=== PATIENT | male | born 1935 | race Caucasian/White ===

== ENCOUNTER 2017-07-07 09:18 | Observation (INO) | payer MEDICARE, BC, OTHER ==
[~2017-07-07] VITALS: Ht 172.7 cm; Wt 76.0 kg
[2017-07-07 09:20] VITALS: BP 142/67; PULSE 92; RESP 17; TEMP 97.3; O2SAT 100
[2017-07-07] MEDS ORDERED: SODIUM CHLORIDE 0.9% FLUSH 10 ML FLUSH IVF PRN (09:30)
[2017-07-07] MEDS ORDERED: TETANUS/DIPHTHERIA TOXOID ADULT 0.5 ML VIAL IM ONE (09:30)
[2017-07-07] MEDS ORDERED: LIDOCAINE 1%/EPINEPHrine 1:100,000 SOLN 20 ML VIAL INFIL ONE (09:30)
[2017-07-07 09:44] LABS: AUTOMATED NEUTROPHIL # 3.1 TH/MM3 (1.8-7.7); BASOPHIL # 0.1 TH/MM3 (0-0.2); BASOPHIL % 1.6 % (0.0-2.0); EOSINOPHIL # 0.8 TH/MM3 (0-0.4); EOSINOPHIL % 15.2 % (0.0-4.0); HEMATOCRIT 30.7 % (39.0-51.0); HEMOGLOBIN 10.2 GM/DL (13.0-17.0); LYMPH % 18.9 % (9.0-44.0); MEAN CELL VOLUME 89.8 FL (80.0-100.0); MEAN CORPUSCULAR HEMOGLOBIN 29.8 PG (27.0-34.0); MEAN CORPUSCULAR HGB CONC 33.2 % (32.0-36.0); MEAN PLATELET VOLUME 7.2 FL (7.0-11.0); MONO % 6.1 % (0.0-8.0); MONOCYTE # 0.3 TH/MM3 (0-0.9); NEUT % 58.2 % (16.0-70.0); PLATELET COUNT 244 TH/MM3 (150-450); RED BLOOD COUNT 3.42 MIL/MM3 (4.50-5.90); RED CELL DISTRIBUTION WIDTH 14.6 % (11.6-17.2); WHITE BLOOD COUNT 5.3 TH/MM3 (4.0-11.0)
[2017-07-07] MEDS ORDERED: LIDOCAINE 1%/EPINEPHrine 1:100,000 SOLN 30 ML VIAL INFIL ONE (09:45)
[2017-07-07 09:59] LABS: BICARBONATE 25.6 MEQ/L (21.0-32.0); CALCIUM 8.9 MG/DL (8.5-10.1); CREATININE 1.71 MG/DL (0.60-1.30)
--- NOTE | 2017-07-07 09:59 | PD ---
HPI Chief Complaint: Fall Time Seen by Provider: 09:29 Travel History International Travel<30 days: No Contact w/Intl Traveler<30days: No Traveled to known affect area: No History of Present Illness HPI The patient's 82 years old and arrives by EMS after a fall. He tripped on the street striking the right supraorbital ridge causing a laceration. Passersby reported a mechanical fall. The patient reports a brief loss of consciousness. EMS notes loss as well. In the ER he denies chest pain shortness of breath nausea vomiting dizziness and diaphoresis. The onset was sudden. Application of a dressing stopped the bleeding. He denies the usage of any medication specifically anticoagulants. PFSH Past Medical History Diabetes: Yes Patient Takes Glucophage: Yes Medical other: Yes (POOR HISTORIAN) Tetanus Vaccination: Unknown Influenza Vaccination: Yes Past Surgical History Cardiac Surgery: Yes Social History Alcohol Use: No Tobacco Use: No Substance Use: No Allergies-Medications (Allergen,Severity, Reaction): Coded Allergies: No Known Allergies (Unverified , 07/07/17) Reported Meds & Prescriptions Reported Meds & Active Scripts Active Active Prescriptions or Reported Medications Unobtainable Review of Systems Except as stated in HPI: all other systems reviewed are Neg General / Constitutional: Positive: Fever HENT: No: Headaches Physical Exam Narrative GENERAL: 82-year-old male mild distress well-nourished well-developed cooperative Vital Signs Date Time Temp Pulse Resp B/P (MAP) Pulse Ox O2 Delivery O2 Flow Rate FiO2 07/07/17 09:20 97.3 92 17 142/67 (92) 100 Room Air SKIN: Warm and dry. Trace contusion overlying the right patella without tenderness. HEAD: Atraumatic. Normocephalic. Overlying the right supraorbital ridge there is a 3 cm laceration linear about 2 mm wide. EYES: Pupils equal and round. No scleral icterus. No injection or drainage. ENT: No nasal bleeding or discharge. Mucous membranes pink and moist. NECK: Trachea midline. No JVD. CARDIOVASCULAR: Heart rate approximately 90. Her rhythm is regular. RESPIRATORY: No accessory muscle use. Clear to auscultation. Breath sounds equal bilaterally. GASTROINTESTINAL: Abdomen soft, non-tender, nondistended. Hepatic and splenic margins not palpable. MUSCULOSKELETAL: Extremities without clubbing, cyanosis, or edema. No obvious deformities. NEUROLOGICAL: Awake and alert. No obvious cranial nerve deficits. Motor grossly within normal limits. Five out of 5 muscle strength in the arms and legs. Normal speech. PSYCHIATRIC: Appropriate mood and affect; insight and judgment normal. Data Data Last Documented VS Vital Signs Date Time Temp Pulse Resp B/P (MAP) Pulse Ox O2 Delivery O2 Flow Rate FiO2 07/07/17 09:20 97.3 92 17 142/67 (92) 100 Room Air Orders Orders Electrocardiogram (07/07/17:29) Basic Metabolic Panel (Bmp) (07/07/17:29) Complete Blood Count With Diff (07/07/17:29) Act Partial Throm Time (Ptt) (07/07/17:29) Prothrombin Time / Inr (Pt) (07/07/17:29) Ct Brain W/O Iv Contrast(Rout) (07/07/17:29) Ct Cerv Spine W/O Contrast (07/07/17:29) Ecg Monitoring (07/07/17:29) Iv Access Insert/Monitor (07/07/17:29) Oximetry (07/07/17 09:29) Sodium Chloride 0.9% Flush (Ns Flush) (07/07/17 09:30) Tetanus/Diphtheria Tox Adult (Tetanus/Di (07/07/17 09:30) Lidocai-Epi 1%-1:100,000 Inj (Xylocaine- (07/07/17 09:30) Lidocai-Epi 1%-1:100,000 Inj (Xylocaine- (07/07/17 09:45) Place In Observation (07/07/17 ) Vital Signs (Adult) Q4H (07/07/17 11:31) Activity Oob Ad Gail (07/07/17 11:31) Division Supervisor / Telemetry MONY.Q8H (07/07/17 11:31) Intake + Output MONY.QSHIFT (07/07/17 11:31) Neuro Checks Q4H (07/07/17 11:31) Diet Heart Healthy (07/07/17 Lunch) Sodium Chloride 0.9% Flush (Ns Flush) (07/07/17 11:45) Sodium Chloride 0.9% Flush (Ns Flush) (07/07/17 21:00) Complete Blood Count With Diff (07/08/17 06:00) Basic Metabolic Panel (Bmp) (07/08/17 06:00) Troponin I (07/07/17 11:31) Troponin I (07/07/17 17:31) Echo 2d Comp With Doppler (07/07/17 ) Us Carotid Arteries Comp Bilat (07/07/17 ) Admit Order (Ed Use Only) (07/07/17 ) Division Supervisor / Telemetry MONY.Q8H (07/07/17 11:33) Vital Signs (Adult) Q4H (07/07/17 11:33) Activity Bed Rest (07/07/17 11:33) Labs Laboratory Tests Test 07/07/17 09:36 White Blood Count 5.3 TH/MM3 Red Blood Count 3.42 MIL/MM3 Hemoglobin 10.2 GM/DL Hematocrit 30.7 % Mean Corpuscular Volume 89.8 FL Mean Corpuscular Hemoglobin 29.8 PG Mean Corpuscular Hemoglobin Concent 33.2 % Red Cell Distribution Width 14.6 % Platelet Count 244 TH/MM3 Mean Platelet Volume 7.2 FL Neutrophils (%) (Auto) 58.2 % Lymphocytes (%) (Auto) 18.9 % Monocytes (%) (Auto) 6.1 % Eosinophils (%) (Auto) 15.2 % Basophils (%) (Auto) 1.6 % Neutrophils # (Auto) 3.1 TH/MM3 Lymphocytes # (Auto) 1.0 TH/MM3 Monocytes # (Auto) 0.3 TH/MM3 Eosinophils # (Auto) 0.8 TH/MM3 Basophils # (Auto) 0.1 TH/MM3 CBC Comment DIFF FINAL Differential Comment Prothrombin Time 11.1 SEC Prothromb Time International Ratio 1.1 RATIO Activated Partial Thromboplast Time 22.9 SEC Blood Urea Nitrogen 34 MG/DL Creatinine 1.71 MG/DL Random Glucose 269 MG/DL Calcium Level 8.9 MG/DL Sodium Level 136 MEQ/L Potassium Level 4.9 MEQ/L Chloride Level 102 MEQ/L Carbon Dioxide Level 25.6 MEQ/L Anion Gap 8 MEQ/L Estimat Glomerular Filtration Rate 38 ML/MIN [facility] Medical Decision Making Medical Screen Exam Complete: Yes Emergency Medical Condition: Yes Medical Record Reviewed: Yes Differential Diagnosis ICH, scalp laceration, contusion, skull fracture, c-spine fracture, syncope, arrhythmia, electrolyte imbalance, metabolic disarray Narrative Course CBC & BMP Diagram 3/22/18 09:36 Calcium Level 8.9 EKG shows a sinus rhythm with a rate of 91 right 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 d/w Dr Whittaker Diagnosis Primary Impression: Fall Qualified Codes: W19.XXXA - Unspecified fall, initial encounter Additional Impressions: Laceration of forehead Qualified Codes: S01.81XA - Laceration without foreign body of other part of head, initial encounter Syncope and collapse Admitting Information Admitting Physician Requests: Observation Scripts Unable to Obtain Active Prescriptions or Reported Meds Tito Foster MD Jul 07, 2017 09:59
[2017-07-07 10:00] LABS: INTERNATIONAL NORMALIZED RATIO 1.1 RATIO; PROTHROMBIN TIME - PATIENT 11.1 SEC (9.8-11.6)
--- NOTE | 2017-07-07 10:13 | RADRPT ---
EXAM DATE/TIME: 07/07/2017 09:56 [facility] COMPARISON: No previous studies available for comparison. INDICATIONS : Fall, laceration to right side of head. RADIATION DOSE: 34.73 CTDIvol (mGy) MEDICAL HISTORY : Cardiovascular disease. Diabetes mellitus type 2. SURGICAL HISTORY : None. ENCOUNTER: Initial ACUITY: 1 day PAIN SCALE: 4/10 LOCATION: Right parietal TECHNIQUE: Multiple contiguous axial images were obtained of the head. Using automated exposure control and adj ustment of the mA and/or kV according to patient size, radiation dose was kept as low as reasonably a chievable to obtain optimal diagnostic quality images. DICOM format image data is available electro nically for review and comparison. FINDINGS: There is diminished white matter attenuation in the left frontal region which appears remote. Small b polina ganglia lacunar infarcts bilaterally. No evidence of intracranial mass or hemorrhage. Nothing to suggest acute infarction. Ventricles are symmetric and normal. There is mild scalp swelling in the right frontal region. No evidence of underlying skull fracture. S inuses mastoids are clear. CONCLUSION: No acute intracranial injury Zachary Tracy MD on July 07, 2017 at 10:09 Board Certified Radiologist. This report was verified electronically.
--- NOTE | 2017-07-07 10:20 | RADRPT ---
EXAM DATE/TIME: 07/07/2017 09:56 [facility] COMPARISON: No previous studies available for comparison. INDICATIONS : Fall, neck pain. RADIATION DOSE: 13.73 CTDIvol (mGy) MEDICAL HISTORY : Cardiovascular disease. Diabetes mellitus type 2. SURGICAL HISTORY : None. ENCOUNTER: Initial ACUITY: 1 day PAIN SCALE: 4/10 LOCATION: neck TECHNIQUE: Volumetric scanning of the cervical spine was performed. Multiplanar reconstructions in the sagittal, coronal and oblique axial planes were performed. Using automated exposure control and adjustment o f the mA and/or kV according to patient size, radiation dose was kept as low as reasonably achievable to obtain optimal diagnostic quality images. DICOM format image data is available electronically f or review and comparison. FINDINGS: Cervical spine alignment is satisfactory. There is no evidence of cervical spine fracture. There is p rominent degenerative spondylosis present throughout. There is no evidence of paraspinal hematoma. At C3-4, there is broad dorsal disc protrusion. Mild endplate and bilateral uncovertebral joint osteo phytic spurring with a slight degree of bilateral bony foraminal stenosis. At C4-5, small broad central disc protrusion is present. Moderate bilateral posterior facet arthropat hy, slightly worse on the left than the right. Mild degree of bilateral bony foraminal stenosis. At C5-6, broad dorsal disc osteophyte is present. Mild bilateral uncovertebral last occurring with sl ight asymmetrically left-sided bony foraminal stenosis. Tiny nodules are present in the thyroid bilaterally. CONCLUSION: No acute bony injury in the cervical spine Zachary Tracy MD on July 07, 2017 at 10:13 Board Certified Radiologist. This report was verified electronically.
[2017-07-07] MEDS ORDERED: SODIUM CHLORIDE 0.9% FLUSH 10 ML FLUSH IV FLUSH PRN (11:45)
[2017-07-07] MEDS ORDERED: TAMS0.4C4 PO (12:50)
[2017-07-07] MEDS ORDERED: VALS1TAB63 PO (12:50)
[2017-07-07] MEDS ORDERED: METF500T PO (12:50)
[2017-07-07] MEDS ORDERED: GLIM1TAB PO (12:50)
--- NOTE | 2017-07-07 12:52 | RADRPT ---
EXAM DATE/TIME: 07/07/2017 11:56 [facility] COMPARISON: No previous studies available for comparison. INDICATIONS : Syncope. MEDICAL HISTORY : Diabetes. SURGICAL HISTORY : ENCOUNTER: Initial ACUITY: 1 day PAIN SCORE: 2/10 LOCATION: Bilateral Carotids. PEAK SYSTOLIC VELOCITIES (cm/sec): ICA/CCA RATIO: Right: 0.9 Left: 1.4 ICA: Right: 71 Left: 100 CCA: Right: 75 Left: 74 ECA: Right: 97 Left: 55 VERTEBRAL: Right: 30 antegrade Left: 49 antegrade Elevated flow velocities and ICA/CCA ratios have been found to correlate with increased degrees of vessel stenosis, calculated as percentage of diameter relative to a normal segment of distal ICA/CCA FINDINGS: RIGHT CAROTID: Mild calcified atherosclerotic plaquing at the bifurcation. No significant stenosis is visualized. T he waveforms are within normal limits. LEFT CAROTID: Mild soft atherosclerotic plaquing at the bifurcation. No significant stenosis is visualized. The wa veforms are within normal limits. VERTEBRAL ARTERIES: Antegrade flow is seen in both vertebral arteries. MISCELLANEOUS: None. CONCLUSION: Mild atherosclerotic plaquing at both carotid bifurcations. No focal high grade or hemodynamically si gnificant stenosis is demonstrated. Sylvain Doss MD on July 07, 2017 at 12:49 Board Certified Radiologist. This report was verified electronically.
--- NOTE | 2017-07-07 13:41 | EKG ---
Date Performed: 07/07/2017 Time Performed: 09:33:08 PTAGE: 82 years EKG: Marked baseline artifact PROBABLE Sinus rhythm RIGHT BUNDLE BRANCH BLOCK LEFT ANTERIOR FASCICULAR BLOCK LEFT VENTRICULAR HYPERTROPHY AND ST-T FOY E POSSIBLE SEPTAL MYOCARDIAL INFARCTION ABNORMAL ECG NO PREVIOUS TRACING DOCTOR: Yifan Ericksno Interpretating Date/Time 07/07/2017 13:22:06
[2017-07-07 14:00] VITALS: BP 136/76; PULSE 88; RESP 18; TEMP 97.7; O2SAT 96
[2017-07-07 15:32] VITALS: PULSE 82
--- NOTE | 2017-07-07 16:33 | HHI.HP ---
[facility] Service [facility] Primary Care Physician Unknown Admission Diagnosis Syncope, Fall, Laceration Diagnoses: Chief Complaint: fall, syncope Travel History International Travel<30 Days: No Contact w/Intl Traveler <30 Da: No Traveled to Known Affected Are: No History of Present Illness Written by Lacey Aguilar, acting as scribe for Dr. Whittaker on 07/07/17 at 16:28. 82-year-old male with history of DM, HTN, nocturia, presents after fall and syncope today. 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 He states he hit his head, arms, and all over. He believes he may have lost consciousness for a brief moment but remembers bystanders standing over him. He denies ever having any chest pain, shortness of breath, diaphoresis, nausea/vomiting, or any other medical complaints. He sustained laceration to his right eyebrow and multiple abrasions at his right cheek, right hand, and right knee. He denies any headache , lightheadedness, dizziness. He denies any other medical complaints at this time. When asked about chest pain, he does report 2 months ago he started having right breast/nipple pain with touch. He states his primary care physician plans to get imaging studies of his breast. 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 Hoyt in [place], [place]. He states he has a pacemaker. He denies being on any blood thinners. He has no other medical complaints at this time. Review of Systems Except as stated in HPI: all other systems reviewed are Neg Past Family Social History Past Medical History DM HTN Nocturia Past Surgical History pacemaker placement, 1 year ago Reported Medications Glimepiride 1 Mg Tab 0.5 Mg PO DAILY Take with breakfast or first main meal Valsartan 40 Mg Tab 40 Mg PO DAILY Tamsulosin (Tamsulosin HCl) 0.4 Mg Cap 0.4 Mg PO HS Metformin (Metformin HCl) 500 Mg Tab 500 Mg PO TID Allergies: Coded Allergies: No Known Allergies (Unverified , 07/07/17) Active Ordered Medications Current Medications Medications (Trade) Dose Ordered Sig/Aki Route Start Time Stop Time Status Last Admin (NS Flush) 2 ml UNSCH PRN IV FLUSH 07/07/17 11:45 (NS Flush) 2 ml BID IV FLUSH 07/07/17 21:00 (Bactroban 2% Oint) 1 applic Q12HR TOPICAL 07/07/17 21:00 Family History mother with cancer, unknown type father with alcoholism, around age 27-28 Social History Denies tobacco, alcohol, or illicit drug use. . From [place], speaks Armenian well Physical Exam Vital Signs Vital Signs Date Time Temp Pulse Resp B/P (MAP) Pulse Ox O2 Delivery O2 Flow Rate FiO2 07/07/17 15:32 82 07/07/17 14:00 97.7 88 18 136/76 (96) 96 07/07/17 13:21 07/07/17 09:20 97.3 92 17 142/67 (92) 100 Room Air Physical Exam GENERAL: Well-nourished, well-developed pleasant elderly male patient in [facility]. SKIN: Warm and dry. Abrasion on right knee, right cheek, right palm, right 4 fingertip, right distal finger, right cheek. Laceration of right eyebrow s/p suture repair. HEAD: Normocephalic. EYES: Pupils equal and round. No scleral icterus. No injection or drainage. ENT: No nasal bleeding or discharge. Mucous membranes pink and moist. NECK: Supple. Trachea midline. CARDIOVASCULAR: Regular rate and rhythm. No murmur appreciated. TTP at right nipple. RESPIRATORY: No accessory muscle use. Clear to auscultation. Breath sounds equal bilaterally. GASTROINTESTINAL: Abdomen soft, non-tender, nondistended. Normoactive bowel sounds x4. MUSCULOSKELETAL: No obvious deformities. Extremities without clubbing, cyanosis , or edema. Contractures of fingers. NEUROLOGICAL: Awake and alert. No obvious cranial nerve deficits. Motor grossly within normal limits. 5/5 muscle strength in bilateral upper and lower extremities. Normal speech. PSYCHIATRIC: Appropriate mood and affect; insight and judgment normal. Laboratory Laboratory Tests Test 07/07/17 09:36 07/07/17 14:12 White Blood Count 5.3 Red Blood Count 3.42 Hemoglobin 10.2 Hematocrit 30.7 Mean Corpuscular Volume 89.8 Mean Corpuscular Hemoglobin 29.8 Mean Corpuscular Hemoglobin Concent 33.2 Red Cell Distribution Width 14.6 Platelet Count 244 Mean Platelet Volume 7.2 Neutrophils (%) (Auto) 58.2 Lymphocytes (%) (Auto) 18.9 Monocytes (%) (Auto) 6.1 Eosinophils (%) (Auto) 15.2 Basophils (%) (Auto) 1.6 Neutrophils # (Auto) 3.1 Lymphocytes # (Auto) 1.0 Monocytes # (Auto) 0.3 Eosinophils # (Auto) 0.8 Basophils # (Auto) 0.1 CBC Comment DIFF FINAL Differential Comment Prothrombin Time 11.1 Prothromb Time International Ratio 1.1 Activated Partial Thromboplast Time 22.9 Blood Urea Nitrogen 34 Creatinine 1.71 Random Glucose 269 Calcium Level 8.9 Sodium Level 136 Potassium Level 4.9 Chloride Level 102 Carbon Dioxide Level 25.6 Anion Gap 8 Estimat Glomerular Filtration Rate 38 Troponin I 0.02 Result Diagram: 07/07/1793507/07/17935 Imaging Last Impressions Head CT 07/07/17928 Signed Impressions: Service Date/Time: June 09:56 - CONCLUSION: No acute intracranial injury Zachary Tracy MD Cervical Spine CT 07/07/17928 Signed Impressions: Service Date/Time: June 09:56 - CONCLUSION: No acute bony injury in the cervical spine Zachary Tracy MD Carotid Artery Ultrasound 07/07/17 0000 Signed Impressions: Service Date/Time: June 11:56 - CONCLUSION: Mild atherosclerotic plaquing at both carotid bifurcations. No focal high grade or hemodynamically significant stenosis is demonstrated. Sylvain Doss MD Caprini VTE Risk Assessment Caprini VTE Risk Assessment: Mod/High Risk (score >= 2) Caprini Risk Assessment Model Point Value = 1 Point Value = 2 Point Value = 3 Point Value = 5 Age 41-60 Minor surgery BMI > 25 kg/m2 Swollen legs Varicose veins or History of unexplained or recurrent spontaneous Oral contraceptives or hormone replacement Sepsis (< 1 month) Serious lung disease, including pneumonia (< 1 month) Abnormal pulmonary function Acute myocardial infarction Congestive heart failure (< 1 month) History of inflammatory bowel disease Medical patient at bed rest Age 61-74 Arthroscopic surgery Major open surgery (> 45 min) Laparoscopic surgery (> 45 min) Malignancy Confined to bed (> 72 hours) Immobilizing plaster cast Central venous access Age >= 75 History of VTE Family history of VTE Factor V Leiden Prothrombin [id number] Lupus anticoagulant Anticardiolipin antibodies Elevated serum homocysteine Heparin-induced thrombocytopenia Other congenital or acquired thrombophilia Stroke (< 1 month) Elective arthroplasty Hip, pelvis, or leg fracture Acute spinal cord injury (< 1 month) Prophylaxis Regimen Total Risk Factor Score Risk Level Prophylaxis Regimen 0-1 Low Early ambulation 2 Moderate Order ONE of the following: *Sequential Compression Device (SCD) *Heparin 5000 units SQ BID 3-4 Higher Order ONE of the following medications: *Heparin 5000 units SQ TID *Enoxaparin/Lovenox 40 mg SQ daily (WT < 150 kg, CrCl > 30 mL/min) *Enoxaparin/Lovenox 30 mg SQ daily (WT < 150 kg, CrCl > 10-29 mL/min) *Enoxaparin/Lovenox 30 mg SQ BID (WT < 150 kg, CrCl > 30 mL/min) AND/OR *Sequential Compression Device (SCD) 5 or more Highest Order ONE of the following medications: *Heparin 5000 units SQ TID (Preferred with Epidurals) *Enoxaparin/Lovenox 40 mg SQ daily (WT < 150 kg, CrCl > 30 mL/min) *Enoxaparin/Lovenox 30 mg SQ daily (WT < 150 kg, CrCl > 10-29 mL/min) *Enoxaparin/Lovenox 30 mg SQ BID (WT < 150 kg, CrCl > 30 mL/min) AND *Sequential Compression Device (SCD) Assessment and Plan Problem List: (1) ZULEMA (acute kidney injury) ICD Code: N17.9 - Acute kidney failure, unspecified (2) Fall ICD Code: W19.XXXA - Unspecified fall, initial encounter Status: Acute (3) Syncope and collapse ICD Code: R55 - Syncope and collapse Status: Acute (4) Laceration of forehead ICD Code: S01.81XA - Laceration without foreign body of other part of head, initial encounter Status: Acute Assessment and Plan 82-year-old male with history of DM, HTN, nocturia, presents after fall and syncope today 07/07. Fall/Syncope: suspect mechanical trip/fall, however reported possible loss of consciousness. -Head CT and C-spine CT images reviewed, no acute findings -Carotid U/S with mild atherosclerotic plaquing at both carotid bifurcations without any focal high grade or hemodynamically significant stenosis -Check echocardiogram -Check orthostatic vital signs -Check serial cardiac enzymes, first set negative -EKG reviewed, shows RBBB, LAFB, LVH -Check chest xray -Monitor on telemetry -Consult PT Diabetes Mellitus: chronic -BG elevated at 269 upon arrival, however possible stress reaction -monitor Accu-checks and cover with SSI -continue patient's glimepiride, hold patient's metformin for now ZULEMA: Cr 1.71, no previous labs to compare however no reported kidney disease -give IVF hydration with NS at 100cc/hr x1L -avoid nephrotoxins -repeat BMP in am HTN: chronic, BP currently well controlled -hold patient's valsartan for now with ZULEMA and suspected syncope -monitor BP, adjust antihypertensives as needed Nocturia: chronic -continue patient's flomax Eyebrow Laceration and Multiple Abrasion: Eyebrow lac s/p repair in the ED -local wound care with NS and mupirocin ointment -have sutures removed in 5 days (07/12) DVT Prophylaxis: teds/SCDs for now, hold chemoprophylaxis with recent head injury This note was transcribed by radha Aguilar. I, Dr. Gloria Whittaker personally performed the history, physical exam, and medical decision making; and confirmed the accuracy of the information in the transcribed note. Authenticated by Dr. Gloria Whittaker on 07/07/17 at 16:28. Update at 6:54 pm: RN notified me (Dr. Whittaker) that ECHO was called by Dr. Gandara and notified her that EF was 25%. I have placed a cardiology consult for further eval. Code Status Full Code, "patient states of course, I want to live as long as I can" Discussed Condition With Patient, ER MD Problem Qualifiers (1) Fall: Qualified Codes: W19.XXXA - Unspecified fall, initial encounter (2) Laceration of forehead: Qualified Codes: S01.81XA - Laceration without foreign body of other part of head, initial encounter Lacey Aguilar PA-C Jul 07, 2017 16:33 Gloria Whittaker MD Jul 07, 2017 18:55
[2017-07-07 17:31] VITALS: BP 137/71; PULSE 86; RESP 18; TEMP 98.2; O2SAT 95
[2017-07-07] MEDS ORDERED: SODIUM CHLOR 0.9% 1000 ML INJ 1,000 ML IV SCH (17:45)
[2017-07-07] MEDS ORDERED: PILL SPLITTER OTHER PRN (18:15)
--- NOTE | 2017-07-07 18:20 | RADRPT ---
EXAM DATE/TIME: 07/07/2017 17:56 [facility] COMPARISON: No previous studies available for comparison. INDICATIONS : Chest pain post fall. MEDICAL HISTORY : Cardiovascular disease. Diabetes mellitus type 2. SURGICAL HISTORY : None. ENCOUNTER: Initial ACUITY: 1 day PAIN SCORE: 5/10 LOCATION: Left chest FINDINGS: A single view of the chest demonstrates the lungs to be symmetrically aerated without evidence of mas s, infiltrate or effusion. Minimal basilar atelectasis or scarring. The cardiomediastinal contours ar e unremarkable. Osseous structures are intact. Advanced osteoarthritis left shoulder.. CONCLUSION: 1. Mild basilar atelectasis or scarring. Advanced osteoarthritis of the shoulders, left greater than right. Sumanth Barriga MD on July 07, 2017 at 18:17 Board Certified Radiologist. This report was verified electronically.
[2017-07-07 20:56] VITALS: BP 113/54; PULSE 75; RESP 16; TEMP 98.1; O2SAT 99
[2017-07-07] MEDS: SODIUM CHLORIDE 0.9% FLUSH 10 ML FLUSH IV FLUSH SCH (21:00)
[2017-07-07] MEDS: TAMSULOSIN HCL 0.4 MG CAP PO SCH (22:37)
[2017-07-08] VITALS (10 sets, daily range): BP systolic 91–116; BP diastolic 51–59; PULSE 68–84; RESP 16–20; TEMP 97.6–99.4; O2SAT 93–100
[2017-07-08] MEDS: MUPIROCIN 2% OINT 22 GM TUBE TOPICAL SCH ×3 (00:29→22:48)
[2017-07-08 07:54] LABS: AUTOMATED NEUTROPHIL # 4.2 TH/MM3 (1.8-7.7); BASOPHIL # 0.1 TH/MM3 (0-0.2); BASOPHIL % 1.2 % (0.0-2.0); EOSINOPHIL % 14.5 % (0.0-4.0); HEMATOCRIT 26.8 % (39.0-51.0); HEMOGLOBIN 9.2 GM/DL (13.0-17.0); LYMPH % 16.5 % (9.0-44.0); LYMPHOCYTE # 1.2 TH/MM3 (1.0-4.8); MEAN CELL VOLUME 88.1 FL (80.0-100.0); MEAN CORPUSCULAR HEMOGLOBIN 30.1 PG (27.0-34.0); MEAN CORPUSCULAR HGB CONC 34.2 % (32.0-36.0); MEAN PLATELET VOLUME 7.4 FL (7.0-11.0); MONO % 9.4 % (0.0-8.0); MONOCYTE # 0.7 TH/MM3 (0-0.9); NEUT % 58.4 % (16.0-70.0); PLATELET COUNT 219 TH/MM3 (150-450); RED BLOOD COUNT 3.04 MIL/MM3 (4.50-5.90); RED CELL DISTRIBUTION WIDTH 14.5 % (11.6-17.2); WHITE BLOOD COUNT 7.1 TH/MM3 (4.0-11.0)
[2017-07-08] MEDS: SODIUM CHLORIDE 0.9% FLUSH 10 ML FLUSH IV FLUSH SCH ×2 (08:15→21:00)
[2017-07-08] MEDS: GLIMEPIRIDE 1 MG TAB PO SCH (08:16)
[2017-07-08 08:21] LABS: BICARBONATE 29.3 MEQ/L (21.0-32.0); BLOOD UREA NITROGEN 26 MG/DL (7-18); CALCIUM 8.4 MG/DL (8.5-10.1); CHLORIDE 105 MEQ/L (98-107); CREATININE 1.42 MG/DL (0.60-1.30); GLOMERULAR FILTRATION RATE 47 ML/MIN (>89); GLUCOSE,RANDOM 111 MG/DL (74-106); IRON (FE) 43 MCG/DL (65-175); SODIUM (NA) 140 MEQ/L (136-145)
[2017-07-08 08:42] LABS: % SATURATION IRON PROFILE 13.9 % (20-50); FERRITIN 24 NG/ML (26-388); TOTAL IRON BINDING CAPACITY 309 MCG/DL (250-450)
--- NOTE | 2017-07-08 10:51 | HHI.PR ---
Subjective Remarks Follow up for fall, syncope. The patient reports feeling well today. He is ambulating his room and to the bathroom without difficulty. He denies any headache, lightheadedness, dizziness, chest pain, palpitations, shortness of breath, abdominal pain, nausea/vomiting, or diarrhea. Discussed with the patient's daughter over the phone while in the room with the patient. Patient' s daughter reports she received a phone call from [facility] reported the patient did pass out. [facility] reportedly stated when they tried to stand him up from the ground, he blacked out. The patient denies any syncopal event. Last night the echo report was called to my attending Dr. Whittaker, reportedly showed ejection fraction of 25%, no report available yet. The patient denies any prior history of CHF. He does report that he followed with a press puller Dr. Hoyt in [place], [place], but does not have any local press puller. The patient's daughter confirms this. The patient denies any shortness of breath, dyspnea on exertion, lower extremity edema, or weight gain. He states he can usually ambulate fair distances without any difficulty. The patient again tries to tell me that he has a pacemaker, however on chest x -ray, no pacemaker identified. Discussed with RN to obtain records from press puller. Objective Vitals Vital Signs Date Time Temp Pulse Resp B/P (MAP) Pulse Ox O2 Delivery O2 Flow Rate FiO2 07/08/17 09:02 97.6 78 18 91/54 (66) 100 07/08/17 07:11 79 07/08/17 04:15 84 07/08/17 04:06 98.0 76 16 97/56 (70) 99 07/08/17 00:07 98.2 75 16 116/56 (76) 99 107/54 (71) 106/55 (72) 07/07/17 20:56 98.1 75 16 113/54 (73) 99 07/07/17 17:31 98.2 86 18 137/71 (93) 95 07/07/17 15:32 82 07/07/17 14:00 97.7 88 18 136/76 (96) 96 07/07/17 13:21 I/O 07/07/17 07/07/17 07/07/17 07/08/17 07/08/17 07/08/17 07:00 15:00 23:00 07:00 15:00 23:00 Intake Total 990 ml Output Total 670 ml Balance 320 ml Intake IV Total 990 ml Output Urine Total 670 ml Result Diagram: 07/08/1770407/08/17704 Imaging Last Impressions Head CT 07/07/17928 Signed Impressions: Service Date/Time: June 09:56 - CONCLUSION: No acute intracranial injury Zachary Tracy MD Cervical Spine CT 07/07/17928 Signed Impressions: Service Date/Time: June 09:56 - CONCLUSION: No acute bony injury in the cervical spine Zachary Tracy MD Chest X-Ray 07/07/17 0000 Signed Impressions: Service Date/Time: June 17:56 - CONCLUSION: 1. Mild basilar atelectasis or scarring. Advanced osteoarthritis of the shoulders, left greater than right. Sumanth Barriga MD Carotid Artery Ultrasound 07/07/17 0000 Signed Impressions: Service Date/Time: June 11:56 - CONCLUSION: Mild atherosclerotic plaquing at both carotid bifurcations. No focal high grade or hemodynamically significant stenosis is demonstrated. Sylvain Doss MD Objective Remarks GENERAL: Well-nourished, well-developed pleasant elderly male patient in [facility]. SKIN: Warm and dry. Abrasion on right knee, right cheek, right palm, right 4 fingertip, right distal finger, right cheek. Laceration of right eyebrow s/p suture repair. HEENT: Normocephalic. Pupils equal and round. Mucous membranes pink and moist. NECK: Supple. Trachea midline. CARDIOVASCULAR: Regular rate and rhythm. No murmur appreciated. TTP at right nipple. RESPIRATORY: No accessory muscle use. Clear to auscultation. Breath sounds equal bilaterally. GASTROINTESTINAL: Abdomen soft, non-tender, nondistended. Normoactive bowel sounds x4. MUSCULOSKELETAL: No obvious deformities. Extremities without clubbing, cyanosis , or edema. Contractures of fingers. NEUROLOGICAL: Awake and alert. No obvious cranial nerve deficits. Motor grossly within normal limits. 5/5 muscle strength in bilateral upper and lower extremities. Normal speech. PSYCHIATRIC: Appropriate mood and affect; insight and judgment normal. Medications and IVs Current Medications Medications (Trade) Dose Ordered Sig/Aki Route Start Time Stop Time Status Last Admin (NS Flush) 2 ml UNSCH PRN IV FLUSH 07/07/17 11:45 (NS Flush) 2 ml BID IV FLUSH 07/07/17 21:00 07/08/17 08:15 (Bactroban 2% Oint) 1 applic Q12HR TOPICAL 07/07/17 21:00 07/08/17 08:18 (Amaryl) 0.5 mg DAILY PO 07/08/17 09:00 07/08/17 08:16 (Flomax) 0.4 mg HS PO 07/07/17 21:00 07/07/17 22:37 (Pill Splitter) 1 ea UNSCH PRN OTHER 07/07/17 18:15 A/P Problem List: (1) ZULEMA (acute kidney injury) ICD Code: N17.9 - Acute kidney failure, unspecified (2) Fall ICD Code: W19.XXXA - Unspecified fall, initial encounter Status: Acute (3) Syncope and collapse ICD Code: R55 - Syncope and collapse Status: Acute (4) Laceration of forehead ICD Code: S01.81XA - Laceration without foreign body of other part of head, initial encounter Status: Acute Assessment and Plan 82-year-old male with history of DM, HTN, nocturia, presents after fall and syncope today 07/07. Fall/Syncope: suspect mechanical trip/fall, however reported loss of consciousness by [facility]. -Head CT and C-spine CT images reviewed, no acute findings -Carotid U/S with mild atherosclerotic plaquing at both carotid bifurcations without any focal high grade or hemodynamically significant stenosis -Echocardiogram with reported EF 25%, no official report available yet -Orthostatic vital signs negative -Troponins negative x2, EKG reviewed, shows RBBB, LAFB, LVH - no previous EKG to compare -Chest xray reviewed, shows mild basilar atelectasis or scarring; otherwise no acute cardiopulmonary findings; NO PACER PRESENT -Monitor on telemetry -Consult PT, no PT needed at discharge Cardiomyopathy?: wet read on echocardiogram reportedly with EF 25%. Patient is not aware of CHF diagnosis, claiming he has Pacer however CXR does not show any pacer -request records from patient's previous press puller Dr. Hoyt in [place], [place] -consult cardiology Diabetes Mellitus: chronic -BG elevated at 269 upon arrival, however suspect stress reaction -monitor Accu-checks and cover with SSI -continue patient's glimepiride, hold patient's metformin for now -BG improved ZULEMA: Cr 1.71, no previous labs to compare however no reported kidney disease -given IVF hydration with NS x1L -avoid nephrotoxins -renal function improving, repeat Cr 1.4, will give additional IVF with NS at 84cc/hr x1L -repeat BMP in am HTN: chronic, BP currently well controlled -hold patient's valsartan for now with ZULEMA and suspected syncope -monitor BP, adjust antihypertensives as needed Nocturia: chronic -continue patient's flomax Eyebrow Laceration and Multiple Abrasions: Eyebrow lac s/p repair in the ED -local wound care with NS and mupirocin ointment -have sutures removed in 5 days (07/12) DVT Prophylaxis: teds/SCDs for now, hold chemoprophylaxis with recent head injury Discharge Planning Discharge pending cardiology evaluation and clearance. Problem Qualifiers (1) Fall: Qualified Codes: W19.XXXA - Unspecified fall, initial encounter (2) Laceration of forehead: Qualified Codes: S01.81XA - Laceration without foreign body of other part of head, initial encounter Lacey Aguilar PA-C Jul 08, 2017 10:51 am
[2017-07-08] MEDS ORDERED: SODIUM CHLOR 0.9% 1000 ML INJ 1,000 ML IV SCH (15:45)
--- NOTE | 2017-07-08 15:56 | ECHRPT ---
Indication: SYNCOPE CONCLUSIONS The left ventricular systolic function is severely reduced with an estimated ejection fraction in th e range of 20-25%. Wall thickness is normal. There is diffuse global hypokinesis with distinct regional wall motion abnormalities. The left atrial size is moderately dilated. Moderate thickening of the mitral valve leaflets. Moderate mitral valve regurgitation. Trace aortic valve regurgitation. There is mild tricuspid valve regurgitation. The estimated pulmonary arterial pressure is 36.4 mmHg. Mild pulmonary valve regurgitation. BP: 142 / 67 HR: 76 Rhythm: MEASUREMENTS (Male / Female) Normal Values Technical Quality:Fair 2D ECHO LV Diastolic Diameter PLAX 5.5 cm 4.2 - 5.9 / 3.9 - 5.3 cm LV Systolic Diameter PLAX 5.1 cm IVS Diastolic Thickness 1.0 cm 0.6 - 1.0 / 0.6 - 0.9 cm LVPW Diastolic Thickness 1.0 cm 0.6 - 1.0 / 0.6 - 0.9 cm LV Relative Wall Thickness 0.4 RV Internal Dim ED PLAX 2.5 cm LVOT Diameter 2.3 cm LA Systolic Diameter LX 3.9 cm 3.0 - 4.0 / 2.7 - 3.8 cm LV Ejection Fraction MOD BP 26.8 % >= 55 % LV Cardiac Index MOD BP 2378.9 cm/minm LV Ejection Fraction MOD 4C 23.6 % LV Cardiac Index MOD 4C 1942.8 cm/minm LV Ejection Fraction 4C AL 26.4 % LV Cardiac Index 4C AL 2298.2 cm/minm LV Ejection Fraction MOD 2C 29.7 % LV Cardiac Index MOD 2C 2696.1 cm/minm LV Ejection Fraction 2C AL 30.5 % LV Cardiac Index 2C AL 2737.1 cm/minm LA Volume Index 49.8 cm/m 16 - 28 cm/m M-MODE Aortic Root Diameter MM 2.8 cm LA Systolic Diameter MM 3.8 cm LA Ao Ratio MM 1.4 MV E Point Septal Separation 2.7 cm AV Cusp Separation MM 2.0 cm DOPPLER AV Peak Velocity 122.0 cm/s AV Peak Gradient 6.0 mmHg LVOT Peak Velocity 74.5 cm/s LVOT Peak Gradient 2.2 mmHg AV Area Cont Eq pk 2.5 cm MV Area PHT 4.7 cm Mitral E Point Velocity 90.8 cm/s Mitral A Point Velocity 103.0 cm/s Mitral E to A Ratio 0.9 LV E' Lateral Velocity 7.0 cm/s Mitral E to LV E' Lateral Ratio 12.9 LV E' Septal Velocity 6.5 cm/s Mitral E to LV E' Septal Ratio 13.9 TR Peak Velocity 257.0 cm/s TR Peak Gradient 26.4 mmHg Right Atrial Pressure 10.0 mmHg Pulmonary Artery Systolic Pressu 36.4 mmHg Right Ventricular Systolic Press 36.4 mmHg FINDINGS LEFT VENTRICLE The left ventricular systolic function is severely reduced with an estimated ejection fraction in th e range of 20-25%. Wall thickness is normal. There is diffuse global hypokinesis with distinct regional wall motion abnormalities. RIGHT VENTRICLE Normal right ventricular size and systolic function. LEFT ATRIUM The left atrial size is moderately dilated. RIGHT ATRIUM The right atrial size is normal. ATRIAL SEPTUM Normal atrial septal thickness without atrial level shunting by limited color doppler interrogation. AORTA The aortic root and proximal ascending aorta are normal in size on limited imaging. MITRAL VALVE Moderate thickening of the mitral valve leaflets. Moderate mitral valve regurgitation. AORTIC VALVE Trileaflet aortic valve. Trace aortic valve regurgitation. TRICUSPID VALVE Structurally normal tricuspid valve. There is mild tricuspid valve regurgitation. The estimated pulmonary arterial pressure is 36.4 mmHg. PULMONARY VALVE Mild pulmonary valve regurgitation. VESSELS The inferior vena cava is normal in size. PERICARDIUM No pericardial effusion. Edi Gandara MD, FACC, [facility] [place] (Electronically Signed) Final Date:08 July 2017 15:56
[2017-07-08] MEDS ORDERED: ASPIRIN EC 81 MG TABEC PO ONE (17:15)
[2017-07-08] MEDS ORDERED: CARVEDILOL 3.125 MG TAB PO ONE (17:15)
--- NOTE | 2017-07-08 19:59 | MB ---
cc: Edi Gandara MD, Arthur W MD DATE: 07/08/2017 HISTORY OF PRESENT ILLNESS: Zachary is a very pleasant 82-year-old gentleman who presented to the ER after a syncopal event. He has trauma to his right periorbital area and right maxillary area. He states he did have some shortness of breath prior to that event. The ER note notes, however, he tripped on the street. Brief loss of consciousness was reported. Otherwise, he denies any fevers, chills, cough, GI or bleeding, PND or orthopnea. PAST MEDICAL HISTORY: Per history of present illness. He has a history of diabetes. He has a history of cardiac surgery. SOCIAL HISTORY: He denies tobacco or alcohol use. ALLERGIES: NONE. MEDICATIONS: In the hospital, glimepiride 0.5 mg daily, tamsulosin 0.4 mg at bedtime. PHYSICAL EXAMINATION: VITAL SIGNS: Blood pressure 104/56, pulse 68, respiratory rate 18, temperature 97.6. GENERAL: He is alert and oriented x3, in no acute distress. NECK: Supple. No JVD. No bruit. CARDIOVASCULAR: S1, S2. No murmurs, rubs or gallops. LUNGS: Clear to auscultation bilaterally. ABDOMEN: Soft, nontender, nondistended, with positive bowel sounds. EXTREMITIES: No lower extremity edema. DATA: Chest x-ray shows mild basilar atelectasis or scarring, advanced osteoarthritis of the shoulders, left greater than right. Carotid ultrasound: Mild atherosclerotic plaquing at both carotid bifurcations. Head CT: No acute intracranial injury. Cervical spine CT: No acute bony injury in the cervical spine. EKG: Normal sinus rhythm at 91 beats per minute, right bundle branch block, left anterior fascicular block, nonspecific ST-T wave changes. Corrected QT interval was 425 milliseconds. Echocardiogram read by myself shows PA pressure 36.4 mmHg, moderate MR, EF 20% to 25%, global hypokinesis, moderate mitral valve regurgitation. The left ventricle appears to be at least mildly to moderately dilated, moderately dilated left atrium. White count 7.1, hemoglobin 9.2, hematocrit 26.8, platelet count 219. Sodium 140, potassium 4.5, chloride 105, bicarbonate 29.3, BUN 26, creatinine 1.42, glucose 111. Troponin is 0.02 and 0.03. INR is 1.1. DIAGNOSES: 1. Cardiomyopathy. 2. Moderate mitral regurgitation. 3. Chronic renal insufficiency. 4. Diabetes. 5. Fall. 6. Loss of consciousness. 7. Carotid stenosis. 8. Anemia. DISCUSSION: The patient is essentially asymptomatic. It appears that his loss of consciousness was after the fall and the trauma. Cardiomyopathy was determined serendipitously. Nevertheless, the patient should be treated with optimal medical therapy, including beta anya, STEPHANIE inhibitor. He appears to be euvolemic by exam. I do think he could be discharged from a cardiovascular standpoint with followup in my office for further evaluation and management. We will also add baby aspirin 81 mg a day. Statin is also indicated given his carotid stenosis; however, we will need to check his liver function tests, CK and baseline lipids. MD SNEHA Kelly/SA/ , 05:12 PM , 06:36 PM
[2017-07-08] MEDS: CARVEDILOL 3.125 MG TAB PO SCH (21:00)
[2017-07-08] MEDS: TAMSULOSIN HCL 0.4 MG CAP PO SCH (22:48)
[2017-07-09 03:42] VITALS: BP 116/57; PULSE 70; RESP 16; TEMP 97.9; O2SAT 96
[2017-07-09 07:00] VITALS: PULSE 99
[2017-07-09] MEDS ORDERED: DEXTROSE 50% IN WATER 50 ML VIAL(D50) IV PUSH PRN (07:45)
[2017-07-09] MEDS ORDERED: GLUCAGON 1 MG/ML VIAL OTHER PRN (07:45)
[2017-07-09] MEDS ORDERED: Mupirocin 2% Oint TOPICAL (07:48)
[2017-07-09] MEDS ORDERED: ECASA81 PO (07:48)
[2017-07-09] MEDS ORDERED: CARV3.125 PO (07:48)
[2017-07-09 07:50] VITALS: BP 113/66; PULSE 76; RESP 16; TEMP 97.8; O2SAT 96
[2017-07-09] MEDS ORDERED: LIPI20TA PO (07:50)
--- NOTE | 2017-07-09 07:50 | HHI.DCPOC ---
Discharge Care Plan Diagnosis: (1) Syncope and collapse (2) Fall (3) CHF (congestive heart failure) (4) Laceration of forehead (5) ZULEMA (acute kidney injury) Goals to Promote Your Health * To prevent worsening of your condition and complications * To maintain your health at the optimal level Directions to Meet Your Goals Take your medications as prescribed Follow your dietary instruction Follow activity as directed Keep your appointments as scheduled Take your immunizations and boosters as scheduled If your symptoms worsen call your PCP, if no PCP go to Urgent Care Center or Emergency Room Smoking is Dangerous to Your Health. Avoid second hand smoke Call the 24-hour hour crisis hotline for domestic abuse at Lacey Aguilar PA-C Jul 09, 2017 7:50 am
[2017-07-09] MEDS ORDERED: INSULIN ASPART SUPPLEMENTAL SCALE SQ SCH (08:00)
--- NOTE | 2017-07-09 08:53 | HHI.DS ---
cc: Edi Gandara MD Discharge Summary Admission Date Jul 07, 2017 at 11:35 am Discharge Date: Jul 09, 2017 Admitting Diagnosis Syncope, Fall, Laceration (1) Fall ICD Code: W19.XXXA - Unspecified fall, initial encounter Diagnosis: Principal Status: Acute (2) Syncope and collapse ICD Code: R55 - Syncope and collapse Diagnosis: Principal Status: Acute (3) ZULEMA (acute kidney injury) ICD Code: N17.9 - Acute kidney failure, unspecified Diagnosis: Secondary (4) Laceration of forehead ICD Code: S01.81XA - Laceration without foreign body of other part of head, initial encounter Diagnosis: Secondary Status: Acute Procedures Eyebrow laceration repair in the ED on 07/07 Brief History - From Admission 82-year-old male with history of DM, HTN, nocturia, presents after fall and syncope today. 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 He states he hit his head, arms, and all over. He believes he may have lost consciousness for a brief moment but remembers bystanders standing over him. He denies ever having any chest pain, shortness of breath, diaphoresis, nausea/vomiting, or any other medical complaints. He sustained laceration to his right eyebrow and multiple abrasions at his right cheek, right hand, and right knee. He denies any headache , lightheadedness, dizziness. He denies any other medical complaints at this time. When asked about chest pain, he does report 2 months ago he started having right breast/nipple pain with touch. He states his primary care physician plans to get imaging studies of his breast. He previously saw alteration worker Dr. Hoyt in [place], [place]. He states he has a pacemaker. He denies being on any blood thinners. He has no other medical complaints at this time. CBC/BMP: 07/08/17 0705 07/08/17 0705 Significant Findings Laboratory Tests Test 07/07/17 09:36 07/07/17 14:12 07/07/17 20:51 07/08/17 07:05 Red Blood Count 3.42 MIL/MM3 (4.50-5.90) 3.04 MIL/MM3 (4.50-5.90) Hemoglobin 10.2 GM/DL (13.0-17.0) 9.2 GM/DL (13.0-17.0) Hematocrit 30.7 % (39.0-51.0) 26.8 % (39.0-51.0) Eosinophils (%) (Auto) 15.2 % (0.0-4.0) 14.5 % (0.0-4.0) Eosinophils # (Auto) 0.8 TH/MM3 (0-0.4) 1.0 TH/MM3 (0-0.4) Activated Partial Thromboplast Time 22.9 SEC (24.3-30.1) Blood Urea Nitrogen 34 MG/DL (7-18) 26 MG/DL (7-18) Creatinine 1.71 MG/DL (0.60-1.30) 1.42 MG/DL (0.60-1.30) Random Glucose 269 MG/DL (74-106) 111 MG/DL (74-106) Estimat Glomerular Filtration Rate 38 ML/MIN (>89) 47 ML/MIN (>89) Monocytes (%) (Auto) 9.4 % (0.0-8.0) Calcium Level 8.4 MG/DL (8.5-10.1) Iron Level 43 MCG/DL (65-175) Percent Iron Saturation 13.9 % (20-50) Ferritin 24 NG/ML (26-388) Imaging Last Impressions Head CT 07/07/17928 Signed Impressions: Service Date/Time: June 09:56 - CONCLUSION: No acute intracranial injury Zachary Tracy MD Cervical Spine CT 07/07/17928 Signed Impressions: Service Date/Time: June 09:56 - CONCLUSION: No acute bony injury in the cervical spine Zachary Tracy MD Chest X-Ray 07/07/17 0000 Signed Impressions: Service Date/Time: June 17:56 - CONCLUSION: 1. Mild basilar atelectasis or scarring. Advanced osteoarthritis of the shoulders, left greater than right. Sumanth Barriga MD Carotid Artery Ultrasound 07/07/17 0000 Signed Impressions: Service Date/Time: June 11:56 - CONCLUSION: Mild atherosclerotic plaquing at both carotid bifurcations. No focal high grade or hemodynamically significant stenosis is demonstrated. Sylvain Doss MD PE at Discharge GENERAL: Well-nourished, well-developed pleasant elderly male patient in [facility]. SKIN: Warm and dry. Abrasion on right knee, right cheek, right palm, right 4 fingertip, right distal finger, right cheek. Laceration of right eyebrow s/p suture repair. HEENT: Normocephalic. Pupils equal and round. Mucous membranes pink and moist. NECK: Supple. Trachea midline. CARDIOVASCULAR: Regular rate and rhythm. No murmur appreciated. TTP at right nipple. RESPIRATORY: No accessory muscle use. Clear to auscultation. Breath sounds equal bilaterally. GASTROINTESTINAL: Abdomen soft, non-tender, nondistended. Normoactive bowel sounds x4. MUSCULOSKELETAL: No obvious deformities. Extremities without clubbing, cyanosis , or edema. Contractures of fingers. NEUROLOGICAL: Awake and alert. No obvious cranial nerve deficits. Motor grossly within normal limits. 5/5 muscle strength in bilateral upper and lower extremities. Normal speech. PSYCHIATRIC: Appropriate mood and affect; insight and judgment normal. Pt update on day of discharge The patient reports feeling well again today. Ambulating the hallway without difficulty. He wants to go home. Denies any headache, lightheadedness, dizziness , chest pain, palpitations, shortness of breath, or abdominal complaints. Hospital Course 82-year-old male with history of DM, HTN, nocturia, presents after fall and syncope today 07/07. Fall/Syncope: suspect mechanical trip/fall, however reported loss of consciousness by [facility]. Head CT and C-spine CT images reviewed, no acute findings. Carotid U/S with mild atherosclerotic plaquing at both carotid bifurcations without any focal high grade or hemodynamically significant stenosis. Echocardiogram with reported EF 25%, patient unaware of any hx of CHF , see below. Orthostatic vital signs negative. Troponins negative x2, EKG reviewed, shows RBBB, LAFB, LVH - no previous EKG to compare. Chest xray reviewed, shows mild basilar atelectasis or scarring; otherwise no acute cardiopulmonary findings; NO PACER PRESENT (was previously reported by patient) . Monitor on telemetry, no acute findings. Consult PT, no PT needed at discharge. No further symptoms throughout admission. Stable for discharge. Cardiomyopathy: echocardiogram showed EF 25%. Patient is not aware of CHF diagnosis, claiming he has Pacer however CXR does not show any pacer/AICD. Requested records from patient's previous alteration worker Dr. Hoyt in [place], [place]. Consulted cardiology, seen by Dr. Gandara, recommended optimal medical therapy, started on coreg, unable to start STEPHANIE due to soft blood pressures and ZULEMA. Started on aspirin 81mg daily. LDL 41 therefore no statin indicated. Diabetes Mellitus: chronic. BG elevated at 269 upon arrival, however suspect stress reaction. Monitored Accu-checks and cover with SSI. Continued patient's glimepiride, hold patient's metformin while in hospital. BG improved. ZULEMA: Cr 1.71, no previous labs to compare however no reported kidney disease. Given IVF hydration with NS x2L total. Avoid nephrotoxins. Renal function improving, Cr. 1.71 --> 1.4. Awaiting repeat labs today. HTN: chronic, BP currently well controlled. Discontinued patient's valsartan for now with ZULEMA and suspected syncope; patient was started on coreg instead with CHF as above. BP soft but stable. Nocturia: chronic. Continue patient's flomax. Eyebrow Laceration and Multiple Abrasions: Eyebrow lac s/p repair in the ED . Local wound care with NS and mupirocin ointment. Have sutures removed in 5 days (07/12). Pt Condition on Discharge: Stable Discharge Disposition: Discharge Home Discharge Time: <= 30 minutes Discharge Instructions DIET: Follow Instructions for: Heart Healthy Diet Activities you can perform: Regular-No Restrictions Follow up Referrals: Cardiology - 1 Week with Edi Gandara MD PCP Follow-up - 1 Week New Medications: Aspirin DR (Aspirin DR) 81 Mg Tabdr 81 MG PO DAILY for Blood Clot Prevention, #30 TAB Carvedilol (Coreg) 3.125 Mg Tab 3.125 MG PO Q12HR for CHF, #60 TAB Check blood pressure every morning, do not take this medication if BP less than 110 [Mupirocin 2% Oint] () 22 APPLIC/22 GM OINT 1 APPLIC TOPICAL Q12HR for wounds, #1 TUBE Apply to eyebrow laceration and abrasions on cheek, hands, knee. Continued Medications: Glimepiride (Glimepiride) 1 Mg Tab 0.5 MG PO DAILY for Blood Sugar Management, #30 TAB 0 Refills Take with breakfast or first main meal Metformin (Metformin) 500 Mg Tab 500 MG PO TID for Blood Sugar Management, #90 TAB 0 Refills Tamsulosin (Tamsulosin) 0.4 Mg Cap 0.4 MG PO HS for Manage Prostate Problems, #30 CAP 0 Refills Discontinued Medications: Valsartan (Valsartan) 40 Mg Tab 40 MG PO DAILY, #60 TAB 0 Refills Lacey Aguilar PA-C Jul 09, 2017 08:53
[2017-07-09] MEDS: SODIUM CHLORIDE 0.9% FLUSH 10 ML FLUSH IV FLUSH SCH (09:00)
[2017-07-09] MEDS: MUPIROCIN 2% OINT 22 GM TUBE TOPICAL SCH (09:00)
[2017-07-09] MEDS ORDERED: ASPIRIN EC 81 MG TABEC PO SCH (09:00)
[2017-07-09] MEDS: GLIMEPIRIDE 1 MG TAB PO SCH (09:00)
[2017-07-09] MEDS: CARVEDILOL 3.125 MG TAB PO SCH (09:00)
[2017-07-09 11:06] LABS: AUTOMATED NEUTROPHIL # 4.2 TH/MM3 (1.8-7.7); BASOPHIL # 0.1 TH/MM3 (0-0.2); BASOPHIL % 1.4 % (0.0-2.0); EOSINOPHIL % 15.2 % (0.0-4.0); HEMOGLOBIN 9.9 GM/DL (13.0-17.0); LYMPH % 14.2 % (9.0-44.0); MEAN CELL VOLUME 89.6 FL (80.0-100.0); MEAN CORPUSCULAR HEMOGLOBIN 30.5 PG (27.0-34.0); MEAN CORPUSCULAR HGB CONC 34.1 % (32.0-36.0); MEAN PLATELET VOLUME 7.7 FL (7.0-11.0); MONO % 7.5 % (0.0-8.0); MONOCYTE # 0.5 TH/MM3 (0-0.9); NEUT % 61.7 % (16.0-70.0); PLATELET COUNT 230 TH/MM3 (150-450); RED BLOOD COUNT 3.24 MIL/MM3 (4.50-5.90); RED CELL DISTRIBUTION WIDTH 14.5 % (11.6-17.2); WHITE BLOOD COUNT 6.8 TH/MM3 (4.0-11.0)
[2017-07-09 11:22] LABS: ALBUMIN 3.8 GM/DL (3.4-5.0); BICARBONATE 25.8 MEQ/L (21.0-32.0); CALCIUM 8.8 MG/DL (8.5-10.1); DIRECT BILIRUBIN ADULT 0.1 MG/DL (0.0-0.2)
[2017-07-09 11:23] LABS: CREATININE 1.31 MG/DL (0.60-1.30)
[2017-07-09 11:29] LABS: CHOLESTEROL/ HDL RATIO 1.64 RATIO; HDL CHOLESTEROL 80.3 MG/DL (40.0-60.0); INDIRECT BILIRUBIN 0.4 MG/DL (0.0-0.8); TOTAL BILIRUBIN ADULT 0.5 MG/DL (0.2-1.0); TOTAL PROTEIN 7.8 GM/DL (6.4-8.2)
[2017-07-09 12:05] VITALS: BP 108/59; PULSE 72; RESP 18; TEMP 97.4; O2SAT 96
--- NOTE | 2017-07-09 12:36 | PD.CARD.PN ---
Subjective Subjective Remarks alert in nad, assymptomatic Objective Medications Current Medications Medications (Trade) Dose Ordered Sig/Aki Route Start Time Stop Time Status Last Admin (NS Flush) 2 ml UNSCH PRN IV FLUSH 07/07/17 11:45 (NS Flush) 2 ml BID IV FLUSH 07/07/17 21:00 07/09/17 09:00 (Bactroban 2% Oint) 1 applic Q12HR TOPICAL 07/07/17 21:00 07/09/17 09:00 (Amaryl) 0.5 mg DAILY PO 07/08/17 09:00 07/09/17 09:00 (Flomax) 0.4 mg HS PO 07/07/17 21:00 07/08/17 22:48 (Pill Splitter) 1 ea UNSCH PRN OTHER 07/07/17 18:15 (Coreg) 3.125 mg Q12HR PO 07/08/17 21:00 07/09/17 09:00 (Ecotrin Ec) 81 mg DAILY PO 07/09/17 09:00 07/09/17 09:00 (D50w (Vial) Inj) 50 ml UNSCH PRN IV PUSH 07/09/17 07:45 (Glucagon Inj) 1 mg UNSCH PRN OTHER 07/09/17 07:45 (NovoLOG SUPPLEMENTAL SCALE) 1 ACHS SLIDING SCALE SQ 07/09/17 08:00 Vital Signs / I&O Vital Signs Date Time Temp Pulse Resp B/P (MAP) Pulse Ox O2 Delivery O2 Flow Rate FiO2 07/09/17 12:05 97.4 72 18 108/59 (75) 96 07/09/17 07:50 97.8 76 16 113/66 (82) 96 07/09/17 03:42 97.9 70 16 116/57 (76) 96 07/08/17 23:32 98.7 70 16 101/59 (73) 96 07/08/17 23:10 70 07/08/17 20:35 99.4 71 20 101/51 (68) 95 07/08/17 15:44 97.6 68 18 104/56 (72) 97 07/08/17 13:10 97.8 68 18 102/57 (72) 93 I/O 07/08/17 07/08/17 07/08/17 07/09/17 07/09/17 07/09/17 07:00 15:00 23:00 07:00 15:00 23:00 Intake Total 990 ml 990 ml Output Total 670 ml Balance 320 ml 990 ml Intake IV Total 990 ml 990 ml Output Urine Total 670 ml # Voids 5 Physical Exam GENERAL: SKIN: Warm and dry. HEAD: Normocephalic. EYES: No scleral icterus. No injection or drainage. NECK: Supple, trachea midline. No JVD or lymphadenopathy. CARDIOVASCULAR: Regular rate and rhythm without murmurs, gallops, or rubs. RESPIRATORY: Breath sounds equal bilaterally. No accessory muscle use. GASTROINTESTINAL: Abdomen soft, non-tender, nondistended. MUSCULOSKELETAL: No cyanosis, or edema. BACK: Nontender without obvious deformity. No CVA tenderness. Laboratory Laboratory Tests Test 07/09/17 09:15 White Blood Count 6.8 TH/MM3 Red Blood Count 3.24 MIL/MM3 Hemoglobin 9.9 GM/DL Hematocrit 29.0 % Mean Corpuscular Volume 89.6 FL Mean Corpuscular Hemoglobin 30.5 PG Mean Corpuscular Hemoglobin Concent 34.1 % Red Cell Distribution Width 14.5 % Platelet Count 230 TH/MM3 Mean Platelet Volume 7.7 FL Neutrophils (%) (Auto) 61.7 % Lymphocytes (%) (Auto) 14.2 % Monocytes (%) (Auto) 7.5 % Eosinophils (%) (Auto) 15.2 % Basophils (%) (Auto) 1.4 % Neutrophils # (Auto) 4.2 TH/MM3 Lymphocytes # (Auto) 1.0 TH/MM3 Monocytes # (Auto) 0.5 TH/MM3 Eosinophils # (Auto) 1.0 TH/MM3 Basophils # (Auto) 0.1 TH/MM3 CBC Comment DIFF FINAL Differential Comment Blood Urea Nitrogen 30 MG/DL Creatinine 1.31 MG/DL Random Glucose 158 MG/DL Total Protein 7.8 GM/DL Albumin 3.8 GM/DL Calcium Level 8.8 MG/DL Magnesium Level 2.0 MG/DL Alkaline Phosphatase 59 U/L Aspartate Amino Transf (AST/SGOT) 16 U/L Alanine Aminotransferase (ALT/SGPT) 14 U/L Total Bilirubin 0.5 MG/DL Direct Bilirubin 0.1 MG/DL Sodium Level 138 MEQ/L Potassium Level 4.6 MEQ/L Chloride Level 103 MEQ/L Carbon Dioxide Level 25.8 MEQ/L Anion Gap 9 MEQ/L Estimat Glomerular Filtration Rate 52 ML/MIN Indirect Bilirubin 0.4 MG/DL Total Creatine Kinase 145 U/L B-Type Natriuretic Peptide 221 PG/ML Triglycerides Level 57 MG/DL Cholesterol Level 132 MG/DL LDL Cholesterol 40 MG/DL HDL Cholesterol 80.3 MG/DL Cholesterol/HDL Ratio 1.64 RATIO Assessment and Plan Problem List: (1) Cardiomyopathy ICD Codes: I42.9 - Cardiomyopathy, unspecified (2) Mitral regurgitation ICD Codes: I34.0 - Nonrheumatic mitral (valve) insufficiency (3) Fall ICD Codes: W19.XXXA - Unspecified fall, initial encounter Status: Acute (4) Laceration of forehead ICD Codes: S01.81XA - Laceration without foreign body of other part of head, initial encounter Status: Acute (5) ZULEMA (acute kidney injury) ICD Codes: N17.9 - Acute kidney failure, unspecified (6) CHF (congestive heart failure) ICD Codes: I50.9 - Heart failure, unspecified Assessment and Plan 1.) Cardiomyopathy - continue coreg, dae held due to arf, assymptomatic, euvolemic, nyha class 1 2.) Carotid stenosis - assymptomatic, continue aspirin 81 mg qd, ldl=41 off meds , therefore statin held 3.) MR - moderate, assymptomatic, further workup as outpatient 4.) Patient repeatedly advised to f/u with me in my office 07/11/17 Problem Qualifiers (1) Fall: Qualified Codes: W19.XXXA - Unspecified fall, initial encounter (2) Laceration of forehead: Qualified Codes: S01.81XA - Laceration without foreign body of other part of head, initial encounter (3) CHF (congestive heart failure): Qualified Codes: I50.22 - Chronic systolic (congestive) heart failure Edi Gandara MD Jul 09, 2017 12:36
== END 2017-07-09 19:58 | disposition home or self-care (01) ==
LOC: NEPE 09:18 → NEDA 11:35 → NEPHCDU 14:02
PROVIDERS: ADMIT Hospitalist; ATTEND Hospitalist
DX: R55 Syncope and collapse (principal); I50.9 Heart failure, unspecified; S01.81XA Laceration without foreign body of other part of head, initial encounter; S01.111A Laceration without foreign body of right eyelid and periocular area, initial encounter; S80.211A Abrasion, right knee, initial encounter; N17.9 Acute kidney failure, unspecified; I42.9 Cardiomyopathy, unspecified; D64.9 Anemia, unspecified; E11.22 Type 2 diabetes mellitus with diabetic chronic kidney disease; I13.0 Hypertensive heart and chronic kidney disease with heart failure and stage 1 through stage 4 chronic kidney disease, or unspecified chronic kidney disease; I34.0 Nonrheumatic mitral (valve) insufficiency; I45.2 Bifascicular block; R35.1 Nocturia; W01.0XXA Fall on same level from slipping, tripping and stumbling without subsequent striking against object, initial encounter; Y93.01 Activity, walking, marching and hiking; Y92.410 Unspecified street and highway as the place of occurrence of the external cause; Z23 Encounter for immunization
CPT/HCPCS: 12013; 70450; 71045; 72125; 80048; 80061; 80076; 82550; 82728; 82948; 83540; 83550; 83735; 83880; 84484; 85025; 85610; 85730; 90471; 90714; 93005; 93306; 93880; 96360; 96361; 97161; 99285; G0378; G8987; G8988; J7030

== ENCOUNTER 2017-07-12 07:47 | Emergency (ER) | payer MEDICARE, BC, OTHER ==
[~2017-07-12] VITALS: Ht 170.2 cm; Wt 67.0 kg
[~2017-07-12 07:47] MED LIST: CARV3.125 PO; ECASA81 PO; GLIM1TAB PO; METF500T PO; Mupirocin 2% Oint TOPICAL; TAMS0.4C4 PO
[2017-07-12 07:50] VITALS: BP 156/70; PULSE 91; RESP 20; TEMP 98.1; O2SAT 100
--- NOTE | 2017-07-12 08:21 | PD ---
HPI Chief Complaint: Wound/Suture/Staple Re-Check Time Seen by Provider: 08:07 Travel History International Travel<30 days: No Contact w/Intl Traveler<30days: No Traveled to known affect area: No History of Present Illness HPI 82-year-old male presents to the emergency department requesting suture removal from his right eyebrow. Sutures were placed on July 07. Denies drainage from the wound site. Says he is taking antibiotics. Denies fever, vomiting. Symptoms are mild in severity. No known aggravating or relieving factors. Has no other medical complaints. No other modifying factors or associated signs and symptoms. PFSH Past Medical History Anxiety: No Depression: Yes Cancer: Yes Cardiovascular Problems: Yes High Cholesterol: No Chest Pain: No Congestive Heart Failure: No Diabetes: Yes Genitourinary: No Immune Disorder: No Musculoskeletal: No Neurologic: No Reproductive: No Respiratory: No Past Surgical History Cardiac Surgery: Yes Social History Alcohol Use: No Tobacco Use: No Substance Use: No Allergies-Medications (Allergen,Severity, Reaction): Coded Allergies: No Known Allergies (Unverified , 07/12/17) Reported Meds & Prescriptions Reported Meds & Active Scripts Active Aspirin DR (Aspirin) 81 Mg Tabdr 81 Mg PO DAILY Coreg (Carvedilol) 3.125 Mg Tab 3.125 Mg PO Q12HR Check blood pressure every morning, do not take this medication if BP less than 110 Reported Glimepiride 1 Mg Tab 0.5 Mg PO DAILY Take with breakfast or first main meal Tamsulosin (Tamsulosin HCl) 0.4 Mg Cap 0.4 Mg PO HS Metformin (Metformin HCl) 500 Mg Tab 500 Mg PO TID Review of Systems Except as stated in HPI: all other systems reviewed are Neg Physical Exam Narrative GENERAL: Well-nourished, well-developed elderly, male patient, in no acute distress SKIN: Warm and dry. Right eyebrow with wound that is well approximated and sutures intact; without erythema, edema, drainage. No signs of infection. HEAD: Atraumatic. Normocephalic. EYES: Pupils equal and round. No scleral icterus. No injection or drainage. ENT: Mucosa pink and moist. Airway patent. NECK: Trachea midline. CARDIOVASCULAR: Regular rate. RESPIRATORY: No accessory muscle use. GASTROINTESTINAL: Flat. MUSCULOSKELETAL: No obvious deformities. No clubbing. No cyanosis. No edema. NEUROLOGICAL: Awake and alert. Oriented 3. No obvious cranial nerve deficits. Motor grossly within normal limits. Normal speech. PSYCHIATRIC: Appropriate mood and affect; insight and judgment normal. Data Data Last Documented VS Vital Signs Date Time Temp Pulse Resp B/P (MAP) Pulse Ox O2 Delivery O2 Flow Rate FiO2 07/12/17 07:50 98.1 91 20 156/70 (98) 100 Orders Orders Ed Discharge Order (07/12/17 08:21) MDM Medical Decision Making Medical Screen Exam Complete: Yes Emergency Medical Condition: Yes Medical Record Reviewed: Yes Differential Diagnosis Encounter for suture removal, wound recheck, medical clearance Narrative Course 82-year-old male presents for suture removal of the right eyebrow. Well approximated and no signs of infection. Sutures removed. Patient tolerated well. Instructed patient to follow up with primary care provider. Patient verbalizes understanding and agreement with treatment plan. Patient is medically cleared and stable for discharge. Discussed reasons to return to the emergency department. Patient agrees with treatment plan. The patients vital signs are stable and the patient is stable for outpatient follow-up and treatment. Patient discharged home, stable and in no acute distress. Diagnosis Primary Impression: Encounter for removal of sutures Referrals: Primary Care Physician Patient Instructions: Care For Your Stitches (ED), General Instructions Additional Instructions: Apply Vaseline or Aquaphor and keep the wound moist for continued healing Follow-up with primary care provider Return to the emergency department immediately with worsening of symptoms Med/Other Pt SpecificInfo: No Change to Meds, No Meds Exist/No RX given Disposition: 01 DISCHARGE HOME Condition: Stable Kristen Charles Jul 12, 2017 08:21
== END 2017-07-12 08:37 | disposition home or self-care (01) ==
LOC: NEPD 07:47
DX: Z48.02 Encounter for removal of sutures (principal); F32.9 Major depressive disorder, single episode, unspecified; E11.9 Type 2 diabetes mellitus without complications; Z79.82 Long term (current) use of aspirin; Z79.899 Other long term (current) drug therapy
CPT/HCPCS: 99281

== ENCOUNTER 2017-08-20 06:22 | Inpatient (IN) | payer MEDICARE, BC, OTHER ==
[2017-08-20] VITALS (9 sets, daily range): BP systolic 111–126; BP diastolic 54–58; PULSE 77–104; RESP 16–32; TEMP 98.4–100; O2SAT 90–98
[~2017-08-20] VITALS: Ht 170.2 cm; Wt 63.2 kg
[~2017-08-20 06:22] MED LIST changes: -Mupirocin 2% Oint TOPICAL
[2017-08-20] MEDS ORDERED: ACETAMINOPHEN 325 MG TAB PO ONE (06:45)
--- NOTE | 2017-08-20 06:58 | RADRPT ---
EXAM DATE/TIME: 08/20/2017 06:42 [facility] COMPARISON: CHEST SINGLE AP, July 07, 2017, 17:56. INDICATIONS : Chest pain, diffculty breathing post fall today MEDICAL HISTORY : Cardiovascular disease. Diabetes mellitus type 2. SURGICAL HISTORY : None. ENCOUNTER: Initial ACUITY: 1 day PAIN SCORE: 5/10 LOCATION: Bilateral chest FINDINGS: There is left suprahilar infiltrate, contusion or mass. The right lung is stable and clear. No signif icant effusion suspected. Cardiac contours are stable and satisfactory. CONCLUSION: Left suprahilar parenchymal opacity. Zachary Tracy MD on August 20, 2017 at 6:54 Board Certified Radiologist. This report was verified electronically.
[2017-08-20 07:06] LABS: AUTOMATED NEUTROPHIL # 9.6 TH/MM3 (1.8-7.7); BASOPHIL % 0.3 % (0.0-2.0); EOSINOPHIL # 0.1 TH/MM3 (0-0.4); EOSINOPHIL % 0.5 % (0.0-4.0); HEMATOCRIT 24.6 % (39.0-51.0); HEMOGLOBIN 8.5 GM/DL (13.0-17.0); LYMPH % 4.5 % (9.0-44.0); LYMPHOCYTE # 0.5 TH/MM3 (1.0-4.8); MEAN CELL VOLUME 88.8 FL (80.0-100.0); MEAN CORPUSCULAR HEMOGLOBIN 30.7 PG (27.0-34.0); MEAN CORPUSCULAR HGB CONC 34.6 % (32.0-36.0); MEAN PLATELET VOLUME 7.4 FL (7.0-11.0); MONO % 7.2 % (0.0-8.0); MONOCYTE # 0.8 TH/MM3 (0-0.9); NEUT % 87.5 % (16.0-70.0); PLATELET COUNT 198 TH/MM3 (150-450); RED BLOOD COUNT 2.77 MIL/MM3 (4.50-5.90); RED CELL DISTRIBUTION WIDTH 14.3 % (11.6-17.2); WHITE BLOOD COUNT 10.9 TH/MM3 (4.0-11.0)
[2017-08-20 07:15] LABS: BILIRUBIN, URINE NEG (NEG); BLOOD, URINE SMALL (NEG); GLUCOSE,URINE NEG (NEG); KETONE, URINE NEG (NEG); NITRITE,URINE NEG (NEG); URINE COLOR YELLOW (YELLW/STRAW); URINE LEUKOCYTE ESTERASE NEG (NEG)
[2017-08-20 07:23] LABS: HYALINE CAST, URINE 2 /lpf (RARE); MUCUS URINE FEW /lpf (OCC); SQUAMOUS EPITHELIAL CELL URINE <1 /hpf (0-5)
[2017-08-20 07:24] LABS: ALBUMIN 3.3 GM/DL (3.4-5.0); ALT (GPT) 14 U/L (12-78); AST (GOT) 13 U/L (15-37); BICARBONATE 26.6 MEQ/L (21.0-32.0); BLOOD UREA NITROGEN 25 MG/DL (7-18); CALCIUM 8.1 MG/DL (8.5-10.1); CHLORIDE 106 MEQ/L (98-107); GLOMERULAR FILTRATION RATE 45 ML/MIN (>89); GLUCOSE,RANDOM 175 MG/DL (74-106); SODIUM (NA) 141 MEQ/L (136-145)
[2017-08-20 07:27] LABS: ALKALINE PHOSPHATASE 63 U/L (45-117); TOTAL BILIRUBIN ADULT 0.8 MG/DL (0.2-1.0); TOTAL PROTEIN 6.8 GM/DL (6.4-8.2)
--- NOTE | 2017-08-20 07:32 | PD ---
HPI Chief Complaint: Complaint Time Seen by Provider: 07:26 Travel History International Travel<30 days: No Contact w/Intl Traveler<30days: No Traveled to known affect area: No History of Present Illness HPI 82-year-old male patient with history of diabetes, presents to the ER today brought in by his daughter because he apparently fell while getting into bed in the dark hitting the back of his head. He apparently he was lodged between the bed and the drawer, and he had to be helped up by daughter's . He is not sure whether he lost consciousness. He complains of neck pain, and back pains, but denies any other injuries. He is a poor historian and is unclear whether he is a reliable historian. Daughter states that he has been running low-grade fevers, urinating more. Modifying Factors: None Associated Signs & Symptoms: Fall, possible head injury, possible urinary symptoms, fevers Risk Factors: Recent UTIs PFSH Past Medical History Anxiety: No Depression: Yes Cancer: Yes Cardiovascular Problems: Yes High Cholesterol: No Chest Pain: No Congestive Heart Failure: No Diabetes: Yes Patient Takes Glucophage: Yes Genitourinary: No Immune Disorder: No Musculoskeletal: No Neurologic: No Reproductive: No Respiratory: No Influenza Vaccination: Yes Past Surgical History Cardiac Surgery: Yes Social History Alcohol Use: No Tobacco Use: No Substance Use: No Allergies-Medications (Allergen,Severity, Reaction): Coded Allergies: No Known Allergies (Unverified , 08/20/17) Reported Meds & Prescriptions Reported Meds & Active Scripts Active Aspirin DR (Aspirin) 81 Mg Tabdr 81 Mg PO DAILY Coreg (Carvedilol) 3.125 Mg Tab 3.125 Mg PO Q12HR Check blood pressure every morning, do not take this medication if BP less than 110 Reported Glimepiride 1 Mg Tab 0.5 Mg PO DAILY Take with breakfast or first main meal Tamsulosin (Tamsulosin HCl) 0.4 Mg Cap 0.4 Mg PO HS Metformin (Metformin HCl) 500 Mg Tab 500 Mg PO TID Review of Systems ROS Limitations: Poor Historian Except as stated in HPI: all other systems reviewed are Neg Physical Exam Narrative GENERAL: Well-developed elderly. Awake and oriented 3. Very hard of hearing. Male patient currently in mild distress SKIN: Focused skin assessment warm/dry. HEAD: Atraumatic. Normocephalic. EYES: Pupils equal and round. No scleral icterus. No injection or drainage. ENT: No nasal bleeding or discharge. Mucous membranes pink and moist. NECK: Trachea midline. No JVD. CARDIOVASCULAR: Regular rate and rhythm. No murmur appreciated. RESPIRATORY: No accessory muscle use. Clear to auscultation. Breath sounds equal bilaterally. GASTROINTESTINAL: Abdomen soft, non-tender, nondistended. Hepatic and splenic margins not palpable. MUSCULOSKELETAL: No obvious deformities. No clubbing. No cyanosis. No edema. NEUROLOGICAL: Awake and alert. No obvious cranial nerve deficits. Motor grossly within normal limits. Normal speech. PSYCHIATRIC: Appropriate mood and affect; insight and judgment normal. Data Data Last Documented VS Vital Signs Date Time Temp Pulse Resp B/P (MAP) Pulse Ox O2 Delivery O2 Flow Rate FiO2 08/20/17 06:29 100.0 103 18 126/58 (80) 97 Orders Orders Complete Blood Count With Diff (08/20/17 06:38) Comprehensive Metabolic Panel (08/20/17 06:38) Lipase (08/20/17 06:38) Urinalysis - C+S If Indicated (08/20/17 06:38) Chest, Single Ap (08/20/17 06:38) Acetaminophen (Tylenol) (08/20/17 06:45) Ct Brain W/O Iv Contrast(Rout) (08/20/17 07:26) Ct Cerv Spine W/O Contrast (08/20/17 07:26) Apply Cervical Collar (08/20/17 07:33) Admit Order (Ed Use Only) (08/20/17 08:47) Labs Laboratory Tests Test 08/20/17 06:45 08/20/17 06:55 White Blood Count 10.9 TH/MM3 Red Blood Count 2.77 MIL/MM3 Hemoglobin 8.5 GM/DL Hematocrit 24.6 % Mean Corpuscular Volume 88.8 FL Mean Corpuscular Hemoglobin 30.7 PG Mean Corpuscular Hemoglobin Concent 34.6 % Red Cell Distribution Width 14.3 % Platelet Count 198 TH/MM3 Mean Platelet Volume 7.4 FL Neutrophils (%) (Auto) 87.5 % Lymphocytes (%) (Auto) 4.5 % Monocytes (%) (Auto) 7.2 % Eosinophils (%) (Auto) 0.5 % Basophils (%) (Auto) 0.3 % Neutrophils # (Auto) 9.6 TH/MM3 Lymphocytes # (Auto) 0.5 TH/MM3 Monocytes # (Auto) 0.8 TH/MM3 Eosinophils # (Auto) 0.1 TH/MM3 Basophils # (Auto) 0.0 TH/MM3 CBC Comment DIFF FINAL Differential Comment Blood Urea Nitrogen 25 MG/DL Creatinine 1.50 MG/DL Random Glucose 175 MG/DL Total Protein 6.8 GM/DL Albumin 3.3 GM/DL Calcium Level 8.1 MG/DL Alkaline Phosphatase 63 U/L Aspartate Amino Transf (AST/SGOT) 13 U/L Alanine Aminotransferase (ALT/SGPT) 14 U/L Total Bilirubin 0.8 MG/DL Sodium Level 141 MEQ/L Potassium Level 3.9 MEQ/L Chloride Level 106 MEQ/L Carbon Dioxide Level 26.6 MEQ/L Anion Gap 8 MEQ/L Estimat Glomerular Filtration Rate 45 ML/MIN Lipase 58 U/L Urine Color YELLOW Urine Turbidity CLEAR Urine pH 6.0 Urine Specific [place] 1.015 Urine Protein 30 mg/dL Urine Glucose (UA) NEG mg/dL Urine Ketones NEG mg/dL Urine Occult Blood SMALL Urine Nitrite NEG Urine Bilirubin NEG Urine Urobilinogen 1.0 MG/DL Urine Leukocyte Esterase NEG Urine RBC 2 /hpf Urine WBC 1 /hpf Urine Squamous Epithelial Cells <1 /hpf Urine Hyaline Casts 2 /lpf Urine Mucus FEW /lpf Microscopic Urinalysis Comment CULT NOT INDICATED MDM Medical Decision Making Medical Screen Exam Complete: Yes Emergency Medical Condition: Yes Medical Record Reviewed: Yes Interpretation(s) Laboratory Tests Test 08/20/17 06:45 08/20/17 06:55 Red Blood Count 2.77 MIL/MM3 (4.50-5.90) Hemoglobin 8.5 GM/DL (13.0-17.0) Hematocrit 24.6 % (39.0-51.0) Neutrophils (%) (Auto) 87.5 % (16.0-70.0) Lymphocytes (%) (Auto) 4.5 % (9.0-44.0) Neutrophils # (Auto) 9.6 TH/MM3 (1.8-7.7) Lymphocytes # (Auto) 0.5 TH/MM3 (1.0-4.8) Blood Urea Nitrogen 25 MG/DL (7-18) Creatinine 1.50 MG/DL (0.60-1.30) Random Glucose 175 MG/DL (74-106) Albumin 3.3 GM/DL (3.4-5.0) Calcium Level 8.1 MG/DL (8.5-10.1) Aspartate Amino Transf (AST/SGOT) 13 U/L (15-37) Estimat Glomerular Filtration Rate 45 ML/MIN (>89) Lipase 58 U/L (73-393) Urine Protein 30 mg/dL (NEG-TRACE) Urine Mucus FEW /lpf (OCC) Last [address] 08/20/17725 Signed Impressions: Service Date/Time: Sunday, August 20, 2017 07:36 - CONCLUSION: 1. There is an acute left frontal subdural hematoma measuring up to 7 mm in maximal thickness. There is minimal local mass effect without midline shift. No fracture is present. 2. Chronic findings include mild generalized atrophy, chronic white matter changes, and old bilateral lacunaes. Zachary Minaya MD Cervical Spine CT 08/20/17725 Signed Impressions: Service Date/Time: Sunday, August 20, 2017 07:36 - CONCLUSION: 1. No acute cervical spine abnormality is identified. 2. Stable degenerative changes, as above. Zachary Minaya MD Chest X-Ray 08/20/17637 Signed Impressions: Service Date/Time: Sunday, August 20, 2017 06:42 - CONCLUSION: Left suprahilar parenchymal opacity. Zachary Tracy MD Differential Diagnosis Contusions versus intracranial injuries versus UTI versus sepsis Narrative Course Patient is afebrile in the ER. UA did not show any signs of UTI. Lab work was fairly unremarkable. CT does show signs of a 7 mm subdural without midline shift. Case was discussed with Dr. Diaz who would like the patient to be admitted to ICU for further observation. I have discussed findings with the patient's family and they state understanding as well. Aggregate critical care time was 30 minutes. Time to perform other separately billable procedures was not included in the critical care time. My time did not include minutes spent treating any other patients simultaneously or on activities that did not directly contribute to the patient's treatment. The services I provided to this patient were to treat and/or prevent clinically significant deterioration that could result in: Worsening ICH, mass-effect, herniation, I provided critical care services requiring my management, as noted below: Chart data review, documentation time, medication orders and management, vital sign assessments/reviewing monitor data, ordering and reviewing lab tests, ordering and interpreting/reviewing x-rays and diagnostic studies, care of the patient and discussion of the patient with the admitting physicians. Diagnosis Primary Impression: Subdural hematoma Admitting Information Admitting Physician Requests: Admit Ish Wyatt MD August 20, 2017 07:32
--- NOTE | 2017-08-20 08:04 | RADRPT ---
EXAM DATE/TIME: 08/20/2017 07:36 [facility] COMPARISON: CT BRAIN W/O CONTRAST, July 07, 2017, 9:56. INDICATIONS : Trauma, fall last night. RADIATION DOSE: 56.35 CTDIvol (mGy) MEDICAL HISTORY : Cardiovascular disease. diabetes SURGICAL HISTORY : None. ENCOUNTER: Initial ACUITY: 1 day PAIN SCALE: 3/10 LOCATION: Bilateral head TECHNIQUE: Multiple contiguous axial images were obtained of the head. Using automated exposure control and adj ustment of the mA and/or kV according to patient size, radiation dose was kept as low as reasonably a chievable to obtain optimal diagnostic quality images. DICOM format image data is available electro nically for review and comparison. FINDINGS: CEREBRUM: There is mild generalized atrophy. Ventricles are normal. There is periventricular white matter low-a ttenuation, stable from the prior study with stable bilateral in the basal ganglia region. There is a new left frontal subdural hematoma measuring 7 mm in maximal thickness. Minimal local mass effect is present but there is no midline shift. POSTERIOR FOSSA: The cerebellum and brainstem are intact. The 4th ventricle is midline. The cerebellopontine angle i s unremarkable. EXTRACRANIAL: There is mild mucoperiosteal thickening within the left maxillary sinus. SKULL: The calvaria is intact. No evidence of skull fracture. CONCLUSION: 1. There is an acute left frontal subdural hematoma measuring up to 7 mm in maximal thickness. There is minimal local mass effect without midline shift. No fracture is present. 2. Chronic findings include mild generalized atrophy, chronic white matter changes, and old bilateral lacunaes. Zachary Minaya MD on August 20, 2017 at 7:57 Board Certified Radiologist. This report was verified electronically.
--- NOTE | 2017-08-20 08:09 | RADRPT ---
EXAM DATE/TIME: 08/20/2017 07:36 [facility] COMPARISON: CT CERVICAL SPINE W/O CONTRAST, July 07, 2017, 9:56. INDICATIONS : Trauma, fall last night. RADIATION DOSE: 18.33 CTDIvol (mGy) MEDICAL HISTORY : Cardiovascular disease. diabetes SURGICAL HISTORY : None. ENCOUNTER: Initial ACUITY: 1 day PAIN SCALE: 7/10 LOCATION: Bilateral neck TECHNIQUE: Volumetric scanning of the cervical spine was performed. Multiplanar reconstructions in the sagittal, coronal and oblique axial planes were performed. Using automated exposure control and adjustment o f the mA and/or kV according to patient size, radiation dose was kept as low as reasonably achievable to obtain optimal diagnostic quality images. DICOM format image data is available electronically f or review and comparison. FINDINGS: There is normal sagittal spine alignment of the cervical spine. Stable minimal anterolisthesis is pre sent at C7 on T1. The atlantoaxial relationship is within normal limits. There is no prevertebral sof t tissue swelling present. No fracture or dislocation is identified. There are stable large bulky end plate osteophytes anteriorly. Degenerative disc disease is present at C5-C6 and C6-C7. Facet arthrosi s is present at multiple levels. Posterior disc osteophyte complex is present at C3-C4, C5-C6, and C6 -C7. There is a stable 5 mm left thyroid nodule. Otherwise, the visualized portions of the posterior fossa , paraspinous soft tissues, and upper lung zones demonstrate no acute abnormality. CONCLUSION: 1. No acute cervical spine abnormality is identified. 2. Stable degenerative changes, as above. Zachary Minaya MD on August 20, 2017 at 8:03 Board Certified Radiologist. This report was verified electronically.
[2017-08-20] MEDS ORDERED: ALUMINUM/MAGNESIUM/SIMETH 30 ML CUP PO PRN (10:15)
[2017-08-20] MEDS ORDERED: SODIUM CHLORIDE 0.9% FLUSH 10 ML FLUSH IV FLUSH PRN (10:15)
[2017-08-20] MEDS ORDERED: BISACODYL 10 MG SUPP RECTAL PRN (10:15)
[2017-08-20] MEDS ORDERED: niCARdipine INJ 25 MG in SODIUM CHLOR 0.9% 250 ML INJ 240 ML IV PRN (10:15)
[2017-08-20] MEDS ORDERED: ACETAMINOPHEN/HYDROcodone 325 MG/10 MG TAB PO PRN ×2 (10:15)
[2017-08-20] MEDS ORDERED: MAGNESIUM SULFATE INJ 2 GM in SODIUM CHLORIDE 0.9% INJ 100 ML IV PRN (10:15)
[2017-08-20] MEDS ORDERED: GLUCAGON 1 MG/ML VIAL OTHER PRN (10:15)
[2017-08-20] MEDS ORDERED: MAGNESIUM HYDROXIDE SUSP 30 ML CUP PO PRN (10:15)
[2017-08-20] MEDS ORDERED: LABETALOL HCL 100 MG/20 ML VIAL IV PUSH PRN (10:15)
[2017-08-20] MEDS ORDERED: MORPHINE SULFATE 2 MG/ML SYRINGE IV PUSH PRN (10:15)
[2017-08-20] MEDS ORDERED: CALCIUM GLUCONATE INJ 1 GM in SODIUM CHLORIDE 0.9% INJ 100 ML IV PRN (10:15)
[2017-08-20] MEDS ORDERED: cloNIDine HCL 0.1 MG TAB PO PRN (10:15)
[2017-08-20] MEDS ORDERED: POTASSIUM CHLOR 20 MEQ PREMIX 100 ML IV PRN (10:15)
[2017-08-20] MEDS ORDERED: LORazepam 2 MG/ML VIAL IV PUSH PRN (10:15)
[2017-08-20] MEDS ORDERED: DEXTROSE 50% IN WATER 50 ML VIAL(D50) IV PUSH PRN (10:15)
[2017-08-20] MEDS ORDERED: LACTULOSE SYRUP 20 GM/30 ML CUP PO PRN (10:15)
[2017-08-20] MEDS ORDERED: MENTHOL LOZENGE BUCCAL PRN (10:15)
[2017-08-20] MEDS ORDERED: ZOLPIDEM TARTRATE 5 MG TAB PO PRN (10:15)
[2017-08-20] MEDS ORDERED: ACETAMINOPHEN 325 MG TAB PO PRN (10:15)
[2017-08-20] MEDS ORDERED: RESP: ALBUTEROL 2.5 MG/3 ML NEB (PRN) NEB (10:15)
[2017-08-20] MEDS ORDERED: SENNOSIDES 8.6 MG TAB PO PRN (10:15)
--- NOTE | 2017-08-20 11:04 | MB ---
cc: Edi Gandara MD DATE: 08/20/2017 HISTORY OF PRESENT ILLNESS: Zachary is a very pleasant 82-year-old gentleman with a history of nonischemic cardiomyopathy, coronary artery disease, moderate MR, previous fall. The patient underwent direct PCI with bare metal stent with a 4.0/15 Integrity stent approximately 2-3 weeks ago. Apparently, he fell out of bed yesterday, did not have loss of consciousness, although actually hit his head. He was lodged between the bed and the drawer. The patient presented to the ER complaining of neck pain, back pains. Otherwise denies chest pain, fevers, chills, cough, GI or bleeding, PND, orthopnea or dizziness. His daughter notes he has been having low-grade fevers and frequent urination recently. PAST MEDICAL HISTORY: Includes depression, cancer, diabetes. SOCIAL HISTORY: Denies tobacco or alcohol use. ALLERGIES: NONE. MEDICATIONS PRIOR TO ADMISSION: 1. Aspirin. 2. Coreg 3.125. 3. Glimepiride. 4. Tamsulosin. 5. Metformin. MEDICATIONS IN THE HOSPITAL 1. Pantoprazole 40 mg daily. 2 Carvedilol 3.125 q. 12 hours. 3 Tamsulosin 0.4 mg at bedtime. 4 Keppra 500 mg q.12 hours. PHYSICAL EXAMINATION: VITAL SIGNS: Blood pressure 126/58, pulse 103, temperature 100.0, respiratory rate 18. GENERAL: He is alert and oriented x 2-3, in no acute distress. NECK: Supple. No JVD. No bruit. HEART: S1, S2. No murmurs, rubs or gallops. LUNGS: Clear to auscultation bilaterally. ABDOMEN: Soft, nontender, nondistended with positive bowel sounds. EXTREMITIES: No lower extremity edema. LABORATORY DATA: White count 10.9, hemoglobin 8.5, hematocrit 24.6, platelet count 198. Sodium 141, potassium 3.9, chloride 106, bicarbonate 26.6, BUN 25, creatinine 1.50, glucose 175. AST 13, ALT 14. Chest X-ray: Left suprahilar parenchymal opacity. Head CT: There is an acute left frontal subdural hematoma measuring up to 7 mm in maximal thickness. There is minimal local mass effect without midline shift, no fractures present. Chronic findings include mild generalized atrophy, chronic white matter changes and old bilateral "lacune." Cervical Spine CT: No acute cervical spine abnormality is identified. Stable degenerative changes as above. EKG is not available in the computer. DIAGNOSES: 1. Subdural hematoma. 2. Anemia. 3. Chronic renal insufficiency. 4. Acute renal failure. 5. Dementia. 6. Diabetes mellitus. 7. Cardiomyopathy. 8. Coronary artery disease. 9. Mitral valve regurgitation. 10. Recurrent falls. DISCUSSION: At this point in time, anticoagulation will need to be held. Fortunately, the patient has a 4.0 mm stent in the right coronary artery that I believe I placed more than 2 weeks ago. His aspirin and Plavix will need to be held until he is cleared by Neurology to resume it. Otherwise, he is asymptomatic. Dr. Diaz has been consulted. Recommend telemetry monitoring and we will continue to follow. MD SNEHA Kelly/PRAKASH , 10:32 AM , 11:04 AM
[2017-08-20 11:15] LABS: INTERNATIONAL NORMALIZED RATIO 1.2 RATIO; PROTHROMBIN TIME - PATIENT 11.7 SEC (9.8-11.6)
--- NOTE | 2017-08-20 12:59 | HHI.HP ---
History of Present Illness Service Neurosurgery Primary Care Physician Edi Gandara MD Admission Diagnosis Subdural hemorrhage Diagnoses: History of Present Illness 82-year-old gentleman presents to the ER today brought in by his daughter because he apparently fell while getting into bed in the dark hitting the back of his head. He apparently he was lodged between the bed and the drawer, and he had to be helped up by daughter's . He is not sure whether he lost consciousness. He complains of back pain, but denies any other injuries. He is a poor historian with very dysarthric speech and heavy [place] accent. He relates that he has had passing out spells in the past with falls and frequent urinary urgency but no bowel control issues. Reportedly a few weeks ago he had coronary stenting and is on aspirin and Plavix therapy. CT scan of the head obtained reveals a left frontal 7 mm subdural hemorrhage with mild mass-effect and no midline shift. CT of the cervical spine is negative for any fractures with degenerative changes noted. Review of Systems ROS Limitations: Altered Mental Status, Poor Historian Constitutional: DENIES: Diaphoretic episodes, Fatigue, Fever, Weight gain, Weight loss, Chills, Dizziness, Change in appetite, Night Sweats Endocrine: DENIES: Heat/cold intolerance, Polydipsia, Polyuria, Polyphagia Eyes: DENIES: Blurred vision, Diplopia, Eye inflammation, Eye pain, Vision loss , Photosensitivity, Double Vision Ears, nose, mouth, throat: DENIES: Tinnitus, Hearing loss, Vertigo, Nasal discharge, Oral lesions, Throat pain, Hoarseness, Ear Pain, Running Nose, Epistaxis, Sinus Pain, Toothache, Odynophagia Respiratory: DENIES: Apneas, Cough, Snoring, Wheezing, Hemoptysis, Sputum production, Shortness of breath Cardiovascular: DENIES: Chest pain, Palpitations, Syncope, Dyspnea on Exertion , PND, Lower Extremity Edema, Orthopnea, Claudication Gastrointestinal: DENIES: Abdominal pain, Black stools, Bloody stools, Constipation, Diarrhea, Nausea, Vomiting, Difficulty Swallowing, Anorexia Genitourinary: DENIES: Sexual dysfunction, Urinary frequency, Urinary incontinence, Urgency, Hematuria, Dysuria, Nocturia, Penile Discharge, Testicular Pain, Testicular Swelling Musculoskeletal: COMPLAINS OF: Back pain, DENIES: Joint pain, Muscle aches, Stiffness, Joint Swelling, Neck pain Integumentary: DENIES: Abnormal pigmentation, Nail changes, Pruritus, Rash Hematologic/lymphatic: DENIES: Bruising, Lymphadenopathy Immunologic/allergic: DENIES: Eczema, Urticaria Neurologic: COMPLAINS OF: Abnormal gait, Speech Problems, Poor Balance, DENIES : Headache, Localized weakness, Paresthesias, Seizures, Tremor Psychiatric: DENIES: Anxiety, Confusion, Mood changes, Depression, Hallucinations, Agitation, Suicidal Ideation, Homicidal Ideation, Delusions Except as stated in HPI: all other systems reviewed are Neg Past Family Social History Allergies: Coded Allergies: No Known Allergies (Unverified , 08/20/17) Past Medical History Coronary artery disease status post stenting a few weeks ago, cardiomyopathy, history of syncopal episodes with falls, diabetes mellitus, enlarged prostate Reported Medications Aspirin DR (Aspirin) 81 Mg Tabdr 81 Mg PO DAILY Coreg (Carvedilol) 3.125 Mg Tab 3.125 Mg PO Q12HR Check blood pressure every morning, do not take this medication if BP less than 110 Glimepiride 1 Mg Tab 0.5 Mg PO DAILY Take with breakfast or first main meal Tamsulosin (Tamsulosin HCl) 0.4 Mg Cap 0.4 Mg PO HS Metformin (Metformin HCl) 500 Mg Tab 500 Mg PO TID Active Ordered Medications Current Medications Medications (Trade) Dose Ordered Sig/Aki Route PRN Reason Start Time Stop Time Status Last Admin Dose Admin Dextrose (D50w (Vial) Inj) 50 ml UNSCH PRN IV PUSH HYPOGLYCEMIA-SEE COMMENTS 08/20/17 10:15 Glucagon (Glucagon Inj) 1 mg UNSCH PRN OTHER HYPOGLYCEMIA-SEE COMMENTS 08/20/17 10:15 Insulin Human Regular (NovoLIN R SUPPLEMENTAL SCALE) 1 ACHS SLIDING SCALE SQ 08/20/17 12:00 Sodium Chloride (NS Flush) 2 ml UNSCH PRN IV FLUSH FLUSH AFTER USING IV ACCESS 08/20/17 10:15 Sodium Chloride (NS Flush) 2 ml BID IV FLUSH 08/20/17 21:00 Levetriacetam (Keppra) 500 mg Q12H PO 08/20/17 11:00 Lorazepam (Ativan Inj) 1 mg Q1H PRN IV PUSH SEIZURES 08/20/17 10:15 Al Hydrox/Mg Hydrox/Simethicone (Mag-Al Plus Susp Liq) 30 ml Q6H PRN PO DYSPEPSIA 08/20/17 10:15 Pantoprazole Sodium (Protonix) 40 mg DAILY PO 08/21/17 09:00 Calcium Gluconate 1 gm/Sodium Chloride 110 ml @ 110 mls/hr UNSCH PRN IV SEE LABEL COMMENTS 08/20/17 10:15 Potassium Chloride 100 ml @ 50 mls/hr UNSCH PRN IV POTASSIUM LESS THAN 4 08/20/17 10:15 Magnesium Sulfate 2 gm/Sodium Chloride 104 ml @ 100 mls/hr UNSCH PRN IV MAGNESIUM LESS THAN 2 08/20/17 10:15 Acetaminophen/ Hydrocodone Bitart ([place] 10-325 Mg) 1 tab Q4H PRN PO PAIN SCALE 1 TO 5 08/20/17 10:15 Acetaminophen/ Hydrocodone Bitart ([place] 10-325 Mg) 2 tab Q4H PRN PO PAIN SCALE 6 TO 10 08/20/17 10:15 Morphine Sulfate (Morphine Inj) 2 mg Q2H PRN IV PUSH breakthrough pain>6 08/20/17 10:15 Labetalol HCl (Trandate Inj) 10 mg Q1H PRN IV PUSH SYS BP GREATER THAN 170 MMHG 08/20/17 10:15 Clonidine (Catapres) 0.1 mg Q6H PRN PO SYS BP GREATER THAN 170 MMHG 08/20/17 10:15 Acetaminophen (Tylenol) 650 mg Q4H PRN PO TEMPERATURE > 101.5 F 08/20/17 10:15 Menthol ([place] Robin) 1 lozenge UNSCH PRN BUCCAL SORE THROAT 08/20/17 10:15 Zolpidem Tartrate (Ambien) 5 mg HS PRN PO INSOMNIA 08/20/17 10:15 Albuterol Sulfate (Albuterol Neb) 2.5 mg Q4HR NEB PRN NEB WHEEZING 08/20/17 10:15 Senna/Docusate Sodium (Martha-Colace) 1 tab BID PO 08/20/17 21:00 Magnesium Hydroxide (Milk Of Magnesia Liq) 30 ml Q12H PRN PO Mild constipation 08/20/17 10:15 Sennosides (Senokot) 17.2 mg Q12H PRN PO Moderate constipation 08/20/17 10:15 Bisacodyl (Dulcolax Supp) 10 mg DAILY PRN RECTAL SEVERE CONSITIPATION 08/20/17 10:15 Lactulose (Lactulose Liq) 30 ml DAILY PRN PO SEVERE CONSITIPATION 08/20/17 10:15 Nicardipine HCl 25 mg/Sodium Chloride 250 ml @ 50 mls/hr TITRATE PRN IV Blood pressure management 08/20/17 10:15 Carvedilol (Coreg) 3.125 mg Q12HR PO 08/20/17 21:00 Tamsulosin HCl (Flomax) 0.4 mg HS PO 08/20/17 21:00 Social History He is a former smoker with no alcohol history Physical Exam Vital Signs Vital Signs Date Time Temp Pulse Resp B/P (MAP) Pulse Ox O2 Delivery O2 Flow Rate FiO2 08/20/17 12:35 08/20/17 12:13 80 16 118/57 (77) 95 Room Air 08/20/17 11:00 98.8 08/20/17 06:29 100.0 103 18 126/58 (80) 97 Physical Exam GENERAL: This is a well-nourished, well-developed patient, in no apparent distress. SKIN: No rashes, ecchymoses or lesions. Cool and dry. HEAD: Atraumatic. Normocephalic. No temporal or scalp tenderness. EYES: Pupils equal round and reactive. Extraocular motions intact. No scleral icterus. No injection or drainage. ENT: Nose without bleeding, purulent drainage or septal hematoma. Throat without erythema, tonsillar hypertrophy or exudate. Uvula midline. Airway patent. NECK: Trachea midline. No JVD or lymphadenopathy. Supple, nontender, no meningeal signs. CARDIOVASCULAR: Regular rate and rhythm without murmurs, gallops, or rubs. RESPIRATORY: Clear to auscultation. Breath sounds equal bilaterally. No wheezes , rales, or rhonchi. GASTROINTESTINAL: Abdomen soft, non-tender, nondistended. No hepato-splenomegaly , or palpable masses. No guarding. MUSCULOSKELETAL: Extremities without clubbing, cyanosis, or edema. No joint tenderness, effusion, or edema noted. No calf tenderness. Negative Homans sign bilaterally. NEUROLOGICAL: Awake and alert but confused and oriented only to location and name but not the exact date. Cranial nerves II through XII intact. Motor and sensory grossly within normal limits. Speech is very dysarthric. Laboratory Laboratory Tests Test 08/20/17 06:45 08/20/17 06:55 08/20/17 10:45 08/20/17 12:30 White Blood Count 10.9 Red Blood Count 2.77 Hemoglobin 8.5 Hematocrit 24.6 Mean Corpuscular Volume 88.8 Mean Corpuscular Hemoglobin 30.7 Mean Corpuscular Hemoglobin Concent 34.6 Red Cell Distribution Width 14.3 Platelet Count 198 Mean Platelet Volume 7.4 Neutrophils (%) (Auto) 87.5 Lymphocytes (%) (Auto) 4.5 Monocytes (%) (Auto) 7.2 Eosinophils (%) (Auto) 0.5 Basophils (%) (Auto) 0.3 Neutrophils # (Auto) 9.6 Lymphocytes # (Auto) 0.5 Monocytes # (Auto) 0.8 Eosinophils # (Auto) 0.1 Basophils # (Auto) 0.0 CBC Comment DIFF FINAL Differential Comment Blood Urea Nitrogen 25 Creatinine 1.50 Random Glucose 175 Total Protein 6.8 Albumin 3.3 Calcium Level 8.1 Alkaline Phosphatase 63 Aspartate Amino Transf (AST/SGOT) 13 Alanine Aminotransferase (ALT/SGPT) 14 Total Bilirubin 0.8 Sodium Level 141 Potassium Level 3.9 Chloride Level 106 Carbon Dioxide Level 26.6 Anion Gap 8 Estimat Glomerular Filtration Rate 45 Lipase 58 Urine Color YELLOW Urine Turbidity CLEAR Urine pH 6.0 Urine Specific [place] 1.015 Urine Protein 30 Urine Glucose (UA) NEG Urine Ketones NEG Urine Occult Blood SMALL Urine Nitrite NEG Urine Bilirubin NEG Urine Urobilinogen 1.0 Urine Leukocyte Esterase NEG Urine RBC 2 Urine WBC 1 Urine Squamous Epithelial Cells <1 Urine Hyaline Casts 2 Urine Mucus FEW Microscopic Urinalysis Comment CULT NOT INDICATED Prothrombin Time 11.7 Prothromb Time International Ratio 1.2 Activated Partial Thromboplast Time 27.2 Result Diagram: 08/20/1745 08/20/1745 Imaging Last Impressions Head CT 08/20/17725 Signed Impressions: Service Date/Time: Sunday, August 20, 2017 07:36 - CONCLUSION: 1. There is an acute left frontal subdural hematoma measuring up to 7 mm in maximal thickness. There is minimal local mass effect without midline shift. No fracture is present. 2. Chronic findings include mild generalized atrophy, chronic white matter changes, and old bilateral lacunaes. Zachary Minaya MD Cervical Spine CT 08/20/17725 Signed Impressions: Service Date/Time: Sunday, August 20, 2017 07:36 - CONCLUSION: 1. No acute cervical spine abnormality is identified. 2. Stable degenerative changes, as above. Zachary Minaya MD Chest X-Ray 08/20/17 0638 Signed Impressions: Service Date/Time: Sunday, August 20, 2017 06:42 - CONCLUSION: Left suprahilar parenchymal opacity. MD Sarah Arias VTE Risk Assessment Capjie VTE Risk Assessment: Mod/High Risk (score >= 2) VTE Pharm Contraindication: Intracranial lesions Caprini Risk Assessment Model Point Value = 1 Point Value = 2 Point Value = 3 Point Value = 5 Age 41-60 Minor surgery BMI > 25 kg/m2 Swollen legs Varicose veins or History of unexplained or recurrent spontaneous Oral contraceptives or hormone replacement Sepsis (< 1 month) Serious lung disease, including pneumonia (< 1 month) Abnormal pulmonary function Acute myocardial infarction Congestive heart failure (< 1 month) History of inflammatory bowel disease Medical patient at bed rest Age 61-74 Arthroscopic surgery Major open surgery (> 45 min) Laparoscopic surgery (> 45 min) Malignancy Confined to bed (> 72 hours) Immobilizing plaster cast Central venous access Age >= 75 History of VTE Family history of VTE Factor V Leiden Prothrombin [id number] Lupus anticoagulant Anticardiolipin antibodies Elevated serum homocysteine Heparin-induced thrombocytopenia Other congenital or acquired thrombophilia Stroke (< 1 month) Elective arthroplasty Hip, pelvis, or leg fracture Acute spinal cord injury (< 1 month) Prophylaxis Regimen Total Risk Factor Score Risk Level Prophylaxis Regimen 0-1 Low Early ambulation 2 Moderate Order ONE of the following: *Sequential Compression Device (SCD) *Heparin 5000 units SQ BID 3-4 Higher Order ONE of the following medications: *Heparin 5000 units SQ TID *Enoxaparin/Lovenox 40 mg SQ daily (WT < 150 kg, CrCl > 30 mL/min) *Enoxaparin/Lovenox 30 mg SQ daily (WT < 150 kg, CrCl > 10-29 mL/min) *Enoxaparin/Lovenox 30 mg SQ BID (WT < 150 kg, CrCl > 30 mL/min) AND/OR *Sequential Compression Device (SCD) 5 or more Highest Order ONE of the following medications: *Heparin 5000 units SQ TID (Preferred with Epidurals) *Enoxaparin/Lovenox 40 mg SQ daily (WT < 150 kg, CrCl > 30 mL/min) *Enoxaparin/Lovenox 30 mg SQ daily (WT < 150 kg, CrCl > 10-29 mL/min) *Enoxaparin/Lovenox 30 mg SQ BID (WT < 150 kg, CrCl > 30 mL/min) AND *Sequential Compression Device (SCD) Assessment and Plan Assessment and Plan 1. Acute a left frontal small subdural hemorrhage with mild mass-effect and no midline shift after a fall. 2. Cardiomyopathy with history of coronary artery disease with recent coronary stent placement on aspirin and Plavix therapy. 3. [id number] diabetes mellitus. Patient will be admitted to the intensive care unit for close neurologic and hemodynamic monitoring. His aspirin and Plavix antiplatelet therapy will be withheld and Follow-up CT scan of the head obtained tomorrow morning to rule out any progression of his subdural hemorrhage. Mechanical DVT prophylaxis along with early seizure prophylaxis. Out of bed with physical therapy. Insulin sliding scale coverage for diabetes mellitus. consult nursing admin for assistance in his medical management. Sin Diaz MD August 20, 2017 12:59
--- NOTE | 2017-08-20 13:20 | PD.CONS ---
[facility] Service Critical Care Medicine Consult Requested By Dr. Diaz Reason for Consult s/p fall with acute subdural hemorrhage Primary Care Physician Edi Gandara MD History of Present Illness Patient is a is a 82-year-old gentleman with a history of type 2 diabetes, cardiomyopathy, coronary artery disease, moderate MR who recently underwent PCI with bare metal stent approximately 2-[address] Gandara. He was brought to the ER today after sustaining a fall while getting into bed, apparently hit the back of his head. He is not sure whether he lost consciousness, had no seizure. He has had history of falls in the past. CT scan of the head obtained revealed a left frontal 7 mm subdural hemorrhage with mild mass effect, no midline shift. CT of the cervical spine is negative for any fractures. Patient was admitted to Dr. Diaz's service to ICU, and critical care was consulted for assistance with management Evaluated the patient in the ICU, he gets intermittently confused but at this point he is following commands oriented to person place and time. CT scan was personally reviewed. I discussed with Dr. Diaz, and Dr. Gandara. According to Dr. Gandara ok to hold aspirin at this time until cleared by neurosurgery. Echo done on 07/07/17 showed LVEF 20-25%. diffuse global hypokinesis with distinct regional wall motion abnormalities. Moderate mitral valve regurgitation Review of Systems ROS Limitations: Other (as per [facility]) Past Family Social History Allergies: Coded Allergies: No Known Allergies (Unverified , 08/20/17) Past Medical History Coronary artery disease status post stenting a few weeks ago Cardiomyopathy Ef 20-25%, Mod MR on echo 07/07/17 Carotid stenosis Moderate MR Chronic kidney disease Diabetes mellitus BPH History of recurrent falls Past Surgical History Cardiac catheterization and PCI with mental stent approximately 3 weeks ago Reported Medications Aspirin DR (Aspirin) 81 Mg Tabdr 81 Mg PO DAILY Coreg (Carvedilol) 3.125 Mg Tab 3.125 Mg PO Q12HR Glimepiride 1 Mg Tab 0.5 Mg PO DAILY Tamsulosin (Tamsulosin HCl) 0.4 Mg Cap 0.4 Mg PO HS Metformin (Metformin HCl) 500 Mg Tab 500 Mg PO TID Active Ordered Medications Reviewed Family History Unable to obtain Social History Former smoker no alcohol use Physical Exam Vital Signs Vital Signs Date Time Temp Pulse Resp B/P (MAP) Pulse Ox O2 Delivery O2 Flow Rate FiO2 08/20/17 12:35 08/20/17 12:20 98.4 77 20 119/57 (77) 94 08/20/17 12:20 77 08/20/17 12:13 80 16 118/57 (77) 95 Room Air 08/20/17 11:00 98.8 08/20/17 06:29 100.0 103 18 126/58 (80) 97 Physical Exam GENERAL: Well-developed elderly. Awake and oriented 3. Did not appear in acute distress SKIN: Warm/dry. HEAD: Atraumatic. Normocephalic. EYES: Pupils equal and round. No scleral icterus. No injection or drainage. ENT: No nasal bleeding or discharge. NECK: Trachea midline. No JVD. CARDIOVASCULAR: Regular rate and rhythm. No murmur appreciated. RESPIRATORY: No accessory muscle use. Clear to auscultation. Breath sounds equal bilaterally. GASTROINTESTINAL: Abdomen soft, non-tender, nondistended. Hepatic and splenic margins not palpable. MUSCULOSKELETAL: No obvious deformities. No clubbing. No cyanosis. No edema. NEUROLOGICAL: Awake and alert. No obvious cranial nerve deficits. Motor grossly within normal Laboratory Laboratory Tests Test 08/20/17 06:45 08/20/17 06:55 08/20/17 10:45 08/20/17 12:30 White Blood Count 10.9 Red Blood Count 2.77 Hemoglobin 8.5 Hematocrit 24.6 Mean Corpuscular Volume 88.8 Mean Corpuscular Hemoglobin 30.7 Mean Corpuscular Hemoglobin Concent 34.6 Red Cell Distribution Width 14.3 Platelet Count 198 Mean Platelet Volume 7.4 Neutrophils (%) (Auto) 87.5 Lymphocytes (%) (Auto) 4.5 Monocytes (%) (Auto) 7.2 Eosinophils (%) (Auto) 0.5 Basophils (%) (Auto) 0.3 Neutrophils # (Auto) 9.6 Lymphocytes # (Auto) 0.5 Monocytes # (Auto) 0.8 Eosinophils # (Auto) 0.1 Basophils # (Auto) 0.0 CBC Comment DIFF FINAL Differential Comment Blood Urea Nitrogen 25 Creatinine 1.50 Random Glucose 175 Total Protein 6.8 Albumin 3.3 Calcium Level 8.1 Alkaline Phosphatase 63 Aspartate Amino Transf (AST/SGOT) 13 Alanine Aminotransferase (ALT/SGPT) 14 Total Bilirubin 0.8 Sodium Level 141 Potassium Level 3.9 Chloride Level 106 Carbon Dioxide Level 26.6 Anion Gap 8 Estimat Glomerular Filtration Rate 45 Lipase 58 Urine Color YELLOW Urine Turbidity CLEAR Urine pH 6.0 Urine Specific [place] 1.015 Urine Protein 30 Urine Glucose (UA) NEG Urine Ketones NEG Urine Occult Blood SMALL Urine Nitrite NEG Urine Bilirubin NEG Urine Urobilinogen 1.0 Urine Leukocyte Esterase NEG Urine RBC 2 Urine WBC 1 Urine Squamous Epithelial Cells <1 Urine Hyaline Casts 2 Urine Mucus FEW Microscopic Urinalysis Comment CULT NOT INDICATED Prothrombin Time 11.7 Prothromb Time International Ratio 1.2 Activated Partial Thromboplast Time 27.2 Result Diagram: 08/20/1764408/20/[address] of the head shows 7mm left frontal subdural hematoma Septic Shock Reassessment Septic shock perfusion: reassessment completed Assessment and Plan Assessment and Plan NEURO: Acute left frontal subdural hematoma with minimal mass-effect s/p Fall -CT of the head reviewed personally and discussed with Dr. Diaz -Follow-up CT scan per neurosurgery -Avoid hyponatremia -Keppra for seizure prophylaxis, Ativan prn for sz -No surgical intervention planned at this time RESP: -Nasal cannula oxygen if needed -Aggressive pulmonary toilet, incentive spirometry -DuoNeb every 6 hours scheduled and as needed CV: -History of recent PCI with bare-metal stent about 2-[address] Gandara -Okay with Dr. Gandara regarding holding aspirin , need neurosurgical clearance to resume -LVEF 20-25%, moderate MR on echo done 07/07/2017 -Gentle hydration -Continue Coreg. Use Cardene gtt as needed to keep SBP<150 GI: -Diet if cleared by neurosurgery, GI prophylaxis : -Monitor renal function closely. Place Cee catheter if needed ID: -Monitor for infection closely HEME: -Monitor CBC, CMP, coags -Hold all antiplatelet agents at this time ENDO: -Electrolyte replacement per protocol -Sliding scale insulin PROPH: -Bilateral lower extremity SCDs/ROQUE. Chemical DVT prophylaxis contraindicated. GI prophylaxis with famotidine LINES: -Utilize peripheral IVs, central line if needed Level 3 new consult [facility] consulted for medical management am Code Status Full Discussed Condition With Luther Diaz and Phillip Berger MD August 20, 2017 13:20
[2017-08-20] MEDS: levETIRAcetam 500 MG TAB PO SCH ×2 (13:23→22:49)
[2017-08-20] MEDS: INSULIN NovoLIN REGULAR SUPPLEMENTAL SCALE SQ SCH ×3 (13:46→21:00)
[2017-08-20] MEDS: RESP: ALBUTEROL 2.5 MG/IPRATROPIUM 0.5 MG NEB (SCH) NEB ×2 (16:43→21:04)
[2017-08-20] MEDS: DOCUSATE SODIUM 50 MG/SENNA 8.6 MG TAB PO SCH (21:56)
[2017-08-20] MEDS: SODIUM CHLORIDE 0.9% FLUSH 10 ML FLUSH IV FLUSH SCH (21:56)
[2017-08-20] MEDS: CARVEDILOL 3.125 MG TAB PO SCH (21:56)
[2017-08-20] MEDS: TAMSULOSIN HCL 0.4 MG CAP PO SCH (21:56)
[2017-08-21] VITALS (12 sets, daily range): BP systolic 102–122; BP diastolic 53–57; PULSE 78–95; RESP 15–21; TEMP 98.6–100.3; O2SAT 95–100
[2017-08-21] MEDS: RESP: ALBUTEROL 2.5 MG/IPRATROPIUM 0.5 MG NEB (SCH) NEB ×4 (04:00→22:59)
--- NOTE | 2017-08-21 07:01 | RADRPT ---
EXAM DATE/TIME: 08/21/2017 05:51 [place] COMPARISON: CT BRAIN W/O CONTRAST, August 20, 2017, 7:36. INDICATIONS : Follow up subdural. RADIATION DOSE: 56.35 CTDIvol (mGy) MEDICAL HISTORY : Cerebrovascular disease. Diabetes mellitus type 2. SURGICAL HISTORY : None. ENCOUNTER: Subsequent ACUITY: 1 day PAIN SCALE: Non-responsive LOCATION: cranial TECHNIQUE: Multiple contiguous axial images were obtained of the head. Using automated exposure control and adj ustment of the mA and/or kV according to patient size, radiation dose was kept as low as reasonably a chievable to obtain optimal diagnostic quality images. DICOM format image data is available electro nically for review and comparison. FINDINGS: Thin left frontal subdural hematoma is unchanged in thickness. No new acute findings are identified. Mild white matter hypodensity is unchanged. Small remote lacunar infarcts in the basal ganglia bilate rally. No evidence of intracranial mass. Nothing to suggest acute infarction. Mild mucosal thickening in the facial sinuses. CONCLUSION: Stable thin left frontal subdural hematoma Zachary Tracy MD on August 21, 2017 at 6:58 Board Certified Radiologist. This report was verified electronically.
--- NOTE | 2017-08-21 07:28 | HHI.NSPN ---
(Abel Vail) History Chief Complaint: SDH. Periods of confusion at night. (Abel Vail) Interval History 82-year-old gentleman presents to the ER today brought in by his daughter because he apparently fell while getting into bed in the dark hitting the back of his head. He apparently he was lodged between the bed and the drawer, and he had to be helped up by daughter's . He is not sure whether he lost consciousness. He complains of back pain, but denies any other injuries. He is a poor historian with very dysarthric speech and heavy [place] accent. He relates that he has had passing out spells in the past with falls and frequent urinary urgency but no bowel control issues. Reportedly a few weeks ago he had coronary stenting and is on aspirin and Plavix therapy. CT scan of the head obtained reveals a left frontal 7 mm subdural hemorrhage with mild mass-effect and no midline shift. CT of the cervical spine is negative for any fractures with degenerative changes noted. 08/21/17: Pt awakens to voice. He reportedly was up all night and is fatigued now. He nods his head he does not have any headaches, nausea or vomiting. He follows commands. (Abel Vail) System Review Comments Not able to obtain given current level of alertness. He reportedly was up all night. (Abel Vail) Exam Results Vital Signs Date Time Temp Pulse Resp B/P (MAP) Pulse Ox O2 Delivery O2 Flow Rate FiO2 08/21/17 06:00 92 08/21/17 04:00 100.0 15 105/53 (70) 96 08/20/17 19:00 Room Air 99 (Abel Vail) Physical Examination General: Pt awakens to voice and light stimulation. Eyes: Pupils 2mm bilaterally reactive bilaterally. Sclera anicteric. 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 Neuro: Pt awakens to voice and light stimulation. Pupils 2mm bilaterally reactive bilaterally. He follows commands. Nods head appropriately to questions. (Abel Vail) Lab, Micro, Other Results Last Impressions Head CT 08/21/17 0800 Signed Impressions: Service Date/Time: Monday, August 21, 2017 05:51 - CONCLUSION: Stable thin left frontal subdural hematoma Zachary Tracy MD Cervical Spine CT 08/20/17 0726 Signed Impressions: Service Date/Time: Sunday, August 20, 2017 07:36 - CONCLUSION: 1. No acute cervical spine abnormality is identified. 2. Stable degenerative changes, as above. Zachary Minaya MD Chest X-Ray 08/20/17 0638 Signed Impressions: Service Date/Time: Sunday, August 20, 2017 06:42 - CONCLUSION: Left suprahilar parenchymal opacity. Zachary Tracy MD Laboratory Tests Test 08/20/17 10:45 08/20/17 12:30 08/21/17 06:47 Prothrombin Time 11.7 SEC Prothromb Time International Ratio 1.2 RATIO Activated Partial Thromboplast Time 27.2 SEC Nasal Screen MRSA (PCR) MRSA NOT DETECTED (Abel Vail) Medical Decision Making Impression and Plan A: 82 y/o M with acute a left frontal small subdural hemorrhage with mild mass- effect and no midline shift after a fall. 2. Cardiomyopathy with history of coronary artery disease with recent coronary stent placement on aspirin and Plavix therapy. Vitals have been stable. 3. Raz-[id number]-[id number] diabetes mellitus. P: Continue to monitor neuro exam Rehab efforts with PT Continue to hold anticoagulation. Critical care has consulted hospitalist and pt will be transferred to the floor close to RN station given his confusion at night. (Abel Vail) Attending Statement The exam, history, and the medical decision-making described in the above note were completed with the assistance of the mid-level provider. I reviewed and agree with the findings presented. I attest that I had a [id number] encounter with the patient on the same day, and personally performed and documented my assessment and findings in the medical record. Stable follow-up CT scan of the head and neurologic examination. Transfer to floor and increase activity status. (Sin Diaz MD) Abel Vail August 21, 2017 07:28 Sin Diaz MD August 21, 2017 12:02
[2017-08-21 07:35] LABS: BICARBONATE 26.1 MEQ/L (21.0-32.0); CALCIUM 8.6 MG/DL (8.5-10.1); CREATININE 1.67 MG/DL (0.60-1.30); MAGNESIUM 1.9 MG/DL (1.5-2.5)
[2017-08-21] MEDS: INSULIN NovoLIN REGULAR SUPPLEMENTAL SCALE SQ SCH ×4 (08:00→22:19)
[2017-08-21] MEDS: SODIUM CHLORIDE 0.9% FLUSH 10 ML FLUSH IV FLUSH SCH ×2 (09:00→21:00)
[2017-08-21] MEDS: PANTOPRAZOLE SOD 40 MG DELAYED RELEASE TAB PO SCH (09:24)
[2017-08-21] MEDS: CARVEDILOL 3.125 MG TAB PO SCH ×2 (09:24→21:10)
[2017-08-21] MEDS: DOCUSATE SODIUM 50 MG/SENNA 8.6 MG TAB PO SCH ×2 (09:24→21:11)
--- NOTE | 2017-08-21 09:43 | PD.CARD.PN ---
Subjective Subjective Remarks lethargic in nad Objective Medications Current Medications Medications (Trade) Dose Ordered Sig/Aki Route Start Time Stop Time Status Last Admin (D50w (Vial) Inj) 50 ml UNSCH PRN IV PUSH 08/20/17 10:15 (Glucagon Inj) 1 mg UNSCH PRN OTHER 08/20/17 10:15 (NovoLIN R SUPPLEMENTAL SCALE) 1 ACHS SLIDING SCALE SQ 08/20/17 12:00 08/21/17 08:00 (NS Flush) 2 ml UNSCH PRN IV FLUSH 08/20/17 10:15 (NS Flush) 2 ml BID IV FLUSH 08/20/17 21:00 08/21/17 09:00 (Keppra) 500 mg Q12H PO 08/20/17 11:00 08/20/17 22:49 (Ativan Inj) 1 mg Q1H PRN IV PUSH 08/20/17 10:15 (Mag-Al Plus Susp Liq) 30 ml Q6H PRN PO 08/20/17 10:15 (Protonix) 40 mg DAILY PO 08/21/17 09:00 08/21/17 09:24 Calcium Gluconate 1 gm/Sodium Chloride 110 ml @ 110 mls/hr UNSCH PRN IV 08/20/17 10:15 Potassium Chloride 100 ml @ 50 mls/hr UNSCH PRN IV 08/20/17 10:15 Magnesium Sulfate 2 gm/Sodium Chloride 104 ml @ 100 mls/hr UNSCH PRN IV 08/20/17 10:15 ([place] 10-325 Mg) 1 tab Q4H PRN PO 08/20/17 10:15 ([place] 10-325 Mg) 2 tab Q4H PRN PO 08/20/17 10:15 (Morphine Inj) 2 mg Q2H PRN IV PUSH 08/20/17 10:15 (Trandate Inj) 10 mg Q1H PRN IV PUSH 08/20/17 10:15 (Catapres) 0.1 mg Q6H PRN PO 08/20/17 10:15 (Tylenol) 650 mg Q4H PRN PO 08/20/17 10:15 (Redig Robin) 1 lozenge UNSCH PRN BUCCAL 08/20/17 10:15 (Ambien) 5 mg HS PRN PO 08/20/17 10:15 (Albuterol Neb) 2.5 mg Q4HR NEB PRN NEB 08/20/17 10:15 (Martha-Colace) 1 tab BID PO 08/20/17 21:00 08/21/17 09:24 (Milk Of Magnesia Liq) 30 ml Q12H PRN PO 08/20/17 10:15 (Senokot) 17.2 mg Q12H PRN PO 08/20/17 10:15 (Dulcolax Supp) 10 mg DAILY PRN RECTAL 08/20/17 10:15 (Lactulose Liq) 30 ml DAILY PRN PO 08/20/17 10:15 Nicardipine HCl 25 mg/Sodium Chloride 250 ml @ 50 mls/hr TITRATE PRN IV 08/20/17 10:15 (Coreg) 3.125 mg Q12HR PO 08/20/17 21:00 08/21/17 09:24 (Flomax) 0.4 mg HS PO 08/20/17 21:00 08/20/17 21:56 (Duoneb Neb) 1 ampule Q6HR NEB NEB 08/20/17 16:00 08/21/17 09:06 Vital Signs / I&O Vital Signs Date Time Temp Pulse Resp B/P (MAP) Pulse Ox O2 Delivery O2 Flow Rate FiO2 08/21/17 08:00 84 08/21/17 08:00 100.3 85 21 122/57 (78) 95 08/21/17 07:00 Room Air 98 08/21/17 06:00 92 08/21/17 04:00 82 08/21/17 04:00 100.0 82 15 105/53 (70) 96 08/21/17 02:00 82 08/21/17 00:00 99.6 88 17 102/54 (70) 97 08/21/17 00:00 88 08/20/17 22:00 96 08/20/17 20:00 95 08/20/17 20:00 99.5 104 32 111/54 (73) 90 08/20/17 19:00 Room Air 99 08/20/17 18:00 100 08/20/17 16:00 82 08/20/17 16:00 98.5 90 23 113/57 (75) 98 08/20/17 14:00 80 08/20/17 12:35 08/20/17 12:20 98.4 77 20 119/57 (77) 94 08/20/17 12:20 77 08/20/17 12:13 80 16 118/57 (77) 95 Room Air 08/20/17 11:00 98.8 I/O 08/20/17 08/20/17 08/20/17 08/21/17 08/21/17 08/21/17 07:00 15:00 23:00 07:00 15:00 23:00 Intake Total 240 ml Balance 240 ml Intake Oral 240 ml # Voids 3 3 # Bowel Movements 0 Laboratory GENERAL: SKIN: Warm and dry. HEAD: Normocephalic. EYES: No scleral icterus. No injection or drainage. NECK: Supple, trachea midline. No JVD or lymphadenopathy. CARDIOVASCULAR: Regular rate and rhythm without murmurs, gallops, or rubs. RESPIRATORY: Breath sounds equal bilaterally. No accessory muscle use. GASTROINTESTINAL: Abdomen soft, non-tender, nondistended. MUSCULOSKELETAL: No cyanosis, or edema. BACK: Nontender without obvious deformity. No CVA tenderness. Laboratory Tests Test 08/20/17 10:45 08/20/17 12:30 08/21/17 06:47 Prothrombin Time 11.7 SEC Prothromb Time International Ratio 1.2 RATIO Activated Partial Thromboplast Time 27.2 SEC Nasal Screen MRSA (PCR) MRSA NOT DETECTED Blood Urea Nitrogen 27 MG/DL Creatinine 1.67 MG/DL Random Glucose 143 MG/DL Calcium Level 8.6 MG/DL Magnesium Level 1.9 MG/DL Sodium Level 140 MEQ/L Potassium Level 4.0 MEQ/L Chloride Level 104 MEQ/L Carbon Dioxide Level 26.1 MEQ/L Anion Gap 10 MEQ/L Estimat Glomerular Filtration Rate 39 ML/MIN Imaging Last [address] 08/21/17 0800 Signed Impressions: Service Date/Time: Monday, August 21, 2017 05:51 - CONCLUSION: Stable thin left frontal subdural hematoma Zachary Tracy MD Assessment and Plan Problem List: (1) CAD (coronary artery disease) ICD Codes: I25.10 - Atherosclerotic heart disease of [place] coronary artery without angina pectoris (2) Subdural hematoma ICD Codes: S06.5X9A - Traumatic subdural hemorrhage with loss of consciousness of unspecified duration, initial encounter Status: Acute (3) Cardiomyopathy ICD Codes: I42.9 - Cardiomyopathy, unspecified Assessment and Plan 1.) CAD - assymptomatic, dapt held due to sdh, Dr Joe montalvo, d/w Edi Farnsworth MD August 21, 2017 09:43
[2017-08-21] MEDS: levETIRAcetam 500 MG TAB PO SCH ×2 (11:00→22:01)
--- NOTE | 2017-08-21 11:44 | HHI.PR ---
Subjective Remarks Patient is somewhat sleepy today but able to be awakened. He has a history of being admitted for fall and resultant small subdural hematoma on the left frontal lobe measuring 7 mm. Objective Vitals Vital Signs Date Time Temp Pulse Resp B/P (MAP) Pulse Ox O2 Delivery O2 Flow Rate FiO2 08/21/17 10:00 90 08/21/17 08:00 84 08/21/17 08:00 100.3 85 21 122/57 (78) 95 08/21/17 07:00 Room Air 98 08/21/17 06:00 92 08/21/17 04:00 82 08/21/17 04:00 100.0 82 15 105/53 (70) 96 08/21/17 02:00 82 08/21/17 00:00 99.6 88 17 102/54 (70) 97 08/21/17 00:00 88 08/20/17 22:00 96 08/20/17 20:00 95 08/20/17 20:00 99.5 104 32 111/54 (73) 90 08/20/17 19:00 Room Air 99 08/20/17 18:00 100 08/20/17 16:00 82 08/20/17 16:00 98.5 90 23 113/57 (75) 98 08/20/17 14:00 80 08/20/17 12:35 08/20/17 12:20 98.4 77 20 119/57 (77) 94 08/20/17 12:20 77 08/20/17 12:13 80 16 118/57 (77) 95 Room Air I/O 08/20/17 08/20/17 08/20/17 08/21/17 08/21/17 08/21/17 07:00 15:00 23:00 07:00 15:00 23:00 Intake Total 240 ml Balance 240 ml Intake Oral 240 ml # Voids 3 3 # Bowel Movements 0 Result Diagram: 08/20/17 0645 08/21/17 0647 Objective Remarks GENERAL: Well-nourished, well-developed patient, sleepy SKIN: Warm and dry. HEAD: Normocephalic. EYES: No scleral icterus. No injection or drainage. NECK: Supple, trachea midline. No JVD or lymphadenopathy. CARDIOVASCULAR: Regular rate and rhythm without murmurs, gallops, or rubs. RESPIRATORY: Breath sounds equal bilaterally. No accessory muscle use. GASTROINTESTINAL: Abdomen soft, non-tender, nondistended. EXTREMITIES: No cyanosis, or edema. NEUROLOGICAL: Awake, alert, and oriented x 3. Non-focal. Sleepy A/P Problem List: (1) Subdural hematoma ICD Code: S06.5X9A - Traumatic subdural hemorrhage with loss of consciousness of unspecified duration, initial encounter Status: Acute (2) CHF (congestive heart failure) ICD Code: I50.9 - Heart failure, unspecified (3) CAD (coronary artery disease) ICD Code: I25.10 - Atherosclerotic heart disease of [place] coronary artery without angina pectoris Assessment and Plan Subdural hematoma Patient fell and hit the back of his head yesterday 7 mm on left frontal lobe, mild mass-effect, no midline shift Breathing and cardiac status appears stable, neurologic status is safe to be monitored on [facility] at this point due to stable CT Patient will be transferred from the ICU to [facility] Appreciate neurosurgery following h/o coronary artery disease with stents, h/o CHF Cardiology consulted to assist with decision to hold anticoagulants Anticoagulants are being held due to subdural hematoma Patient's cardiac status will be followed on telemetry Resume anticoagulants for stent protection when cleared by neurosurgery Appreciate cardiology following Type 2 diabetes Continue sliding scale insulin with Accu-Cheks Diabetic diet Benign prostatic hypertrophy Continue home dose of Flomax DVT prophylaxis Chemoprophylaxis held due to subdural hematoma following fall CARs Johnathon Hughes MD August 21, 2017 11:44
[2017-08-21] MEDS: SODIUM CHLOR 0.9% 1000 ML INJ 1,000 ML IV SCH (18:00)
[2017-08-21] MEDS ORDERED: LEVOFLOXACIN 500 MG PREMIX INJ 100 ML IV ONE (18:00)
[2017-08-21 20:02] LABS: AUTOMATED NEUTROPHIL # 7.9 TH/MM3 (1.8-7.7); BASOPHIL % 0.3 % (0.0-2.0); EOSINOPHIL % 0.1 % (0.0-4.0); HEMATOCRIT 24.6 % (39.0-51.0); HEMOGLOBIN 8.2 GM/DL (13.0-17.0); LYMPH % 6.7 % (9.0-44.0); LYMPHOCYTE # 0.6 TH/MM3 (1.0-4.8); MEAN CELL VOLUME 88.9 FL (80.0-100.0); MEAN CORPUSCULAR HEMOGLOBIN 29.8 PG (27.0-34.0); MEAN CORPUSCULAR HGB CONC 33.4 % (32.0-36.0); MEAN PLATELET VOLUME 7.4 FL (7.0-11.0); MONO % 8.7 % (0.0-8.0); MONOCYTE # 0.8 TH/MM3 (0-0.9); NEUT % 84.2 % (16.0-70.0); PLATELET COUNT 197 TH/MM3 (150-450); RED BLOOD COUNT 2.77 MIL/MM3 (4.50-5.90); RED CELL DISTRIBUTION WIDTH 14.1 % (11.6-17.2); WHITE BLOOD COUNT 9.4 TH/MM3 (4.0-11.0)
[2017-08-21] MEDS: TAMSULOSIN HCL 0.4 MG CAP PO SCH (21:10)
[2017-08-22] VITALS (11 sets, daily range): BP systolic 82–113; BP diastolic 53–69; PULSE 70–82; RESP 13–21; TEMP 97.8–100.2; O2SAT 95–100
[2017-08-22] MEDS: RESP: ALBUTEROL 2.5 MG/IPRATROPIUM 0.5 MG NEB (SCH) NEB ×4 (04:00→21:28)
[2017-08-22] MEDS: SODIUM CHLOR 0.9% 1000 ML INJ 1,000 ML IV SCH ×3 (04:00→23:35)
[2017-08-22 06:07] LABS: AUTOMATED NEUTROPHIL # 6.2 TH/MM3 (1.8-7.7); BASOPHIL % 0.4 % (0.0-2.0); EOSINOPHIL # 0.1 TH/MM3 (0-0.4); EOSINOPHIL % 0.6 % (0.0-4.0); HEMATOCRIT 23.7 % (39.0-51.0); HEMOGLOBIN 8.2 GM/DL (13.0-17.0); LYMPH % 9.3 % (9.0-44.0); LYMPHOCYTE # 0.7 TH/MM3 (1.0-4.8); MEAN CELL VOLUME 88.4 FL (80.0-100.0); MEAN CORPUSCULAR HEMOGLOBIN 30.5 PG (27.0-34.0); MEAN CORPUSCULAR HGB CONC 34.5 % (32.0-36.0); MEAN PLATELET VOLUME 7.5 FL (7.0-11.0); MONO % 11.5 % (0.0-8.0); MONOCYTE # 0.9 TH/MM3 (0-0.9); NEUT % 78.2 % (16.0-70.0); PLATELET COUNT 195 TH/MM3 (150-450); RED BLOOD COUNT 2.68 MIL/MM3 (4.50-5.90); RED CELL DISTRIBUTION WIDTH 13.8 % (11.6-17.2); WHITE BLOOD COUNT 7.9 TH/MM3 (4.0-11.0)
[2017-08-22 06:28] LABS: BICARBONATE 23.6 MEQ/L (21.0-32.0); CALCIUM 8.1 MG/DL (8.5-10.1); CREATININE 1.52 MG/DL (0.60-1.30)
[2017-08-22] MEDS: INSULIN NovoLIN REGULAR SUPPLEMENTAL SCALE SQ SCH ×4 (08:00→21:10)
[2017-08-22] MEDS: SODIUM CHLORIDE 0.9% FLUSH 10 ML FLUSH IV FLUSH SCH ×2 (09:00→20:49)
[2017-08-22] MEDS: CARVEDILOL 3.125 MG TAB PO SCH ×2 (09:05→20:48)
[2017-08-22] MEDS: DOCUSATE SODIUM 50 MG/SENNA 8.6 MG TAB PO SCH ×2 (09:05→20:48)
[2017-08-22] MEDS: PANTOPRAZOLE SOD 40 MG DELAYED RELEASE TAB PO SCH (09:05)
--- NOTE | 2017-08-22 10:30 | HHI.NSPN ---
(Abel Vail) History Chief Complaint: SDH. Periods of confusion at night. (Abel Vail) Interval History 82-year-old gentleman presents to the ER today brought in by his daughter because he apparently fell while getting into bed in the dark hitting the back of his head. He apparently he was lodged between the bed and the drawer, and he had to be helped up by daughter's . He is not sure whether he lost consciousness. He complains of back pain, but denies any other injuries. He is a poor historian with very dysarthric speech and heavy Nepali accent. He relates that he has had passing out spells in the past with falls and frequent urinary urgency but no bowel control issues. Reportedly a few weeks ago he had coronary stenting and is on aspirin and Plavix therapy. CT scan of the head obtained reveals a left frontal 7 mm subdural hemorrhage with mild mass-effect and no midline shift. CT of the cervical spine is negative for any fractures with degenerative changes noted. 08/21/17: Pt awakens to voice. He reportedly was up all night and is fatigued now. He nods his head he does not have any headaches, nausea or vomiting. He follows commands. 08/22/17: Pt very awake this morning. He denies any headache, nausea, vomiting. He states he has some neck discomfort but no radiculopathy or paresthesias in UEs. (Abel Vail) Review of Systems General: Negative for: fever, chills, insomnia Respiratory: Negative for: shortness of breath, cough, sputum Cardiovascular: Negative for: chest pain Gastrointestinal: Negative for: nausea, vomitting, diarrhea, constipation ( Abel Vail) Exam Results Vital Signs Date Time Temp Pulse Resp B/P (MAP) Pulse Ox O2 Delivery O2 Flow Rate FiO2 08/22/17 08:00 74 08/22/17 08:00 97.9 20 107/53 (71) 95 08/22/17 07:00 Room Air 95 Intake and Output 5/11/0208/22/17 08/23/17 08:00 16:00 00:00 Intake Total 1000 ml Balance 1000 ml (Abel Vail) Physical Examination General: Pt awakens to voice and light stimulation. Eyes: Pupils 3mm bilaterally reactive bilaterally. Sclera anicteric. 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 Moves all 4 extremities well. Neuro: Pt awake and alert. Pupils 3mm bilaterally reactive bilaterally. He follows commands. Speech clear and appropriate. (Abel Vail) Lab, Micro, Other Results Last Impressions Head CT 08/21/17 0800 Signed Impressions: Service Date/Time: Monday, August 21, 2017 05:51 - CONCLUSION: Stable thin left frontal subdural hematoma Zachary Tracy MD Cervical Spine CT 08/20/17 0726 Signed Impressions: Service Date/Time: Sunday, August 20, 2017 07:36 - CONCLUSION: 1. No acute cervical spine abnormality is identified. 2. Stable degenerative changes, as above. Zachary Minaya MD Chest X-Ray 08/20/17 0638 Signed Impressions: Service Date/Time: Sunday, August 20, 2017 06:42 - CONCLUSION: Left suprahilar parenchymal opacity. Zachary Trayc MD Laboratory Tests Test 08/21/17 19:44 08/22/17 04:28 White Blood Count 9.4 TH/MM3 7.9 TH/MM3 Red Blood Count 2.77 MIL/MM3 2.68 MIL/MM3 Hemoglobin 8.2 GM/DL 8.2 GM/DL Hematocrit 24.6 % 23.7 % Mean Corpuscular Volume 88.9 FL 88.4 FL Mean Corpuscular Hemoglobin 29.8 PG 30.5 PG Mean Corpuscular Hemoglobin Concent 33.4 % 34.5 % Red Cell Distribution Width 14.1 % 13.8 % Platelet Count 197 TH/MM3 195 TH/MM3 Mean Platelet Volume 7.4 FL 7.5 FL Neutrophils (%) (Auto) 84.2 % 78.2 % Lymphocytes (%) (Auto) 6.7 % 9.3 % Monocytes (%) (Auto) 8.7 % 11.5 % Eosinophils (%) (Auto) 0.1 % 0.6 % Basophils (%) (Auto) 0.3 % 0.4 % Neutrophils # (Auto) 7.9 TH/MM3 6.2 TH/MM3 Lymphocytes # (Auto) 0.6 TH/MM3 0.7 TH/MM3 Monocytes # (Auto) 0.8 TH/MM3 0.9 TH/MM3 Eosinophils # (Auto) 0.0 TH/MM3 0.1 TH/MM3 Basophils # (Auto) 0.0 TH/MM3 0.0 TH/MM3 CBC Comment DIFF FINAL DIFF FINAL Differential Comment Blood Urea Nitrogen 33 MG/DL Creatinine 1.52 MG/DL Random Glucose 99 MG/DL Calcium Level 8.1 MG/DL Sodium Level 138 MEQ/L Potassium Level 3.7 MEQ/L Chloride Level 105 MEQ/L Carbon Dioxide Level 23.6 MEQ/L Anion Gap 9 MEQ/L Estimat Glomerular Filtration Rate 44 ML/MIN (Abel Vail) Medical Decision Making Impression and Plan A: 82 y/o M with acute a left frontal small subdural hemorrhage with mild mass- effect and no midline shift after a fall. 2. Cardiomyopathy with history of coronary artery disease with recent coronary stent placement on aspirin and Plavix therapy. Vitals have been stable. 3. Kav-sgvkiwy-gpmqqmquw diabetes mellitus. P: Continue to monitor neuro exam Rehab efforts with PT Continue to hold anticoagulation. Critical care has consulted hospitalist and pt will be transferred to the floor close to RN station given his confusion at night. (Abel Vail) Attending Statement The exam, history, and the medical decision-making described in the above note were completed with the assistance of the mid-level provider. I reviewed and agree with the findings presented. I attest that I had a hinl-nu-oqyk encounter with the patient on the same day, and personally performed and documented my assessment and findings in the medical record. Awake and alert but confused at times. Speech is fluent although slightly dysarthric. Follows simple commands and moves upper extremity. Stable neurologic examination and follow-up CT scan of the head. Nonsurgical management of the subdural hemorrhage with increase activity status as tolerated. (Sin Diaz MD) Abel Vail August 22, 2017 10:30 Sin Diaz MD August 22, 2017 16:13
[2017-08-22] MEDS: levETIRAcetam 500 MG TAB PO SCH ×2 (12:26→23:35)
--- NOTE | 2017-08-22 12:47 | HHI.PR ---
Subjective Remarks Patient's daughter is at bedside today. She states he is more clear in his thinking and more oriented than yesterday. Patient's only complaint is that he is hungry. Objective Vitals Vital Signs Date Time Temp Pulse Resp B/P (MAP) Pulse Ox O2 Delivery O2 Flow Rate FiO2 08/22/17 12:00 72 08/22/17 12:00 98.0 72 19 113/59 (77) 100 08/22/17 10:00 74 08/22/17 08:00 74 08/22/17 08:00 97.9 74 20 107/53 (71) 95 08/22/17 07:00 Room Air 95 08/22/17 06:00 70 08/22/17 04:00 100.2 70 13 104/55 (71) 96 08/22/17 04:00 70 08/22/17 02:00 75 08/22/17 00:00 82 08/22/17 00:00 100.1 82 20 82/69 (73) 96 08/21/17 22:00 78 08/21/17 20:00 100.2 86 21 113/56 (75) 96 08/21/17 20:00 86 08/21/17 19:00 Room Air 96 08/21/17 18:00 93 08/21/17 16:00 100.2 95 20 119/56 (77) 100 08/21/17 16:00 95 08/21/17 14:00 81 I/O 08/21/17 08/21/17 08/21/17 08/22/17 08/22/17 08/22/17 07:00 15:00 23:00 07:00 15:00 23:00 Intake Total 200 ml 1000 ml Output Total 120 ml Balance 80 ml 1000 ml Intake Oral 100 ml IV Total 100 ml 1000 ml Output Urine Total 120 ml # Voids 3 3 1 # Bowel Movements 0 Result Diagram: 08/22/17 0428 08/22/17 042 Objective Remarks GENERAL: Well-nourished, well-developed patient, awake, oriented SKIN: Warm and dry. HEAD: Normocephalic. EYES: No scleral icterus. No injection or drainage. NECK: Supple, trachea midline. No JVD or lymphadenopathy. CARDIOVASCULAR: Regular rate and rhythm without murmurs, gallops, or rubs. RESPIRATORY: Breath sounds equal bilaterally. No accessory muscle use. GASTROINTESTINAL: Abdomen soft, non-tender, nondistended. EXTREMITIES: No cyanosis, or edema. NEUROLOGICAL: Awake, alert, dementia at baseline. Non-focal. Sleepy A/P Problem List: (1) Subdural hematoma ICD Code: S06.5X9A - Traumatic subdural hemorrhage with loss of consciousness of unspecified duration, initial encounter Status: Acute (2) CHF (congestive heart failure) ICD Code: I50.9 - Heart failure, unspecified (3) CAD (coronary artery disease) ICD Code: I25.10 - Atherosclerotic heart disease of [place] coronary artery without angina pectoris Assessment and Plan Subdural hematoma Patient fell and hit the back of his head yesterday 7 mm on left frontal lobe, mild mass-effect, no midline shift Breathing and cardiac status appears stable, neurologic status is safe to be monitored on [facility] at this point due to stable CT Awaiting transfer from ICU to [facility] Appreciate neurosurgery following h/o dementia Per daughter patient has history of dementia and is confused at times even at his own house He is able to perform basic functions like walking to his pharmacy or picking up some groceries He is not able to drive h/o coronary artery disease with stents, h/o CHF Cardiology consulted to assist with decision to hold anticoagulants Anticoagulants are being held due to subdural hematoma Patient's cardiac status will be followed on telemetry Resume anticoagulants for stent protection when cleared by neurosurgery Appreciate cardiology following Type 2 diabetes Continue sliding scale insulin with Accu-Cheks Diabetic diet Benign prostatic hypertrophy Continue home dose of Flomax DVT prophylaxis Chemoprophylaxis held due to subdural hematoma following fall SCDs Johnathon Hughes MD August 22, 2017 12:47
--- NOTE | 2017-08-22 13:46 | PD.CARD.PN ---
Subjective Subjective Remarks lucid in nad Objective Medications Current Medications Medications (Trade) Dose Ordered Sig/Aki Route Start Time Stop Time Status Last Admin (D50w (Vial) Inj) 50 ml UNSCH PRN IV PUSH 08/20/17 10:15 (Glucagon Inj) 1 mg UNSCH PRN OTHER 08/20/17 10:15 (NovoLIN R SUPPLEMENTAL SCALE) 1 ACHS SLIDING SCALE SQ 08/20/17 12:00 08/22/17 12:26 (NS Flush) 2 ml UNSCH PRN IV FLUSH 08/20/17 10:15 (NS Flush) 2 ml BID IV FLUSH 08/20/17 21:00 08/21/17 21:00 (Keppra) 500 mg Q12H PO 08/20/17 11:00 08/22/17 12:26 (Ativan Inj) 1 mg Q1H PRN IV PUSH 08/20/17 10:15 (Mag-Al Plus Susp Liq) 30 ml Q6H PRN PO 08/20/17 10:15 (Protonix) 40 mg DAILY PO 08/21/17 09:00 08/22/17 09:05 Calcium Gluconate 1 gm/Sodium Chloride 110 ml @ 110 mls/hr UNSCH PRN IV 08/20/17 10:15 Potassium Chloride 100 ml @ 50 mls/hr UNSCH PRN IV 08/20/17 10:15 Magnesium Sulfate 2 gm/Sodium Chloride 104 ml @ 100 mls/hr UNSCH PRN IV 08/20/17 10:15 ([place] 10-325 Mg) 1 tab Q4H PRN PO 08/20/17 10:15 ([place] 10-325 Mg) 2 tab Q4H PRN PO 08/20/17 10:15 (Morphine Inj) 2 mg Q2H PRN IV PUSH 08/20/17 10:15 (Trandate Inj) 10 mg Q1H PRN IV PUSH 08/20/17 10:15 (Catapres) 0.1 mg Q6H PRN PO 08/20/17 10:15 (Tylenol) 650 mg Q4H PRN PO 08/20/17 10:15 ([place] Robin) 1 lozenge UNSCH PRN BUCCAL 08/20/17 10:15 (Ambien) 5 mg HS PRN PO 08/20/17 10:15 (Albuterol Neb) 2.5 mg Q4HR NEB PRN NEB 08/20/17 10:15 (Martha-Colace) 1 tab BID PO 08/20/17 21:00 08/22/17 09:05 (Milk Of Magnesia Liq) 30 ml Q12H PRN PO 08/20/17 10:15 (Senokot) 17.2 mg Q12H PRN PO 08/20/17 10:15 (Dulcolax Supp) 10 mg DAILY PRN RECTAL 08/20/17 10:15 (Lactulose Liq) 30 ml DAILY PRN PO 08/20/17 10:15 Nicardipine HCl 25 mg/Sodium Chloride 250 ml @ 50 mls/hr TITRATE PRN IV 08/20/17 10:15 (Coreg) 3.125 mg Q12HR PO 08/20/17 21:00 08/22/17 09:05 (Flomax) 0.4 mg HS PO 08/20/17 21:00 08/21/17 21:10 (Duoneb Neb) 1 ampule Q6HR NEB NEB 08/20/17 16:00 08/22/17 08:54 Sodium Chloride 1,000 ml @ 100 mls/hr Q10H IV 08/21/17 18:00 08/22/17 04:00 Levofloxacin/ Dextrose 50 ml @ 50 mls/hr Q24H IV 08/22/17 18:00 Vital Signs / I&O Vital Signs Date Time Temp Pulse Resp B/P (MAP) Pulse Ox O2 Delivery O2 Flow Rate FiO2 08/22/17 12:00 72 08/22/17 12:00 98.0 72 19 113/59 (77) 100 08/22/17 10:00 74 08/22/17 08:00 74 08/22/17 08:00 97.9 74 20 107/53 (71) 95 08/22/17 07:00 Room Air 95 08/22/17 06:00 70 08/22/17 04:00 100.2 70 13 104/55 (71) 96 08/22/17 04:00 70 08/22/17 02:00 75 08/22/17 00:00 82 08/22/17 00:00 100.1 82 20 82/69 (73) 96 08/21/17 22:00 78 08/21/17 20:00 100.2 86 21 113/56 (75) 96 08/21/17 20:00 86 08/21/17 19:00 Room Air 96 08/21/17 18:00 93 08/21/17 16:00 100.2 95 20 119/56 (77) 100 08/21/17 16:00 95 08/21/17 14:00 81 I/O 08/21/17 08/21/17 08/21/17 08/22/17 08/22/17 08/22/17 07:00 15:00 23:00 07:00 15:00 23:00 Intake Total 200 ml 1000 ml 120 ml Output Total 120 ml 200 ml Balance 80 ml 1000 ml -80 ml Intake Oral 100 ml 120 ml IV Total 100 ml 1000 ml Output Urine Total 120 ml 200 ml # Voids 3 3 1 1 # Bowel Movements 0 1 Physical Exam GENERAL: SKIN: Warm and dry. HEAD: Normocephalic. EYES: No scleral icterus. No injection or drainage. NECK: Supple, trachea midline. No JVD or lymphadenopathy. CARDIOVASCULAR: Regular rate and rhythm without murmurs, gallops, or rubs. RESPIRATORY: Breath sounds equal bilaterally. No accessory muscle use. GASTROINTESTINAL: Abdomen soft, non-tender, nondistended. MUSCULOSKELETAL: No cyanosis, or edema. BACK: Nontender without obvious deformity. No CVA tenderness. Laboratory Laboratory Tests Test 08/21/17 19:44 08/22/17 04:28 White Blood Count 9.4 TH/MM3 7.9 TH/MM3 Red Blood Count 2.77 MIL/MM3 2.68 MIL/MM3 Hemoglobin 8.2 GM/DL 8.2 GM/DL Hematocrit 24.6 % 23.7 % Mean Corpuscular Volume 88.9 FL 88.4 FL Mean Corpuscular Hemoglobin 29.8 PG 30.5 PG Mean Corpuscular Hemoglobin Concent 33.4 % 34.5 % Red Cell Distribution Width 14.1 % 13.8 % Platelet Count 197 TH/MM3 195 TH/MM3 Mean Platelet Volume 7.4 FL 7.5 FL Neutrophils (%) (Auto) 84.2 % 78.2 % Lymphocytes (%) (Auto) 6.7 % 9.3 % Monocytes (%) (Auto) 8.7 % 11.5 % Eosinophils (%) (Auto) 0.1 % 0.6 % Basophils (%) (Auto) 0.3 % 0.4 % Neutrophils # (Auto) 7.9 TH/MM3 6.2 TH/MM3 Lymphocytes # (Auto) 0.6 TH/MM3 0.7 TH/MM3 Monocytes # (Auto) 0.8 TH/MM3 0.9 TH/MM3 Eosinophils # (Auto) 0.0 TH/MM3 0.1 TH/MM3 Basophils # (Auto) 0.0 TH/MM3 0.0 TH/MM3 CBC Comment DIFF FINAL DIFF FINAL Differential Comment Blood Urea Nitrogen 33 MG/DL Creatinine 1.52 MG/DL Random Glucose 99 MG/DL Calcium Level 8.1 MG/DL Sodium Level 138 MEQ/L Potassium Level 3.7 MEQ/L Chloride Level 105 MEQ/L Carbon Dioxide Level 23.6 MEQ/L Anion Gap 9 MEQ/L Estimat Glomerular Filtration Rate 44 ML/MIN Assessment and Plan Problem List: (1) CAD (coronary artery disease) ICD Codes: I25.10 - Atherosclerotic heart disease of [place] coronary artery without angina pectoris (2) Subdural hematoma ICD Codes: S06.5X9A - Traumatic subdural hemorrhage with loss of consciousness of unspecified duration, initial encounter Status: Acute (3) Cardiomyopathy ICD Codes: I42.9 - Cardiomyopathy, unspecified Assessment and Plan 1.) CAD - assymptomatic, dapt held due to sdh, Dr Joe montalvo, d/w Dr Yuan; pci was done 08/08/17 with 4.0/15 mm integrity bare metal stent Edi Gandara MD August 22, 2017 13:46
[2017-08-22] MEDS: LEVOFLOXACIN/DEXTROSE 250 MG/50 ML IV SCH (17:26)
[2017-08-22] MEDS: TAMSULOSIN HCL 0.4 MG CAP PO SCH (20:48)
[2017-08-23] VITALS (10 sets, daily range): BP systolic 90–114; BP diastolic 54–61; PULSE 72–88; RESP 13–25; TEMP 97.6–98.5; O2SAT 94–99
[2017-08-23] MEDS: SODIUM CHLOR 0.9% 1000 ML INJ 1,000 ML IV SCH ×3 (02:46→20:46)
[2017-08-23] MEDS: RESP: ALBUTEROL 2.5 MG/IPRATROPIUM 0.5 MG NEB (SCH) NEB ×4 (03:58→20:14)
[2017-08-23 05:55] LABS: BASOPHIL % 0.3 % (0.0-2.0); EOSINOPHIL # 0.6 TH/MM3 (0-0.4); EOSINOPHIL % 8.2 % (0.0-4.0); HEMATOCRIT 22.8 % (39.0-51.0); HEMOGLOBIN 7.7 GM/DL (13.0-17.0); LYMPH % 11.3 % (9.0-44.0); LYMPHOCYTE # 0.8 TH/MM3 (1.0-4.8); MEAN CELL VOLUME 89.2 FL (80.0-100.0); MEAN CORPUSCULAR HEMOGLOBIN 30.2 PG (27.0-34.0); MEAN CORPUSCULAR HGB CONC 33.8 % (32.0-36.0); MEAN PLATELET VOLUME 7.2 FL (7.0-11.0); MONO % 11.7 % (0.0-8.0); MONOCYTE # 0.9 TH/MM3 (0-0.9); NEUT % 68.5 % (16.0-70.0); PLATELET COUNT 192 TH/MM3 (150-450); RED BLOOD COUNT 2.56 MIL/MM3 (4.50-5.90); RED CELL DISTRIBUTION WIDTH 14.1 % (11.6-17.2); WHITE BLOOD COUNT 7.3 TH/MM3 (4.0-11.0)
[2017-08-23 06:18] LABS: BICARBONATE 24.2 MEQ/L (21.0-32.0); CALCIUM 8.1 MG/DL (8.5-10.1); CREATININE 1.75 MG/DL (0.60-1.30)
[2017-08-23] MEDS: SODIUM CHLORIDE 0.9% FLUSH 10 ML FLUSH IV FLUSH SCH ×2 (08:47→20:15)
[2017-08-23] MEDS: PANTOPRAZOLE SOD 40 MG DELAYED RELEASE TAB PO SCH (08:48)
[2017-08-23] MEDS: INSULIN NovoLIN REGULAR SUPPLEMENTAL SCALE SQ SCH ×4 (08:48→20:46)
[2017-08-23] MEDS: CARVEDILOL 3.125 MG TAB PO SCH ×2 (08:48→20:15)
[2017-08-23] MEDS: DOCUSATE SODIUM 50 MG/SENNA 8.6 MG TAB PO SCH ×2 (08:48→20:15)
--- NOTE | 2017-08-23 10:35 | HHI.NSPN ---
(Abel Vail) History Chief Complaint: SDH. Periods of confusion at night. (Abel Vail) Interval History 82-year-old gentleman presents to the ER today brought in by his daughter because he apparently fell while getting into bed in the dark hitting the back of his head. He apparently he was lodged between the bed and the drawer, and he had to be helped up by daughter's . He is not sure whether he lost consciousness. He complains of back pain, but denies any other injuries. He is a poor historian with very dysarthric speech and heavy [place] accent. He relates that he has had passing out spells in the past with falls and frequent urinary urgency but no bowel control issues. Reportedly a few weeks ago he had coronary stenting and is on aspirin and Plavix therapy. CT scan of the head obtained reveals a left frontal 7 mm subdural hemorrhage with mild mass-effect and no midline shift. CT of the cervical spine is negative for any fractures with degenerative changes noted. 08/21/17: Pt awakens to voice. He reportedly was up all night and is fatigued now. He nods his head he does not have any headaches, nausea or vomiting. He follows commands. 08/22/17: Pt very awake this morning. He denies any headache, nausea, vomiting. He states he has some neck discomfort but no radiculopathy or paresthesias in UEs. 08/23/17: Pt again very awake this morning sitting up in bed with breathing treatment. Denies headaches, nausea, or vomiting. He complains of neck discomfort but not radiculopathy or paresthesias in UEs. Follows commands well. (Abel Vail) Review of Systems General: Negative for: fever, chills, insomnia Respiratory: Negative for: shortness of breath, cough, sputum Cardiovascular: Negative for: chest pain Gastrointestinal: Negative for: nausea, vomitting, diarrhea, constipation ( Abel Vail) Exam Results Vital Signs Date Time Temp Pulse Resp B/P (MAP) Pulse Ox O2 Delivery O2 Flow Rate FiO2 08/23/17 10:00 81 08/23/17 08:00 97.6 20 111/57 (75) 97 08/23/17 07:00 Room Air 97 Intake and Output 08/23/17 08/23/17 08/24/17 08:00 16:00 00:00 Intake Total 1250 ml 750 ml Output Total 300 ml Balance 950 ml 750 ml (Abel Vail) Physical Examination General: Pt awake and alert, sitting up in bed in NAD. Eyes: Pupils 3mm bilaterally reactive bilaterally. Sclera anicteric. Resp: CTA bilaterally Heart: NSR no murmurs Abd: Soft positive bs Skin: No cyanosis or erythema Muscle: [employer] hands symmetrically, moves toes. Moves all 4 extremities well. Neuro: Pt awake and alert. Pupils 3mm bilaterally reactive bilaterally. He follows commands. Speech clear and appropriate. (Abel Vail) Lab, Micro, Other Results Last Impressions Head CT 08/21/17 0800 Signed Impressions: Service Date/Time: Monday, August 21, 2017 05:51 - CONCLUSION: Stable thin left frontal subdural hematoma Zachary Tracy MD Cervical Spine CT 08/20/17 0726 Signed Impressions: Service Date/Time: Sunday, August 20, 2017 07:36 - CONCLUSION: 1. No acute cervical spine abnormality is identified. 2. Stable degenerative changes, as above. Zachary Minaya MD Chest X-Ray 08/20/17 0638 Signed Impressions: Service Date/Time: Sunday, August 20, 2017 06:42 - CONCLUSION: Left suprahilar parenchymal opacity. Zachary Tracy MD Laboratory Tests Test 08/23/17 05:36 White Blood Count 7.3 TH/MM3 Red Blood Count 2.56 MIL/MM3 Hemoglobin 7.7 GM/DL Hematocrit 22.8 % Mean Corpuscular Volume 89.2 FL Mean Corpuscular Hemoglobin 30.2 PG Mean Corpuscular Hemoglobin Concent 33.8 % Red Cell Distribution Width 14.1 % Platelet Count 192 TH/MM3 Mean Platelet Volume 7.2 FL Neutrophils (%) (Auto) 68.5 % Lymphocytes (%) (Auto) 11.3 % Monocytes (%) (Auto) 11.7 % Eosinophils (%) (Auto) 8.2 % Basophils (%) (Auto) 0.3 % Neutrophils # (Auto) 5.0 TH/MM3 Lymphocytes # (Auto) 0.8 TH/MM3 Monocytes # (Auto) 0.9 TH/MM3 Eosinophils # (Auto) 0.6 TH/MM3 Basophils # (Auto) 0.0 TH/MM3 CBC Comment DIFF FINAL Differential Comment Blood Urea Nitrogen 38 MG/DL Creatinine 1.75 MG/DL Random Glucose 142 MG/DL Calcium Level 8.1 MG/DL Sodium Level 138 MEQ/L Potassium Level 4.0 MEQ/L Chloride Level 106 MEQ/L Carbon Dioxide Level 24.2 MEQ/L Anion Gap 8 MEQ/L Estimat Glomerular Filtration Rate 37 ML/MIN 08/23/17 08/23/17 08/24/17 15:00 23:00 07:00 Intake Total 750 ml Balance 750 ml IV Total 750 ml (Abel Vail) Medical Decision Making Impression and Plan A: 82 y/o M with acute a left frontal small subdural hemorrhage with mild mass- effect and no midline shift after a fall. 2. Cardiomyopathy with history of coronary artery disease with recent coronary stent placement on aspirin and Plavix therapy. Vitals have been stable. 3. [id number] diabetes mellitus. P: Continue to monitor neuro exam Rehab efforts with PT Continue to hold anticoagulation. Rehab placement. (Abel Vail) Attending Statement The exam, history, and the medical decision-making described in the above note were completed with the assistance of the mid-level provider. I reviewed and agree with the findings presented. I attest that I had a [id number] encounter with the patient on the same day, and personally performed and documented my assessment and findings in the medical record. (Sin Diaz MD) Abel Vail August 23, 2017 10:35 Sin Diaz MD August 23, 2017 18:21
[2017-08-23] MEDS: levETIRAcetam 500 MG TAB PO SCH (11:45)
--- NOTE | 2017-08-23 11:53 | HHI.PR ---
Subjective Remarks in no acute distress. resting comfortably. denies pain. d/w the RN and no acute issues over night. Objective Vitals Vital Signs Date Time Temp Pulse Resp B/P (MAP) Pulse Ox O2 Delivery O2 Flow Rate FiO2 08/23/17 10:00 81 08/23/17 08:00 97.6 80 20 111/57 (75) 97 08/23/17 08:00 80 08/23/17 07:00 Room Air 97 08/23/17 04:00 98.1 84 20 104/57 (73) 94 08/23/17 00:00 98.0 74 13 90/61 (71) 95 08/22/17 20:00 Room Air 08/22/17 20:00 77 08/22/17 20:00 97.8 72 18 94/57 (69) 96 08/22/17 18:00 74 08/22/17 16:00 74 08/22/17 16:00 98.6 74 21 102/57 (72) 96 08/22/17 14:00 74 08/22/17 12:00 72 08/22/17 12:00 98.0 72 19 113/59 (77) 100 I/O 08/22/17 08/22/17 08/22/17 08/23/17 08/23/17 08/23/17 07:00 15:00 23:00 07:00 15:00 23:00 Intake Total 1000 ml 120 ml 170 ml 1250 ml 750 ml Output Total 200 ml 150 ml 300 ml Balance 1000 ml -80 ml 20 ml 950 ml 750 ml Intake Oral 120 ml 120 ml 250 ml IV Total 1000 ml 50 ml 1000 ml 750 ml Output Urine Total 200 ml 150 ml 300 ml # Voids 1 1 2 # Bowel Movements 1 0 Result Diagram: 08/23/1736 08/23/1736 Imaging Last Impressions Head CT 08/21/17 0800 Signed Impressions: Service Date/Time: Monday, August 21, 2017 05:51 - CONCLUSION: Stable thin left frontal subdural hematoma Zachary Tracy MD Cervical Spine CT 08/20/17 07 Signed Impressions: Service Date/Time: Sunday, August 20, 2017 07:36 - CONCLUSION: 1. No acute cervical spine abnormality is identified. 2. Stable degenerative changes, as above. Zachary Minaya MD Chest X-Ray 08/20/17 0638 Signed Impressions: Service Date/Time: Sunday, August 20, 2017 06:42 - CONCLUSION: Left suprahilar parenchymal opacity. Zachary Tracy MD Objective Remarks GENERAL: This is a well-nourished, well-developed patient, in no apparent distress. CARDIOVASCULAR: Regular rate and regular rhythm without murmurs, gallops, or rubs. RESPIRATORY: Clear to auscultation. Breath sounds equal bilaterally. No wheezes , rales, or rhonchi. GASTROINTESTINAL: Abdomen soft, non-tender, nondistended. Normal, active bowel sounds MUSCULOSKELETAL: Extremities without clubbing, cyanosis, or edema. NEURO: awake and alert. Medications and IVs Inpatient Medications Acetaminophen (Tylenol) 650 mg Q4H PRN PO TEMPERATURE > 101.5 F; Start 08/20/17 at 10:15 Acetaminophen/ Hydrocodone Bitart ([place] 10-325 Mg) 2 tab Q4H PRN PO PAIN SCALE 6 TO 10; Start 08/20/17 at 10:15 Al Hydrox/Mg Hydrox/Simethicone (Mag-Al Plus Susp Liq) 30 ml Q6H PRN PO DYSPEPSIA; Start 08/20/17 at 10:15 Albuterol Sulfate (Albuterol Neb) 2.5 mg Q4HR NEB PRN NEB WHEEZING; Start at 10:15 Albuterol/ Ipratropium (Duoneb Neb) 1 ampule Q6HR NEB NEB Last administered on 08/23/17at 09:01; Start 08/20/17 at 16:00 Bisacodyl (Dulcolax Supp) 10 mg DAILY PRN RECTAL SEVERE CONSITIPATION; Start at 10:15 Calcium Gluconate 1 gm/Sodium Chloride 110 ml @ 110 mls/hr UNSCH PRN IV SEE LABEL COMMENTS; Start 08/20/17 at 10:15 Carvedilol (Coreg) 3.125 mg Q12HR PO Last administered on 08/23/17at 08:48; Start 08/20/17 at 21:00 Clonidine (Catapres) 0.1 mg Q6H PRN PO SYS BP GREATER THAN 170 MMHG; Start 08/20 at 10:15 Dextrose (D50w (Vial) Inj) 50 ml UNSCH PRN IV PUSH HYPOGLYCEMIA-SEE COMMENTS; Start 08/20/17 at 10:15 Glucagon (Glucagon Inj) 1 mg UNSCH PRN OTHER HYPOGLYCEMIA-SEE COMMENTS; Start 08/20/17 at 10:15 Insulin Human Regular (NovoLIN R SUPPLEMENTAL SCALE) 1 ACHS SLIDING SCALE SQ Last administered on 08/23/17at 08:48; Start 08/20/17 at 12:00 Labetalol HCl (Trandate Inj) 10 mg Q1H PRN IV PUSH SYS BP GREATER THAN 170 MMHG ; Start 08/20/17 at 10:15 Lactulose (Lactulose Liq) 30 ml DAILY PRN PO SEVERE CONSITIPATION; Start at 10:15 Levetriacetam (Keppra) 500 mg Q12H PO Last administered on 08/22/17at 23:35; Start 08/20/17 at 11:00 Levofloxacin/ Dextrose 50 ml @ 50 mls/hr Q24H IV Last administered on 08/22/17at 17:26; Start 08/22/17 at 18:00 Lorazepam (Ativan Inj) 1 mg Q1H PRN IV PUSH SEIZURES; Start 08/20/17 at 10:15 Magnesium Hydroxide (Milk Of Magnesia Liq) 30 ml Q12H PRN PO Mild constipation ; Start 08/20/17 at 10:15 Magnesium Sulfate 2 gm/Sodium Chloride 104 ml @ 100 mls/hr UNSCH PRN IV MAGNESIUM LESS THAN 2; Start 08/20/17 at 10:15 Menthol ([place] Robin) 1 lozenge UNSCH PRN BUCCAL SORE THROAT; Start 08/20/17 at 10 :15 Morphine Sulfate (Morphine Inj) 2 mg Q2H PRN IV PUSH breakthrough pain>6; Start 08/20/17 at 10:15 Nicardipine HCl 25 mg/Sodium Chloride 250 ml @ 50 mls/hr TITRATE PRN IV Blood pressure management; Start 08/20/17 at 10:15 Pantoprazole Sodium (Protonix) 40 mg DAILY PO Last administered on 08/23/17at 08: 48; Start 08/21/17 at 09:00 Potassium Chloride 100 ml @ 50 mls/hr UNSCH PRN IV POTASSIUM LESS THAN 4; Start 08/20/17 at 10:15 Senna/Docusate Sodium (Martha-Colace) 1 tab BID PO Last administered on 08/23/17at 08:48; Start 08/20/17 at 21:00 Sennosides (Senokot) 17.2 mg Q12H PRN PO Moderate constipation; Start 08/20/17 at 10:15 Sodium Chloride 1,000 ml @ 100 mls/hr Q10H IV Last administered on 08/23/17at 10 :14; Start 08/21/17 at 18:00 Sodium Chloride (NS Flush) 2 ml BID IV FLUSH Last administered on 08/21/17at 21: 00; Start 08/20/17 at 21:00 Tamsulosin HCl (Flomax) 0.4 mg HS PO Last administered on 08/22/17at 20:48; Start 08/20/17 at 21:00 Zolpidem Tartrate (Ambien) 5 mg HS PRN PO INSOMNIA; Start 08/20/17 at 10:15 A/P Problem List: (1) Subdural hematoma ICD Code: S06.5X9A - Traumatic subdural hemorrhage with loss of consciousness of unspecified duration, initial encounter Status: Acute (2) CHF (congestive heart failure) ICD Code: I50.9 - Heart failure, unspecified (3) CAD (coronary artery disease) ICD Code: I25.10 - Atherosclerotic heart disease of [place] coronary artery without angina pectoris Assessment and Plan Subdural hematoma Patient fell and hit the back of his head yesterday 7 mm on left frontal lobe, mild mass-effect, no midline shift Breathing and cardiac status appears stable, neurologic status is safe to be monitored on [facility] at this point due to stable CT Awaiting transfer from ICU to [facility] Appreciate neurosurgery following h/o dementia Per daughter patient has history of dementia and is confused at times even at his own house He is able to perform basic functions like walking to his pharmacy or picking up some groceries He is not able to drive h/o coronary artery disease with stents, h/o CHF Cardiology consulted to assist with decision to hold anticoagulants Anticoagulants are being held due to subdural hematoma Patient's cardiac status will be followed on telemetry Resume anticoagulants for stent protection when cleared by neurosurgery Appreciate cardiology following Type 2 diabetes Continue sliding scale insulin with Accu-Cheks Diabetic diet Benign prostatic hypertrophy Continue home dose of Flomax DVT prophylaxis Chemoprophylaxis held due to subdural hematoma following fall SCDs Minouei,Mohammadreza MD August 23, 2017 11:53
--- NOTE | 2017-08-23 12:10 | PD.CARD.PN ---
Subjective Subjective Remarks lucid in nad, ambulating beyer with walker assisted by PT Objective Medications Current Medications Medications (Trade) Dose Ordered Sig/Aki Route Start Time Stop Time Status Last Admin (D50w (Vial) Inj) 50 ml UNSCH PRN IV PUSH 08/20/17 10:15 (Glucagon Inj) 1 mg UNSCH PRN OTHER 08/20/17 10:15 (NovoLIN R SUPPLEMENTAL SCALE) 1 ACHS SLIDING SCALE SQ 08/20/17 12:00 08/23/17 11:45 (NS Flush) 2 ml UNSCH PRN IV FLUSH 08/20/17 10:15 (NS Flush) 2 ml BID IV FLUSH 08/20/17 21:00 08/21/17 21:00 (Keppra) 500 mg Q12H PO 08/20/17 11:00 08/23/17 11:45 (Ativan Inj) 1 mg Q1H PRN IV PUSH 08/20/17 10:15 (Mag-Al Plus Susp Liq) 30 ml Q6H PRN PO 08/20/17 10:15 (Protonix) 40 mg DAILY PO 08/21/17 09:00 08/23/17 08:48 Calcium Gluconate 1 gm/Sodium Chloride 110 ml @ 110 mls/hr UNSCH PRN IV 08/20/17 10:15 Potassium Chloride 100 ml @ 50 mls/hr UNSCH PRN IV 08/20/17 10:15 Magnesium Sulfate 2 gm/Sodium Chloride 104 ml @ 100 mls/hr UNSCH PRN IV 08/20/17 10:15 ([place] 10-325 Mg) 1 tab Q4H PRN PO 08/20/17 10:15 08/22/17 16:20 ([place] 10-325 Mg) 2 tab Q4H PRN PO 08/20/17 10:15 (Morphine Inj) 2 mg Q2H PRN IV PUSH 08/20/17 10:15 (Trandate Inj) 10 mg Q1H PRN IV PUSH 08/20/17 10:15 (Catapres) 0.1 mg Q6H PRN PO 08/20/17 10:15 (Tylenol) 650 mg Q4H PRN PO 08/20/17 10:15 ([place] Robin) 1 lozenge UNSCH PRN BUCCAL 08/20/17 10:15 (Ambien) 5 mg HS PRN PO 08/20/17 10:15 (Albuterol Neb) 2.5 mg Q4HR NEB PRN NEB 08/20/17 10:15 (Martha-Colace) 1 tab BID PO 08/20/17 21:00 08/23/17 08:48 (Milk Of Magnesia Liq) 30 ml Q12H PRN PO 08/20/17 10:15 (Senokot) 17.2 mg Q12H PRN PO 08/20/17 10:15 (Dulcolax Supp) 10 mg DAILY PRN RECTAL 08/20/17 10:15 (Lactulose Liq) 30 ml DAILY PRN PO 08/20/17 10:15 Nicardipine HCl 25 mg/Sodium Chloride 250 ml @ 50 mls/hr TITRATE PRN IV 08/20/17 10:15 (Coreg) 3.125 mg Q12HR PO 08/20/17 21:00 08/23/17 08:48 (Flomax) 0.4 mg HS PO 08/20/17 21:00 08/22/17 20:48 (Duoneb Neb) 1 ampule Q6HR NEB NEB 08/20/17 16:00 08/23/17 09:01 Sodium Chloride 1,000 ml @ 100 mls/hr Q10H IV 08/21/17 18:00 08/23/17 10:14 Levofloxacin/ Dextrose 50 ml @ 50 mls/hr Q24H IV 08/22/17 18:00 08/22/17 17:26 Vital Signs / I&O Vital Signs Date Time Temp Pulse Resp B/P (MAP) Pulse Ox O2 Delivery O2 Flow Rate FiO2 08/23/17 10:00 81 08/23/17 08:00 97.6 80 20 111/57 (75) 97 08/23/17 08:00 80 08/23/17 07:00 Room Air 97 08/23/17 04:00 98.1 84 20 104/57 (73) 94 08/23/17 00:00 98.0 74 13 90/61 (71) 95 08/22/17 20:00 Room Air 08/22/17 20:00 77 08/22/17 20:00 97.8 72 18 94/57 (69) 96 08/22/17 18:00 74 08/22/17 16:00 74 5/7/18 16:00 98.6 74 21 102/57 (72) 96 08/22/17 14:00 74 I/O 08/22/17 08/22/17 08/22/17 08/23/17 08/23/17 08/23/17 07:00 15:00 23:00 07:00 15:00 23:00 Intake Total 1000 ml 120 ml 170 ml 1250 ml 750 ml Output Total 200 ml 150 ml 300 ml Balance 1000 ml -80 ml 20 ml 950 ml 750 ml Intake Oral 120 ml 120 ml 250 ml IV Total 1000 ml 50 ml 1000 ml 750 ml Output Urine Total 200 ml 150 ml 300 ml # Voids 1 1 2 # Bowel Movements 1 0 Physical Exam GENERAL: SKIN: Warm and dry. HEAD: Normocephalic. EYES: No scleral icterus. No injection or drainage. NECK: Supple, trachea midline. No JVD or lymphadenopathy. CARDIOVASCULAR: Regular rate and rhythm without murmurs, gallops, or rubs. RESPIRATORY: Breath sounds equal bilaterally. No accessory muscle use. GASTROINTESTINAL: Abdomen soft, non-tender, nondistended. MUSCULOSKELETAL: No cyanosis, or edema. BACK: Nontender without obvious deformity. No CVA tenderness. Laboratory Laboratory Tests Test 08/23/17 05:36 White Blood Count 7.3 TH/MM3 Red Blood Count 2.56 MIL/MM3 Hemoglobin 7.7 GM/DL Hematocrit 22.8 % Mean Corpuscular Volume 89.2 FL Mean Corpuscular Hemoglobin 30.2 PG Mean Corpuscular Hemoglobin Concent 33.8 % Red Cell Distribution Width 14.1 % Platelet Count 192 TH/MM3 Mean Platelet Volume 7.2 FL Neutrophils (%) (Auto) 68.5 % Lymphocytes (%) (Auto) 11.3 % Monocytes (%) (Auto) 11.7 % Eosinophils (%) (Auto) 8.2 % Basophils (%) (Auto) 0.3 % Neutrophils # (Auto) 5.0 TH/MM3 Lymphocytes # (Auto) 0.8 TH/MM3 Monocytes # (Auto) 0.9 TH/MM3 Eosinophils # (Auto) 0.6 TH/MM3 Basophils # (Auto) 0.0 TH/MM3 CBC Comment DIFF FINAL Differential Comment Blood Urea Nitrogen 38 MG/DL Creatinine 1.75 MG/DL Random Glucose 142 MG/DL Calcium Level 8.1 MG/DL Sodium Level 138 MEQ/L Potassium Level 4.0 MEQ/L Chloride Level 106 MEQ/L Carbon Dioxide Level 24.2 MEQ/L Anion Gap 8 MEQ/L Estimat Glomerular Filtration Rate 37 ML/MIN Assessment and Plan Problem List: (1) CAD (coronary artery disease) ICD Codes: I25.10 - Atherosclerotic heart disease of [place] coronary artery without angina pectoris (2) Subdural hematoma ICD Codes: S06.5X9A - Traumatic subdural hemorrhage with loss of consciousness of unspecified duration, initial encounter Status: Acute (3) Cardiomyopathy ICD Codes: I42.9 - Cardiomyopathy, unspecified Assessment and Plan 1.) CAD - assymptomatic, dapt held due to sdh, Dr Joe montalvo, d/w Dr Yuan; pci was done 08/08/17 with 4.0/15 mm integrity bare metal stent Edi Gandara MD August 23, 2017 12:10
[2017-08-23] MEDS: LEVOFLOXACIN/DEXTROSE 250 MG/50 ML IV SCH (17:19)
[2017-08-23] MEDS: TAMSULOSIN HCL 0.4 MG CAP PO SCH (20:15)
[2017-08-24] VITALS (7 sets, daily range): BP systolic 109–125; BP diastolic 55–60; PULSE 76–89; RESP 20–26; TEMP 97.9–98.7; O2SAT 98–99
[2017-08-24] MEDS: levETIRAcetam 500 MG TAB PO SCH ×3 (00:47→22:19)
[2017-08-24] MEDS: RESP: ALBUTEROL 2.5 MG/IPRATROPIUM 0.5 MG NEB (SCH) NEB ×3 (03:57→15:00)
[2017-08-24] MEDS: SODIUM CHLOR 0.9% 1000 ML INJ 1,000 ML IV SCH ×2 (06:00→16:00)
[2017-08-24 06:29] LABS: AUTOMATED NEUTROPHIL # 4.1 TH/MM3 (1.8-7.7); BASOPHIL % 0.6 % (0.0-2.0); EOSINOPHIL # 0.7 TH/MM3 (0-0.4); EOSINOPHIL % 11.4 % (0.0-4.0); HEMOGLOBIN 7.4 GM/DL (13.0-17.0); LYMPH % 10.6 % (9.0-44.0); LYMPHOCYTE # 0.7 TH/MM3 (1.0-4.8); MEAN CELL VOLUME 88.4 FL (80.0-100.0); MEAN CORPUSCULAR HEMOGLOBIN 29.9 PG (27.0-34.0); MEAN CORPUSCULAR HGB CONC 33.8 % (32.0-36.0); MEAN PLATELET VOLUME 7.2 FL (7.0-11.0); MONO % 11.9 % (0.0-8.0); MONOCYTE # 0.7 TH/MM3 (0-0.9); NEUT % 65.5 % (16.0-70.0); PLATELET COUNT 198 TH/MM3 (150-450); RED BLOOD COUNT 2.49 MIL/MM3 (4.50-5.90); RED CELL DISTRIBUTION WIDTH 14.3 % (11.6-17.2); WHITE BLOOD COUNT 6.3 TH/MM3 (4.0-11.0)
[2017-08-24] MEDS: INSULIN NovoLIN REGULAR SUPPLEMENTAL SCALE SQ SCH ×4 (08:04→20:25)
[2017-08-24] MEDS: DOCUSATE SODIUM 50 MG/SENNA 8.6 MG TAB PO SCH ×2 (08:04→20:06)
[2017-08-24] MEDS: PANTOPRAZOLE SOD 40 MG DELAYED RELEASE TAB PO SCH (08:04)
[2017-08-24] MEDS: CARVEDILOL 3.125 MG TAB PO SCH ×2 (08:05→20:06)
[2017-08-24] MEDS: SODIUM CHLORIDE 0.9% FLUSH 10 ML FLUSH IV FLUSH SCH ×2 (08:05→20:07)
--- NOTE | 2017-08-24 09:28 | HHI.NSPN ---
(Abel Vail) History Chief Complaint: SDH. Periods of confusion at night. (Abel Vail) Interval History 82-year-old gentleman presents to the ER today brought in by his daughter because he apparently fell while getting into bed in the dark hitting the back of his head. He apparently he was lodged between the bed and the drawer, and he had to be helped up by daughter's . He is not sure whether he lost consciousness. He complains of back pain, but denies any other injuries. He is a poor historian with very dysarthric speech and heavy Irish accent. He relates that he has had passing out spells in the past with falls and frequent urinary urgency but no bowel control issues. Reportedly a few weeks ago he had coronary stenting and is on aspirin and Plavix therapy. CT scan of the head obtained reveals a left frontal 7 mm subdural hemorrhage with mild mass-effect and no midline shift. CT of the cervical spine is negative for any fractures with degenerative changes noted. 08/21/17: Pt awakens to voice. He reportedly was up all night and is fatigued now. He nods his head he does not have any headaches, nausea or vomiting. He follows commands. 08/22/17: Pt very awake this morning. He denies any headache, nausea, vomiting. He states he has some neck discomfort but no radiculopathy or paresthesias in UEs. 08/23/17: Pt again very awake this morning sitting up in bed with breathing treatment. Denies headaches, nausea, or vomiting. He complains of neck discomfort but not radiculopathy or paresthesias in UEs. Follows commands well. 08/24/17: Pt awake and alert. Sitting up in chair. Denies headache. Complains of neck discomfort but no radiculopathy or paresthesias in UEs. He follows commands well. (Abel Vail) Review of Systems General: Negative for: fever, chills, insomnia Respiratory: Negative for: shortness of breath, cough, sputum Cardiovascular: Negative for: chest pain Gastrointestinal: Negative for: nausea, vomitting, diarrhea, constipation ( Abel Vail) Exam Results Vital Signs Date Time Temp Pulse Resp B/P (MAP) Pulse Ox O2 Delivery O2 Flow Rate FiO2 08/24/17 08:00 98.3 77 22 125/59 (81) 99 08/24/17 07:00 Room Air 21 Intake and Output 08/24/17 08/24/17 08/25/17 08:00 16:00 00:00 Output Total 925 ml Balance -925 ml (Abel Vail) Physical Examination General: Pt awake and alert, sitting up in bed in NAD. Eyes: Pupils 3mm bilaterally reactive bilaterally. Sclera anicteric. Resp: CTA bilaterally Heart: NSR no murmurs Abd: Soft positive bs Skin: No cyanosis or erythema Muscle: Online Content Coordinator hands symmetrically, moves toes. Moves all 4 extremities well. Neuro: Pt awake and alert. Pupils 3mm bilaterally reactive bilaterally. He follows commands. Speech clear and appropriate. (Abel Vail) Lab, Micro, Other Results Last Impressions Head CT 08/21/17 0800 Signed Impressions: Service Date/Time: Monday, August 21, 2017 05:51 - CONCLUSION: Stable thin left frontal subdural hematoma Zachary Tracy MD Cervical Spine CT 08/20/17 0726 Signed Impressions: Service Date/Time: Sunday, August 20, 2017 07:36 - CONCLUSION: 1. No acute cervical spine abnormality is identified. 2. Stable degenerative changes, as above. Zachary Minaya MD Chest X-Ray 08/20/17 0638 Signed Impressions: Service Date/Time: Sunday, August 20, 2017 06:42 - CONCLUSION: Left suprahilar parenchymal opacity. Zachary Tracy MD Laboratory Tests Test 08/24/17 05:44 White Blood Count 6.3 TH/MM3 Red Blood Count 2.49 MIL/MM3 Hemoglobin 7.4 GM/DL Hematocrit 22.0 % Mean Corpuscular Volume 88.4 FL Mean Corpuscular Hemoglobin 29.9 PG Mean Corpuscular Hemoglobin Concent 33.8 % Red Cell Distribution Width 14.3 % Platelet Count 198 TH/MM3 Mean Platelet Volume 7.2 FL Neutrophils (%) (Auto) 65.5 % Lymphocytes (%) (Auto) 10.6 % Monocytes (%) (Auto) 11.9 % Eosinophils (%) (Auto) 11.4 % Basophils (%) (Auto) 0.6 % Neutrophils # (Auto) 4.1 TH/MM3 Lymphocytes # (Auto) 0.7 TH/MM3 Monocytes # (Auto) 0.7 TH/MM3 Eosinophils # (Auto) 0.7 TH/MM3 Basophils # (Auto) 0.0 TH/MM3 CBC Comment DIFF FINAL Differential Comment (Abel Vail) Medical Decision Making Impression and Plan A: 82 y/o M with acute a left frontal small subdural hemorrhage with mild mass- effect and no midline shift after a fall. 2. Cardiomyopathy with history of coronary artery disease with recent coronary stent placement on aspirin and Plavix therapy. Vitals have been stable. 3. Wnc-nqipmrr-hihribmxw diabetes mellitus. P: Continue to monitor neuro exam Rehab efforts with PT Continue to hold anticoagulation. Rehab placement. (Abel Vail) Attending Statement The exam, history, and the medical decision-making described in the above note were completed with the assistance of the mid-level provider. I reviewed and agree with the findings presented. I attest that I had a [id number] encounter with the patient on the same day, and personally performed and documented my assessment and findings in the medical record. (Sin Diaz MD) Abel Vail August 24, 2017 09:28 Sin Diaz MD August 24, 2017 16:56
--- NOTE | 2017-08-24 10:01 | HHI.PR ---
Subjective Remarks in no acute distress. no headache or nausea. has some pain/tenderness to the right chest. Objective Vitals Vital Signs Date Time Temp Pulse Resp B/P (MAP) Pulse Ox O2 Delivery O2 Flow Rate FiO2 08/24/17 08:00 98.3 77 22 125/59 (81) 99 08/24/17 08:00 77 08/24/17 07:00 97 Room Air 21 08/24/17 04:00 97.9 89 20 117/59 (78) 99 08/24/17 04:00 89 08/24/17 00:00 84 08/24/17 00:00 97.9 84 24 118/55 (76) 98 08/23/17 22:00 84 08/23/17 20:00 98.5 82 25 111/54 (73) 98 08/23/17 20:00 82 08/23/17 19:00 99 Room Air 08/23/17 18:00 88 08/23/17 16:00 97.8 78 20 96/54 (68) 98 08/23/17 16:00 78 08/23/17 14:00 72 08/23/17 12:00 97.6 80 20 114/54 (74) 99 08/23/17 12:00 80 08/23/17 10:00 81 I/O 08/23/17 08/23/17 08/23/17 08/24/17 08/24/17 08/24/17 06:59 14:59 22:59 06:59 14:59 22:59 Intake Total 1250 ml 750 ml 1290 ml Output Total 300 ml 750 ml 925 ml Balance 950 ml 750 ml 540 ml -925 ml Intake Oral 250 ml 240 ml IV Total 1000 ml 750 ml 1050 ml Output Urine Total 300 ml 750 ml 925 ml # Bowel Movements 0 0 0 Result Diagram: 08/24/17 0544 08/23/17 0536 Imaging Last Impressions Head CT 08/21/17 0800 Signed Impressions: Service Date/Time: Monday, August 21, 2017 05:51 - CONCLUSION: Stable thin left frontal subdural hematoma Zachary Tracy MD Cervical Spine CT 08/20/17 0726 Signed Impressions: Service Date/Time: Sunday, August 20, 2017 07:36 - CONCLUSION: 1. No acute cervical spine abnormality is identified. 2. Stable degenerative changes, as above. Zachary Minaya MD Chest X-Ray 08/20/17 0677 Signed Impressions: Service Date/Time: Sunday, August 20, 2017 06:42 - CONCLUSION: Left suprahilar parenchymal opacity. Zachary Tracy MD Objective Remarks GENERAL: This is a well-nourished, well-developed patient, in no apparent distress. CARDIOVASCULAR: Regular rate and regular rhythm without murmurs, gallops, or rubs. RESPIRATORY: Clear to auscultation. Breath sounds equal bilaterally. No wheezes , rales, or rhonchi. GASTROINTESTINAL: Abdomen soft, non-tender, nondistended. Normal, active bowel sounds MUSCULOSKELETAL: Extremities without clubbing, cyanosis, or edema. NEURO: awake and alert. Medications and IVs Inpatient Medications Acetaminophen (Tylenol) 650 mg Q4H PRN PO TEMPERATURE > 101.5 F; Start 08/20/17 at 10:15 Acetaminophen/ Hydrocodone Bitart ([place] 10-325 Mg) 2 tab Q4H PRN PO PAIN SCALE 6 TO 10; Start 08/20/17 at 10:15 Al Hydrox/Mg Hydrox/Simethicone (Mag-Al Plus Susp Liq) 30 ml Q6H PRN PO DYSPEPSIA; Start 08/20/17 at 10:15 Albuterol Sulfate (Albuterol Neb) 2.5 mg Q4HR NEB PRN NEB WHEEZING; Start at 10:15 Albuterol/ Ipratropium (Duoneb Neb) 1 ampule Q6HR NEB NEB Last administered on 08/24/17at 03:57; Start 08/20/17 at 16:00 Bisacodyl (Dulcolax Supp) 10 mg DAILY PRN RECTAL SEVERE CONSITIPATION; Start at 10:15 Calcium Gluconate 1 gm/Sodium Chloride 110 ml @ 110 mls/hr UNSCH PRN IV SEE LABEL COMMENTS; Start 08/20/17 at 10:15 Carvedilol (Coreg) 3.125 mg Q12HR PO Last administered on 08/24/17at 08:05; Start 08/20/17 at 21:00 Clonidine (Catapres) 0.1 mg Q6H PRN PO SYS BP GREATER THAN 170 MMHG; Start 08/20 at 10:15 Dextrose (D50w (Vial) Inj) 50 ml UNSCH PRN IV PUSH HYPOGLYCEMIA-SEE COMMENTS; Start 08/20/17 at 10:15 Glucagon (Glucagon Inj) 1 mg UNSCH PRN OTHER HYPOGLYCEMIA-SEE COMMENTS; Start 08/20/17 at 10:15 Insulin Human Regular (NovoLIN R SUPPLEMENTAL SCALE) 1 ACHS SLIDING SCALE SQ Last administered on 08/24/17at 08:04; Start 08/20/17 at 12:00 Labetalol HCl (Trandate Inj) 10 mg Q1H PRN IV PUSH SYS BP GREATER THAN 170 MMHG ; Start 08/20/17 at 10:15 Lactulose (Lactulose Liq) 30 ml DAILY PRN PO SEVERE CONSITIPATION; Start at 10:15 Levetriacetam (Keppra) 500 mg Q12H PO Last administered on 08/24/17at 00:47; Start 08/20/17 at 11:00 Levofloxacin/ Dextrose 50 ml @ 50 mls/hr Q24H IV Last administered on 08/23/17at 17:19; Start 08/22/17 at 18:00 Lorazepam (Ativan Inj) 1 mg Q1H PRN IV PUSH SEIZURES; Start 08/20/17 at 10:15 Magnesium Hydroxide (Milk Of Magnesia Liq) 30 ml Q12H PRN PO Mild constipation ; Start 08/20/17 at 10:15 Magnesium Sulfate 2 gm/Sodium Chloride 104 ml @ 100 mls/hr UNSCH PRN IV MAGNESIUM LESS THAN 2; Start 08/20/17 at 10:15 Menthol (Tyler Robin) 1 lozenge UNSCH PRN BUCCAL SORE THROAT; Start 08/20/17 at 10 :15 Morphine Sulfate (Morphine Inj) 2 mg Q2H PRN IV PUSH breakthrough pain>6; Start 08/20/17 at 10:15 Nicardipine HCl 25 mg/Sodium Chloride 250 ml @ 50 mls/hr TITRATE PRN IV Blood pressure management; Start 08/20/17 at 10:15 Pantoprazole Sodium (Protonix) 40 mg DAILY PO Last administered on 08/24/17at 08: 04; Start 08/21/17 at 09:00 Potassium Chloride 100 ml @ 50 mls/hr UNSCH PRN IV POTASSIUM LESS THAN 4; Start 5/5/18 at 10:15 Senna/Docusate Sodium (Martha-Colace) 1 tab BID PO Last administered on 08/24/17at 08:04; Start 08/20/17 at 21:00 Sennosides (Senokot) 17.2 mg Q12H PRN PO Moderate constipation; Start 08/20/17 at 10:15 Sodium Chloride 1,000 ml @ 100 mls/hr Q10H IV Last administered on 08/23/17at 20 :46; Start 08/21/17 at 18:00 Sodium Chloride (NS Flush) 2 ml BID IV FLUSH Last administered on 08/24/17at 08: 05; Start 08/20/17 at 21:00 Tamsulosin HCl (Flomax) 0.4 mg HS PO Last administered on 08/23/17at 20:15; Start 08/20/17 at 21:00 Zolpidem Tartrate (Ambien) 5 mg HS PRN PO INSOMNIA; Start 08/20/17 at 10:15 A/P Problem List: (1) Subdural hematoma ICD Code: S06.5X9A - Traumatic subdural hemorrhage with loss of consciousness of unspecified duration, initial encounter Status: Acute (2) CHF (congestive heart failure) ICD Code: I50.9 - Heart failure, unspecified (3) CAD (coronary artery disease) ICD Code: I25.10 - Atherosclerotic heart disease of [place] coronary artery without angina pectoris Assessment and Plan Subdural hematoma Patient fell and hit the back of his head yesterday 7 mm on left frontal lobe, mild mass-effect, no midline shift Breathing and cardiac status appears stable, neurologic status is safe to be monitored on [facility] at this point due to stable CT Awaiting transfer from ICU to [facility] Appreciate neurosurgery following h/o dementia Per daughter patient has history of dementia and is confused at times even at his own house He is able to perform basic functions like walking to his pharmacy or picking up some groceries He is not able to drive h/o coronary artery disease with stents, h/o CHF Cardiology consulted to assist with decision to hold anticoagulants Anticoagulants are being held due to subdural hematoma Patient's cardiac status will be followed on telemetry Resume anticoagulants for stent protection when cleared by neurosurgery Appreciate cardiology following Type 2 diabetes Continue sliding scale insulin with Accu-Cheks Diabetic diet Benign prostatic hypertrophy Continue home dose of Flomax renal insufficiency with unknown duration- suspect chronic due to diabetes will monitor the renal function. anemia- due to chronic disease anemia w/u- check the stool for blood- monitor H/H. DVT prophylaxis Chemoprophylaxis held due to subdural hematoma following fall SCDs continue PT. Discharge Planning dc planning to rehab when cleared by neurosurgery. Wes Ramos MD August 24, 2017 10:00
--- NOTE | 2017-08-24 10:02 | PQ ---
Physician Query Response Document PATIENT: KAITY HAYWARD : 1935 ADMIT DATE: 08/20/2017 8:47 AM DISCH DATE: RESPONDING PROVIDER #: [email or web address] QUERY TEXT: CDS Clarification Acute kidney failure POA in a patient w CKD and findings of initial regional account manager 1.50 GRF 45 BUN 25 Urine Outp ut 0.08 ml/KG/HR Other explanation of clinical findings. Unable to determine (no explanation for clinical findings). The medical record reflects the following clinical findings, treatment, and risk factors. * Clinical Indicators regional account manager 1.50 1.67 1.52 1.75 initial GRF 45 BUN 25 low urine output * Risk Factors DIABETES, CKD * Treatment -Monitor renal function closely , monitor I The patient's Clinical Indicators include: Please clarify and document your clinical opinion in the progress notes and discharge summary includi ng the definitive and/or presumptive diagnosis (suspected or probable), related to the above clinical findings. Please include clinical findings supporting your diagnosis. Thank you, Sharon Santiago CDS: Sharon Santiago Patient Unit: [id number] Room: 1334 Contact Number: CDS/RN ext. [phone] Query created by: Sharon Santiago on 08/23/2017 1:17 PM RESPONSE TEXT: Renal insufficiency with unknown duration- suspect chronic. Electronically signed by: Wes Ramos MD 08/24/2017 9:58 AM
--- NOTE | 2017-08-24 11:17 | PD.CARD.PN ---
Subjective Subjective Remarks lucid in nad Objective Medications Current Medications Medications (Trade) Dose Ordered Sig/Aki Route Start Time Stop Time Status Last Admin (D50w (Vial) Inj) 50 ml UNSCH PRN IV PUSH 08/20/17 10:15 (Glucagon Inj) 1 mg UNSCH PRN OTHER 08/20/17 10:15 (NovoLIN R SUPPLEMENTAL SCALE) 1 ACHS SLIDING SCALE SQ 08/20/17 12:00 08/24/17 08:04 (NS Flush) 2 ml UNSCH PRN IV FLUSH 08/20/17 10:15 (NS Flush) 2 ml BID IV FLUSH 08/20/17 21:00 08/24/17 08:05 (Keppra) 500 mg Q12H PO 08/20/17 11:00 08/24/17 00:47 (Ativan Inj) 1 mg Q1H PRN IV PUSH 08/20/17 10:15 (Mag-Al Plus Susp Liq) 30 ml Q6H PRN PO 08/20/17 10:15 (Protonix) 40 mg DAILY PO 08/21/17 09:00 08/24/17 08:04 Calcium Gluconate 1 gm/Sodium Chloride 110 ml @ 110 mls/hr UNSCH PRN IV 08/20/17 10:15 Potassium Chloride 100 ml @ 50 mls/hr UNSCH PRN IV 08/20/17 10:15 Magnesium Sulfate 2 gm/Sodium Chloride 104 ml @ 100 mls/hr UNSCH PRN IV 08/20/17 10:15 ([place] 10-325 Mg) 1 tab Q4H PRN PO 08/20/17 10:15 08/22/17 16:20 ([place] 10-325 Mg) 2 tab Q4H PRN PO 08/20/17 10:15 (Morphine Inj) 2 mg Q2H PRN IV PUSH 08/20/17 10:15 (Trandate Inj) 10 mg Q1H PRN IV PUSH 08/20/17 10:15 (Catapres) 0.1 mg Q6H PRN PO 08/20/17 10:15 (Tylenol) 650 mg Q4H PRN PO 08/20/17 10:15 (Ezel Robin) 1 lozenge UNSCH PRN BUCCAL 08/20/17 10:15 (Ambien) 5 mg HS PRN PO 08/20/17 10:15 (Albuterol Neb) 2.5 mg Q4HR NEB PRN NEB 08/20/17 10:15 (Martha-Colace) 1 tab BID PO 08/20/17 21:00 08/24/17 08:04 (Milk Of Magnesia Liq) 30 ml Q12H PRN PO 08/20/17 10:15 (Senokot) 17.2 mg Q12H PRN PO 08/20/17 10:15 (Dulcolax Supp) 10 mg DAILY PRN RECTAL 08/20/17 10:15 (Lactulose Liq) 30 ml DAILY PRN PO 08/20/17 10:15 Nicardipine HCl 25 mg/Sodium Chloride 250 ml @ 50 mls/hr TITRATE PRN IV 08/20/17 10:15 (Coreg) 3.125 mg Q12HR PO 08/20/17 21:00 08/24/17 08:05 (Flomax) 0.4 mg HS PO 08/20/17 21:00 08/23/17 20:15 (Duoneb Neb) 1 ampule Q6HR NEB NEB 08/20/17 16:00 08/24/17 03:57 Sodium Chloride 1,000 ml @ 100 mls/hr Q10H IV 08/21/17 18:00 08/23/17 20:46 Levofloxacin/ Dextrose 50 ml @ 50 mls/hr Q24H IV 08/22/17 18:00 08/23/17 17:19 Vital Signs / I&O Vital Signs Date Time Temp Pulse Resp B/P (MAP) Pulse Ox O2 Delivery O2 Flow Rate FiO2 08/24/17 08:00 98.3 77 22 125/59 (81) 99 08/24/17 08:00 77 08/24/17 07:00 97 Room Air 21 08/24/17 04:00 97.9 89 20 117/59 (78) 99 08/24/17 04:00 89 08/24/17 00:00 84 08/24/17 00:00 97.9 84 24 118/55 (76) 98 08/23/17 22:00 84 08/23/17 20:00 98.5 82 25 111/54 (73) 98 08/23/17 20:00 82 08/23/17 19:00 99 Room Air 08/23/17 18:00 88 08/23/17 16:00 97.8 78 20 96/54 (68) 98 08/23/17 16:00 78 08/23/17 14:00 72 08/23/17 12:00 97.6 80 20 114/54 (74) 99 08/23/17 12:00 80 I/O 08/23/17 08/23/17 08/23/17 08/24/17 08/24/17 08/24/17 07:00 15:00 23:00 07:00 15:00 23:00 Intake Total 1250 ml 750 ml 1290 ml Output Total 300 ml 750 ml 925 ml Balance 950 ml 750 ml 540 ml -925 ml Intake Oral 250 ml 240 ml IV Total 1000 ml 750 ml 1050 ml Output Urine Total 300 ml 750 ml 925 ml # Bowel Movements 0 0 0 Physical Exam GENERAL: SKIN: Warm and dry. HEAD: Normocephalic. EYES: No scleral icterus. No injection or drainage. NECK: Supple, trachea midline. No JVD or lymphadenopathy. CARDIOVASCULAR: Regular rate and rhythm without murmurs, gallops, or rubs. RESPIRATORY: Breath sounds equal bilaterally. No accessory muscle use. GASTROINTESTINAL: Abdomen soft, non-tender, nondistended. MUSCULOSKELETAL: No cyanosis, or edema. BACK: Nontender without obvious deformity. No CVA tenderness. Laboratory Laboratory Tests Test 08/24/17 05:44 White Blood Count 6.3 TH/MM3 Red Blood Count 2.49 MIL/MM3 Hemoglobin 7.4 GM/DL Hematocrit 22.0 % Mean Corpuscular Volume 88.4 FL Mean Corpuscular Hemoglobin 29.9 PG Mean Corpuscular Hemoglobin Concent 33.8 % Red Cell Distribution Width 14.3 % Platelet Count 198 TH/MM3 Mean Platelet Volume 7.2 FL Neutrophils (%) (Auto) 65.5 % Lymphocytes (%) (Auto) 10.6 % Monocytes (%) (Auto) 11.9 % Eosinophils (%) (Auto) 11.4 % Basophils (%) (Auto) 0.6 % Neutrophils # (Auto) 4.1 TH/MM3 Lymphocytes # (Auto) 0.7 TH/MM3 Monocytes # (Auto) 0.7 TH/MM3 Eosinophils # (Auto) 0.7 TH/MM3 Basophils # (Auto) 0.0 TH/MM3 CBC Comment DIFF FINAL Differential Comment Assessment and Plan Problem List: (1) CAD (coronary artery disease) ICD Codes: I25.10 - Atherosclerotic heart disease of [place] coronary artery without angina pectoris (2) Subdural hematoma ICD Codes: S06.5X9A - Traumatic subdural hemorrhage with loss of consciousness of unspecified duration, initial encounter Status: Acute (3) Cardiomyopathy ICD Codes: I42.9 - Cardiomyopathy, unspecified Assessment and Plan 1.) CAD - assymptomatic, dapt held due to sdh, Dr Diaz following, d/w Dr Yuan; pci was done 08/08/17 with 4.0/15 mm integrity bare metal stent Edi Gandara MD August 24, 2017 11:17
[2017-08-24 12:44] LABS: % SATURATION IRON PROFILE 7.3 % (20-50); IRON (FE) 18 MCG/DL (65-175); TOTAL IRON BINDING CAPACITY 248 MCG/DL (250-450)
[2017-08-24 12:47] LABS: FERRITIN 97 NG/ML (26-388)
[2017-08-24] MEDS: LEVOFLOXACIN/DEXTROSE 250 MG/50 ML IV SCH (17:46)
[2017-08-24] MEDS: TAMSULOSIN HCL 0.4 MG CAP PO SCH (20:06)
[2017-08-25] VITALS: BP 104/55; PULSE 80; RESP 17; TEMP 98; O2SAT 97
[2017-08-25] MEDS: SODIUM CHLOR 0.9% 1000 ML INJ 1,000 ML IV SCH ×2 (02:00→11:04)
[2017-08-25 04:00] VITALS: BP 124/61; PULSE 72; PULSE 73; RESP 15; TEMP 98; O2SAT 96
[2017-08-25 06:37] LABS: HEMATOCRIT 22.2 % (39.0-51.0); HEMOGLOBIN 7.6 GM/DL (13.0-17.0)
[2017-08-25 08:00] VITALS: BP 123/59; PULSE 75; RESP 22; TEMP 98.4; O2SAT 98
[2017-08-25] MEDS: INSULIN NovoLIN REGULAR SUPPLEMENTAL SCALE SQ SCH ×2 (08:00→12:00)
[2017-08-25] MEDS: DOCUSATE SODIUM 50 MG/SENNA 8.6 MG TAB PO SCH (08:11)
[2017-08-25] MEDS: CARVEDILOL 3.125 MG TAB PO SCH (08:11)
[2017-08-25] MEDS: SODIUM CHLORIDE 0.9% FLUSH 10 ML FLUSH IV FLUSH SCH (08:11)
[2017-08-25] MEDS: PANTOPRAZOLE SOD 40 MG DELAYED RELEASE TAB PO SCH (08:11)
--- NOTE | 2017-08-25 11:02 | HHI.PR ---
Subjective Remarks in no acute distress. resting comfortably. no headache, nausea or vomiting. d/w the RN and no acute issues over night. Objective Vitals Vital Signs Date Time Temp Pulse Resp B/P (MAP) Pulse Ox O2 Delivery O2 Flow Rate FiO2 08/25/17 08:00 98.4 75 22 123/59 (80) 98 08/25/17 08:00 75 08/25/17 07:00 98 Room Air 21 08/25/17 04:00 98.0 73 15 124/61 (82) 96 08/25/17 04:00 72 08/25/17 00:00 98.0 80 17 104/55 (71) 97 08/25/17 00:00 80 08/24/17 20:00 80 08/24/17 20:00 97.9 80 24 115/56 (75) 98 08/24/17 19:00 98 Room Air 08/24/17 16:00 98.7 82 20 113/60 (77) 98 08/24/17 16:00 78 08/24/17 12:00 77 08/24/17 12:00 98.2 76 26 109/58 (75) 99 08/24/17 11:20 99 21 I/O 08/24/17 08/24/17 08/24/17 08/25/17 08/25/17 08/25/17 07:00 15:00 23:00 07:00 15:00 23:00 Intake Total 480 ml 240 ml Output Total 925 ml 800 ml Balance -925 ml -320 ml 240 ml Intake Oral 480 ml 240 ml Output Urine Total 925 ml 800 ml # Voids 6 # Bowel Movements 0 1 2 Result Diagram: 08/25/17 0549 08/23/17 0536 Imaging Last Impressions Head CT 08/21/17 0800 Signed Impressions: Service Date/Time: Monday, August 21, 2017 05:51 - CONCLUSION: Stable thin left frontal subdural hematoma Zachary Tracy MD Cervical Spine CT 08/20/17 07 Signed Impressions: Service Date/Time: Sunday, August 20, 2017 07:36 - CONCLUSION: 1. No acute cervical spine abnormality is identified. 2. Stable degenerative changes, as above. Zachary Minaya MD Chest X-Ray 08/20/17 0664 Signed Impressions: Service Date/Time: Sunday, August 20, 2017 06:42 - CONCLUSION: Left suprahilar parenchymal opacity. Zachary Tracy MD Objective Remarks GENERAL: This is a well-nourished, well-developed patient, in no apparent distress. CARDIOVASCULAR: Regular rate and regular rhythm without murmurs, gallops, or rubs. RESPIRATORY: Clear to auscultation. Breath sounds equal bilaterally. No wheezes , rales, or rhonchi. GASTROINTESTINAL: Abdomen soft, non-tender, nondistended. Normal, active bowel sounds MUSCULOSKELETAL: Extremities without clubbing, cyanosis, or edema. NEURO: awake and alert. Medications and IVs Inpatient Medications Acetaminophen (Tylenol) 650 mg Q4H PRN PO TEMPERATURE > 101.5 F; Start 08/20/17 at 10:15 Acetaminophen/ Hydrocodone Bitart ([place] 10-325 Mg) 2 tab Q4H PRN PO PAIN SCALE 6 TO 10; Start 08/20/17 at 10:15 Al Hydrox/Mg Hydrox/Simethicone (Mag-Al Plus Susp Liq) 30 ml Q6H PRN PO DYSPEPSIA; Start 08/20/17 at 10:15 Albuterol Sulfate (Albuterol Neb) 2.5 mg Q4HR NEB PRN NEB WHEEZING; Start at 10:15 Albuterol/ Ipratropium (Duoneb Neb) 1 ampule Q6HR NEB NEB Last administered on 08/24/17at 15:00; Start 08/20/17 at 16:00; Stop 08/24/17 at 15:59; Status DC Bisacodyl (Dulcolax Supp) 10 mg DAILY PRN RECTAL SEVERE CONSITIPATION; Start at 10:15 Calcium Gluconate 1 gm/Sodium Chloride 110 ml @ 110 mls/hr UNSCH PRN IV SEE LABEL COMMENTS; Start 08/20/17 at 10:15 Carvedilol (Coreg) 3.125 mg Q12HR PO Last administered on 08/25/17at 08:11; Start 08/20/17 at 21:00 Clonidine (Catapres) 0.1 mg Q6H PRN PO SYS BP GREATER THAN 170 MMHG; Start 08/20 at 10:15 Dextrose (D50w (Vial) Inj) 50 ml UNSCH PRN IV PUSH HYPOGLYCEMIA-SEE COMMENTS; Start 08/20/17 at 10:15 Glucagon (Glucagon Inj) 1 mg UNSCH PRN OTHER HYPOGLYCEMIA-SEE COMMENTS; Start 08/20/17 at 10:15 Insulin Human Regular (NovoLIN R SUPPLEMENTAL SCALE) 1 ACHS SLIDING SCALE SQ Last administered on 08/24/17at 20:25; Start 08/20/17 at 12:00 Labetalol HCl (Trandate Inj) 10 mg Q1H PRN IV PUSH SYS BP GREATER THAN 170 MMHG ; Start 08/20/17 at 10:15 Lactulose (Lactulose Liq) 30 ml DAILY PRN PO SEVERE CONSITIPATION; Start at 10:15 Levetriacetam (Keppra) 500 mg Q12H PO Last administered on 08/24/17at 22:19; Start 08/20/17 at 11:00 Levofloxacin/ Dextrose 50 ml @ 50 mls/hr Q24H IV Last administered on 08/24/17at 17:46; Start 08/22/17 at 18:00 Lorazepam (Ativan Inj) 1 mg Q1H PRN IV PUSH SEIZURES; Start 08/20/17 at 10:15 Magnesium Hydroxide (Milk Of Magnesia Liq) 30 ml Q12H PRN PO Mild constipation ; Start 08/20/17 at 10:15 Magnesium Sulfate 2 gm/Sodium Chloride 104 ml @ 100 mls/hr UNSCH PRN IV MAGNESIUM LESS THAN 2; Start 08/20/17 at 10:15 Menthol ([place]) 1 lozenge UNSCH PRN BUCCAL SORE THROAT; Start 08/20/17 at 10 :15 Morphine Sulfate (Morphine Inj) 2 mg Q2H PRN IV PUSH breakthrough pain>6; Start 08/20/17 at 10:15 Nicardipine HCl 25 mg/Sodium Chloride 250 ml @ 50 mls/hr TITRATE PRN IV Blood pressure management; Start 08/20/17 at 10:15 Pantoprazole Sodium (Protonix) 40 mg DAILY PO Last administered on 08/25/17at 08 :11; Start 08/21/17 at 09:00 Potassium Chloride 100 ml @ 50 mls/hr UNSCH PRN IV POTASSIUM LESS THAN 4; Start 08/20/17 at 10:15 Senna/Docusate Sodium (Martha-Colace) 1 tab BID PO Last administered on 08/24/17at 20:06; Start 08/20/17 at 21:00 Sennosides (Senokot) 17.2 mg Q12H PRN PO Moderate constipation; Start 08/20/17 at 10:15 Sodium Chloride 1,000 ml @ 100 mls/hr Q10H IV Last administered on 08/25/17at 02:00; Start 08/21/17 at 18:00 Sodium Chloride (NS Flush) 2 ml BID IV FLUSH Last administered on 08/25/17at 08: 11; Start 08/20/17 at 21:00 Tamsulosin HCl (Flomax) 0.4 mg HS PO Last administered on 08/24/17at 20:06; Start 08/20/17 at 21:00 Zolpidem Tartrate (Ambien) 5 mg HS PRN PO INSOMNIA; Start 08/20/17 at 10:15 A/P Problem List: (1) Subdural hematoma ICD Code: S06.5X9A - Traumatic subdural hemorrhage with loss of consciousness of unspecified duration, initial encounter Status: Acute (2) CHF (congestive heart failure) ICD Code: I50.9 - Heart failure, unspecified (3) CAD (coronary artery disease) ICD Code: I25.10 - Atherosclerotic heart disease of [place] coronary artery without angina pectoris Assessment and Plan Subdural hematoma Patient fell and hit the back of his head yesterday 7 mm on left frontal lobe, mild mass-effect, no midline shift neurosurgery following. h/o dementia Per daughter patient has history of dementia and is confused at times even at his own house He is able to perform basic functions like walking to his pharmacy or picking up some groceries He is not able to drive h/o coronary artery disease with stents, h/o CHF Cardiology consulted to assist with decision to hold anticoagulants Anticoagulants are being held due to subdural hematoma Patient's cardiac status will be followed on telemetry Resume anticoagulants for stent protection when cleared by neurosurgery Appreciate cardiology following Type 2 diabetes Continue sliding scale insulin with Accu-Cheks Diabetic diet Benign prostatic hypertrophy Continue home dose of Flomax renal insufficiency with unknown duration- suspect chronic due to diabetes will monitor the renal function. anemia- due to chronic disease H/H fairly stable- the stool for blood pending. monitor H/H. questionable pneumonia continue Levaquin. DVT prophylaxis Chemoprophylaxis held due to subdural hematoma following fall SCDs continue PT. Discharge Planning dc planning to rehab when cleared by neurosurgery. Wes Ramos MD August 25, 2017 11:02
[2017-08-25] MEDS: levETIRAcetam 500 MG TAB PO SCH (11:04)
--- NOTE | 2017-08-25 11:42 | HHI.NSPN ---
History Chief Complaint: SDH. Periods of confusion at night. Interval History 82-year-old gentleman presents to the ER today brought in by his daughter because he apparently fell while getting into bed in the dark hitting the back of his head. He apparently he was lodged between the bed and the drawer, and he had to be helped up by daughter's . He is not sure whether he lost consciousness. He complains of back pain, but denies any other injuries. He is a poor historian with very dysarthric speech and heavy S[place] accent. He relates that he has had passing out spells in the past with falls and frequent urinary urgency but no bowel control issues. Reportedly a few weeks ago he had coronary stenting and is on aspirin and Plavix therapy. CT scan of the head obtained reveals a left frontal 7 mm subdural hemorrhage with mild mass-effect and no midline shift. CT of the cervical spine is negative for any fractures with degenerative changes noted. 08/21/17: Pt awakens to voice. He reportedly was up all night and is fatigued now. He nods his head he does not have any headaches, nausea or vomiting. He follows commands. 08/22/17: Pt very awake this morning. He denies any headache, nausea, vomiting. He states he has some neck discomfort but no radiculopathy or paresthesias in UEs. 08/23/17: Pt again very awake this morning sitting up in bed with breathing treatment. Denies headaches, nausea, or vomiting. He complains of neck discomfort but not radiculopathy or paresthesias in UEs. Follows commands well. 08/24/17: Pt awake and alert. Sitting up in chair. Denies headache. Complains of neck discomfort but no radiculopathy or paresthesias in UEs. He follows commands well. 08/25/17: Pt awakens easily to voice. No headaches. No n/v. Follows commands well. Review of Systems General: Negative for: fever, chills, insomnia Respiratory: Negative for: shortness of breath, cough, sputum Cardiovascular: Negative for: chest pain Gastrointestinal: Negative for: nausea, vomitting, diarrhea, constipation Exam Results Vital Signs Date Time Temp Pulse Resp B/P (MAP) Pulse Ox O2 Delivery O2 Flow Rate FiO2 08/25/17 08:00 98.4 75 22 123/59 (80) 98 08/25/17 07:00 Room Air 21 Intake and Output 08/25/17 08/25/17 08/26/17 08:00 16:00 00:00 Intake Total 240 ml Balance 240 ml Physical Examination General: Pt awakens easily and is pleasant. Eyes: Pupils 3mm bilaterally reactive bilaterally. Sclera anicteric. Resp: CTA bilaterally Heart: NSR no murmurs Abd: Soft positive bs Skin: No cyanosis or erythema Muscle: Inseam Trimmer hands symmetrically, moves toes. Moves all 4 extremities well. Neuro: Pt awake and alert. Pupils 3mm bilaterally reactive bilaterally. He follows commands. Speech clear and appropriate. Lab, Micro, Other Results Last Impressions Head CT 08/21/17 0800 Signed Impressions: Service Date/Time: Monday, August 21, 2017 05:51 - CONCLUSION: Stable thin left frontal subdural hematoma Zachary Tracy MD Cervical Spine CT 08/20/17 0726 Signed Impressions: Service Date/Time: Sunday, August 20, 2017 07:36 - CONCLUSION: 1. No acute cervical spine abnormality is identified. 2. Stable degenerative changes, as above. Zachary Minaya MD Chest X-Ray 08/20/17 0638 Signed Impressions: Service Date/Time: Sunday, August 20, 2017 06:42 - CONCLUSION: Left suprahilar parenchymal opacity. Zachary Tracy MD Laboratory Tests Test 08/24/17 12:07 08/25/17 05:49 Iron Level 18 MCG/DL Total Iron Binding Capacity 248 MCG/DL Percent Iron Saturation 7.3 % Ferritin 97 NG/ML Hemoglobin 7.6 GM/DL Hematocrit 22.2 % Medical Decision Making Impression and Plan A: 82 y/o M with acute a left frontal small subdural hemorrhage with mild mass- effect and no midline shift after a fall. 2. Cardiomyopathy with history of coronary artery disease with recent coronary stent placement on aspirin and Plavix therapy. Vitals have been stable. 3. Acs-[id number] diabetes mellitus. P: Rehab placement Follow up CT head in 2 weeks. Abel Vail August 25, 2017 11:42 am
[2017-08-25 12:00] VITALS: BP 130/63; PULSE 80; RESP 22; TEMP 98.8; O2SAT 98
[2017-08-25] MEDS ORDERED: LEVE500 PO (12:37)
[2017-08-25] MEDS ORDERED: LEVA250T14 PO (13:02)
== END 2017-08-25 14:14 | DRG 86 ==
LOC: NEPC 06:22 → NEDA 08:47 → N03A 12:22
PROVIDERS: ADMIT Neurological Surgery; ATTEND Neurological Surgery
DX: S06.5X0A Traumatic subdural hemorrhage without loss of consciousness, initial encounter (principal); N17.9 Acute kidney failure, unspecified; I42.9 Cardiomyopathy, unspecified; E11.22 Type 2 diabetes mellitus with diabetic chronic kidney disease; F03.90 Unspecified dementia, unspecified severity, without behavioral disturbance, psychotic disturbance, mood disturbance, and anxiety; D63.8 Anemia in other chronic diseases classified elsewhere; Z79.4 Long term (current) use of insulin; Z91.81 History of falling; N18.9 Chronic kidney disease, unspecified; I25.10 Atherosclerotic heart disease of native coronary artery without angina pectoris; I34.0 Nonrheumatic mitral (valve) insufficiency; I50.9 Heart failure, unspecified; N40.1 Benign prostatic hyperplasia with lower urinary tract symptoms; Z95.5 Presence of coronary angioplasty implant and graft; W06.XXXA Fall from bed, initial encounter; Z79.84 Long term (current) use of oral hypoglycemic drugs; Z87.891 Personal history of nicotine dependence; Z79.82 Long term (current) use of aspirin; Z79.02 Long term (current) use of antithrombotics/antiplatelets
CPT/HCPCS: 70450; 71045; 72125; 76937; 80048; 80053; 81001; 82728; 82948; 83540; 83550; 83690; 83735; 85014; 85018; 85025; 85610; 85730; 87040; 87641; 94150; 94640; 94664; J1956; J7030

== ENCOUNTER 2017-10-04 14:01 | Emergency (ER) | payer MEDICARE, BC, OTHER ==
[~2017-10-04] VITALS: Ht 172.7 cm; Wt 60.0 kg
[~2017-10-04 14:01] MED LIST changes: -ECASA81 PO; +LEVA250T14 PO; +LEVE500 PO; -METF500T PO
[2017-10-04 14:20] VITALS: BP 100/58; PULSE 91; RESP 20; TEMP 98.1; O2SAT 100
--- NOTE | 2017-10-04 14:52 | PD ---
HPI Chief Complaint: Head Injury Time Seen by Provider: 14:33 Travel History International Travel<30 days: No Contact w/Intl Traveler<30days: No Traveled to known affect area: No History of Present Illness HPI This patient complains of head injury. Patient had a fall several weeks back and had a subdural hemorrhage. He was hospitalized and had neurosurgery evaluation but no surgery was needed. He went to a rehab home briefly but now is back home getting home physical therapy. He is still not steady with gait. Yesterday morning he stumbled getting out of bed and fell and hit the back of his head. He has no neck pain. Headache is very mild. Symptom severity is mild. No alleviating factors. Duration is about 30 hours. No alleviating factors. No exacerbating factors. PFSH Past Medical History Anxiety: No Depression: Yes Cancer: Yes Cardiovascular Problems: Yes High Cholesterol: No Chest Pain: No Congestive Heart Failure: No Diabetes: Yes Genitourinary: No Immune Disorder: No Musculoskeletal: No Neurologic: No Psychiatric: Yes Reproductive: No Respiratory: No Past Surgical History Cardiac Surgery: Yes Social History Alcohol Use: No Tobacco Use: No Substance Use: No Allergies-Medications (Allergen,Severity, Reaction): Coded Allergies: No Known Allergies (Unverified , 10/04/17) Reported Meds & Prescriptions Reported Meds & Active Scripts Active Keppra (Levetiracetam) 500 Mg Tab 500 Mg PO Q12H 30 Days Coreg (Carvedilol) 3.125 Mg Tab 3.125 Mg PO Q12HR Check blood pressure every morning, do not take this medication if BP less than 110 Reported Aspirin Low Dose (Aspirin) 81 Mg Chew 81 Mg CHEW DAILY Glimepiride 1 Mg Tab 0.5 Mg PO DAILY Take with breakfast or first main meal Tamsulosin (Tamsulosin HCl) 0.4 Mg Cap 0.4 Mg PO HS Review of Systems General / Constitutional: No: Fever Eyes: No: Visual changes HENT: Positive: Headaches Cardiovascular: No: Chest Pain or Discomfort Respiratory: No: Shortness of Breath Gastrointestinal: No: Abdominal Pain Genitourinary: No: Dysuria Musculoskeletal: No: Pain Skin: No Rash Neurologic: Positive: Ataxia, Headache, No: Weakness Psychiatric: No: Depression Endocrine: No: Polydipsia Hematologic/Lymphatic: No: Easy Bruising Physical Exam Narrative GENERAL: Thin elderly well-developed patient in no apparent distress. SKIN: Focused skin assessment reveals no rash and nodules. Skin is Warm and dry. HEAD: Atraumatic. Normocephalic. EYES: Pupils equal and round. No scleral icterus. No injection or drainage. ENT: No nasal bleeding or discharge. Mucous membranes pink and moist. NECK: Trachea midline. No JVD. CARDIOVASCULAR: Regular rate and rhythm. No murmur appreciated. RESPIRATORY: No accessory muscle use. Clear to auscultation. Breath sounds equal bilaterally. GASTROINTESTINAL: Abdomen soft, non-tender, nondistended. Hepatic and splenic margins not palpable. MUSCULOSKELETAL: No obvious deformities. No clubbing. No cyanosis. No edema. NEUROLOGICAL: Awake and alert. No obvious cranial nerve deficits. Motor grossly within normal limits. Normal speech. PSYCHIATRIC: Appropriate mood and affect; insight and judgment normal. Data Data Last Documented VS Vital Signs Date Time Temp Pulse Resp B/P (MAP) Pulse Ox O2 Delivery O2 Flow Rate FiO2 10/04/17 15:21 78 16 100 Room Air 10/04/17 15:20 113/61 (78) 10/04/17 14:[address] Brain W/O Iv Contrast(Rout) (10/04/17 ) [facility] Medical Decision Making Medical Screen Exam Complete: Yes Emergency Medical Condition: Yes Medical Record Reviewed: Yes Differential Diagnosis Intracranial hemorrhage, concussion, contusion Narrative Course I have reviewed the patient's electronic medical record. Reviewed his prior CT and neurosurgical evaluation Patient has no new neurological deficit He has some gait issues and is getting physical therapy for that, these are chronic Brain CT today is normal. Prior bleeding is resolved. Stable for outpatient follow-up Diagnosis Primary Impression: Head injury Qualified Codes: S09.90XA - Unspecified injury of head, initial encounter Additional Impression: History of intracranial hemorrhage Additional Instructions: The patient was advised to follow up with their physician and return if they worsen. Med/Other Pt SpecificInfo: Other Disposition: 01 DISCHARGE HOME Condition: Stable Cornelio Oliveira MD Oct 04, 2017 14:52
[2017-10-04 15:20] VITALS: BP 113/61; PULSE 78; RESP 16; O2SAT 100
[2017-10-04] MEDS ORDERED: ASPI81CH6 CHEW (15:24)
--- NOTE | 2017-10-04 15:58 | RADRPT ---
EXAM DATE: 10/04/2017 3:15 PM EDT AGE/SEX: 82 years / Male INDICATIONS: Fall, hit head, vision changes. CLINICAL DATA: This is the patient's initial encounter. Patient reports that signs and symptoms have been present for 1 day and indicates a pain score of 4/10. MEDICAL/SURGICAL HISTORY: Cardiovascular disease. Diabetes. None. RADIATION DOSE: 36.62 CTDI (mGy) COMPARISON: [facility] [place] BRAIN [place]/O [place], 08/21/2017. . TECHNIQUE: CT of the head without contrast. Using automated exposure control and adjustment of the mA and/or kV according to patient size, radiation dose was kept as low as reasonably achievable to ob tain optimal diagnostic quality images. DICOM format image data is available electronically for revi ew and comparison. FINDINGS: Cerebrum: The ventricles are normal for age. No evidence of midline shift, mass lesion, hemorrhage or acute infarction. No extraaxial fluid collections are seen. Posterior Fossa: The cerebellum and brainstem are intact. The 4th ventricle is midline. The cerebe llopontine angle is unremarkable. Extracranial: The visualized portion of the orbits is intact. Skull: The calvaria is intact. No evidence of skull fracture. CONCLUSION: 1. No acute intracranial abnormality identified. 2. The previously seen left frontal subdural has completely resolved. Electronically signed by: Tito Kuhn MD 10/04/2017 3:56 PM EDT
== END 2017-10-04 19:13 | disposition home or self-care (01) ==
LOC: NEPC 14:01
DX: S09.90XA Unspecified injury of head, initial encounter (principal); F32.9 Major depressive disorder, single episode, unspecified; E11.9 Type 2 diabetes mellitus without complications; Z79.82 Long term (current) use of aspirin; Z79.899 Other long term (current) drug therapy; W06.XXXA Fall from bed, initial encounter
CPT/HCPCS: 70450